=== PATIENT | female | born 1980 | race Caucasian/White ===

== ENCOUNTER → 2016-08-06 | Outpatient (CLI) | payer OTHER ==
[~2016-08-06] MED LIST: COLA100C3 PO; IBUP80TA PO; PERCOCET PO; PRENTAB40 PO; TYLE325T5 PO; TYLE500T78 PO; ZYRT10CA PO
[2016-08-06 13:10] LABS: BASO # 0.1 K/mm3 (0.0-0.2); BASO % 0.7 % (0.0-1.0); EOS # 0.2 K/mm3 (0.0-0.50); EOS % 1.9 % (0.0-3.0); LARGE UNSTAINED CELL # 0.1 K/mm3 (0.0-0.4); LARGE UNSTAINED CELL % 0.9 % (0.0-4.0); LYMPH # 1.8 K/mm3 (1.5-4.5); LYMPH % 19.6 % (24.0-44.0); MEAN CORPUSCULAR HEMOGLOBIN 29.7 pg (27.0-33.0); MEAN CORPUSCULAR HGB CONC 32.7 g/dl (32.0-36.5); MEAN CORPUSCULAR VOLUME 90.7 fl (80.0-96.0); MONO # 0.5 K/mm3 (0.0-0.8); MONO % 5.8 % (0.0-5.0); NEUTROPHILS # 6.1 K/mm3 (1.8-7.7); NEUTROPHILS % 71.2 % (36.0-66.0); PLATELET COUNT, AUTOMATED 348 k/mm3 (150-450); RED CELL DISTRIBUTION WIDTH 12.9 % (11.5-14.5); WHITE BLOOD COUNT 8.6 K/mm3 (4.0-10.0)
[2016-08-07 10:12] LABS: HBsAg Prenatal NEGATIVE (NEGATIVE)
== END ==
LOC: M WUC 08:24
PROVIDERS: ATTEND Specialist
DX: Z34.81 Encounter for supervision of other normal pregnancy, first trimester (principal)

== ENCOUNTER → 2016-10-30 | Outpatient (CLI) | payer OTHER ==
[~2016-10-30] MED LIST changes: -COLA100C3 PO; +COLA100C5 PO
--- NOTE | 2016-10-30 09:21 | REP ---
OBSTETRIC SONOGRAPHY: HISTORY: Supervision of for anatomy. Scanning through the gravid uterus demonstrates a viable single intrauterine gestation in a variable lie. motion is observed and heart rate is recorded at 144 beats per minute. An anterior grade 0 placenta is seen without evidence of previa. Amniotic fluid is subjectively normal. Closed cervical length is 5.1 cm measured transabdominally. No extrauterine abnormalities observed. No anomaly is seen. Cerebellum and posterior fossa, face and profile, four-chamber heart and outflow tract views are less than optimally seen due to position. The following additional anatomic structures are identified and felt to be sonographically unremarkable: cranium, choroid plexus, cavum, lungs, diaphragm, left-sided stomach, abdominal wall cord insertion, three-vessel umbilical cord, kidneys and bladder, spine, upper and lower extremities. Biometry Chart: BPD 4.9 cm = 20 weeks 6 days HC 18.8 cm = 21 weeks 1 day AC 16.0 cm = 21 weeks 1 day FL 3.5 cm = 21 weeks 1 day HL 3.3 cm = 21 weeks 0 days HC/AC ratio normal 1.18. Cephalic index normal 0.72. Estimated weight 398 grams, 0 pounds 14 ounces, 88th percentile for 20 weeks 0 days. IMPRESSION: Viable single intrauterine gestation at 21 weeks 0 days by today's composite criteria. DEVIN by today's sonography March 12, 2017. anatomic survey incomplete regarding visualization of face, heart and posterior fossa and cerebellum. Signed by Malick Lora MD 10/30/2016 10:48 A
== END ==
LOC: M RAD 07:12
PROVIDERS: ATTEND Specialist
DX: Z34.82 Encounter for supervision of other normal pregnancy, second trimester (principal)

== ENCOUNTER → 2016-10-30 | Outpatient (CLI) | payer OTHER ==
[2016-10-30 08:56] LABS: ALT/SGPT 12 U/L (12-78); AST/SGOT 7 U/L (15-37); BILIRUBIN,TOTAL 0.2 MG/DL (0.2-1.0); CREATININE FOR GFR 0.49 MG/DL (0.55-1.02); GLOMERULAR FILTRATION RATE > 60.0 (>60); URIC ACID 4.1 MG/DL (2.6-6.0)
== END ==
LOC: M LAB 06:40
PROVIDERS: ATTEND Advanced Practice Midwife
DX: O10.119 Pre-existing hypertensive heart disease complicating pregnancy, unspecified trimester (principal); O99.210 Obesity complicating pregnancy, unspecified trimester

== ENCOUNTER → 2016-11-04 | Outpatient (REF) | payer OTHER | LOC: M LAB REF 09:11 | PROVIDERS: ATTEND Advanced Practice Midwife | DX: O10.119 Pre-existing hypertensive heart disease complicating pregnancy, unspecified trimester (principal); O99.210 Obesity complicating pregnancy, unspecified trimester; Z36 Encounter for antenatal screening of mother; Z3A.00 Weeks of gestation of pregnancy not specified ==

== ENCOUNTER → 2016-11-14 | Outpatient (CLI) | payer OTHER | LOC: M LAB 07:00 | PROVIDERS: ATTEND Specialist | DX: Z36 Encounter for antenatal screening of mother (principal); Z3A.00 Weeks of gestation of pregnancy not specified ==

== ENCOUNTER → 2016-12-09 | Outpatient (CLI) | payer OTHER ==
[~2016-12-09] MED LIST changes: +INSUNSD SC; +INSURSD SC; +VITA200015 PO
--- NOTE | 2016-12-09 09:29 | REP ---
Obstetric sonography: History: Supervision of followup anatomy. Findings: Scanning through the gravid uterus demonstrates a viable single intrauterine gestation in a cephalic lie. motion is observed and heart rate is recorder 144 beats per minute. Placenta is anterior grade 1 without evidence of previa. Amniotic fluid is subjectively normal. Closed cervical length is 4.2 cm. No extrauterine abnormalities observed. There has been appropriate interval growth. No anomaly is seen. The following anatomic structures are identified today and felt to be sonographically unremarkable: cranium, choroid plexus, cavum, cerebellum posterior fossa, lungs, right ventricular outflow tract view, diaphragm, left-sided stomach, abdominal cord insertion, three-vessel cord, kidneys and bladder, spine, upper and lower extremities. Four-chamber heart and left ventricular outflow tract views still less than optimally seen. Facial profile still less than optimally seen. Biometry chart: BPD 6.6 cm 26 weeks 4 days head circumference 25.0 cm 27 weeks 1 day abdominal circumference 23.0 cm 27 weeks 3 days femur length 4.8 cm 26 weeks 1 day humeral length 4.6 cm 26 weeks 5 days HC/AC ratio normal 1.09 cephalic index normal 0.72 estimated weight 992 grams 2 pounds 2 ounces 75th percentile for 25 weeks 5 days. Impression: Viable single intrauterine gestation at the 26 weeks 6 days by today's composite sonographic criteria. Expected gestational age estimate based on prior sonography is 26 weeks 5 days. DEVIN by prior sonography March 12, 2017. Four-chamber heart and left ventricular outflow tract views still less than optimally seen. Signed by Malick Lora MD 12/09/2016 09:21 A
== END ==
LOC: M RAD 07:18
PROVIDERS: ATTEND Specialist
DX: O10.119 Pre-existing hypertensive heart disease complicating pregnancy, unspecified trimester (principal); Z3A.00 Weeks of gestation of pregnancy not specified

== ENCOUNTER → 2016-12-30 | Outpatient (CLI) | payer OTHER ==
[2016-12-30 08:50] LABS: MEAN CORPUSCULAR HEMOGLOBIN 29.6 pg (27.0-33.0); MEAN CORPUSCULAR HGB CONC 34.7 g/dl (32.0-36.5); MEAN CORPUSCULAR VOLUME 85.3 fl (80.0-96.0); RED CELL DISTRIBUTION WIDTH 14.8 % (11.5-14.5); WHITE BLOOD COUNT 8.8 K/mm3 (4.0-10.0)
== END ==
LOC: M LAB 08:01
PROVIDERS: ATTEND Specialist
DX: O10.119 Pre-existing hypertensive heart disease complicating pregnancy, unspecified trimester (principal); Z34.82 Encounter for supervision of other normal pregnancy, second trimester

== ENCOUNTER → 2016-12-30 | Outpatient (CLI) | payer OTHER ==
--- NOTE | 2016-12-30 11:00 | REP ---
Obstetric ultrasound for follow-up of anatomy. On prior studies the facial profile, four-chamber view of the heart and left cardiac ventricular outflow tracts were not optimally demonstrated. On the study today the facial profile, four-chamber view of the heart and cardiac left ventricular outflow tract are suboptimally demonstrated. There is again a single intrauterine gestation in a vertex presentation. There is motion and cardiac activity. heart rate is 163 beats per minute. The placenta is anterior. There is no placenta previa or abruptio. Placenta is grade 1. The amniotic fluid volume subjectively is normal. The cervix measures 5.0 cm length. The maternal adnexa and cul-de-sac are unremarkable. By the ultrasound today gestational age is 30 weeks 5 days with an DEVIN of 03/05/2017. Gestational age by the first ultrasound is 29 weeks 5 days and by LMP 28 weeks 5 days. weight is 1742 grams (3 pounds, 13 ounces). The gestational age is greater than 97th percentile for 28 weeks 5 days. Umbilical artery Doppler assessment: SD ratio 2.93. Resistive index 0.66. Diastolic flow velocity 13.9 cm/sec. These values are in their normal ranges Signed by Rusty Orona MD 12/30/2016 10:52 A
== END ==
LOC: M RAD 08:44
PROVIDERS: ATTEND Obstetrics & Gynecology
DX: Z36 Encounter for antenatal screening of mother (principal)

== ENCOUNTER → 2017-01-15 | Outpatient (CLI) | payer OTHER ==
--- NOTE | 2017-01-15 13:09 | REP ---
Obstetric sonography: History: Supervision of , growth study. Biophysical profile. 31 weeks. Findings: Scanning through the gravid uterus demonstrates a viable single intrauterine gestation in a cephalic lie. Placenta is anterior grade 1 without evidence of previa or abruption. Closed cervical length measured transabdominally is 4.6 cm. heart rate is recorded at 153 beats per minute. cranium, diaphragm, left-sided stomach, and urinary bladder are seen today and are felt to be unremarkable. JOAQUÍN is normal 13.1 cm. Biophysical profile score is 8 out of a possible 8. SD ratio in the umbilical cord artery by Doppler is 2.47 (2.50-3.50). Biometry chart: BPD 8.4 cm 33 weeks 6 days Head circumference 30.6 cm 34 weeks 0 days Abdominal circumference 31.2 cm 35 weeks 1 day Femur length 6.0 cm 31 weeks 1 day Humeral length 5.7 cm 32 weeks 6 days HC/AC ratio normal 1.0. Cephalic index normal 0.77. Estimated weight 2289 grams, 5 pounds 0 ounces, greater 97 percentile for 31 weeks 0 days. Impression: Viable single intrauterine gestation at 32 weeks 5 days by today's composite sonographic criteria. Expected gestational age estimate based on prior sonography is 31 weeks 0 days. DEVIN by prior sonography March 19, 2017. Signed by Malick Lora MD 01/15/2017 01:27 P
== END ==
LOC: M SMT 10:48
PROVIDERS: ATTEND Advanced Practice Midwife
DX: O10.119 Pre-existing hypertensive heart disease complicating pregnancy, unspecified trimester (principal); Z36.89 Encounter for other specified antenatal screening; Z3A.32 32 weeks gestation of pregnancy

== ENCOUNTER → 2017-01-23 | Outpatient (CLI) | payer OTHER ==
--- NOTE | 2017-01-23 09:38 | REP ---
OBSTETRIC SONOGRAPHY: HISTORY: Limited study for biophysical profile assessment. FINDINGS: Scanning demonstrates a single living intrauterine gestation in a cephalic lie. Close cervical length measured transabdominally is 4.6 cm. heart rate is recorder 147 beats per minute. An anterior grade 1 placenta is seen without evidence of previa. Amniotic fluid is subjectively normal. JOAQUÍN is normal at 7.9 cm. Biophysical profile score is 8 out of a possible 8. S/D ratio in the umbilical cord artery by Doppler is essentially normal at 2.41 (2.45-3.45). Signed by Malick Lora MD 01/23/2017 11:58 A
== END ==
LOC: M RAD 07:27
PROVIDERS: ATTEND Advanced Practice Midwife
DX: Z36.89 Encounter for other specified antenatal screening (principal); Z3A.00 Weeks of gestation of pregnancy not specified

== ENCOUNTER → 2017-01-30 | Outpatient (CLI) | payer OTHER ==
--- NOTE | 2017-01-31 05:30 | REP ---
Clinical: Additional diabetes Comparison: 01/23/2017 Findings: Examination demonstrates a single live intrauterine in cephalic presentation. motion is identified by technologist. Placenta is noted anteriorly and grade I without evidence for placenta previa or abruption. Amniotic fluid volume is normal. Cervix measures 4.8 cm in length and appears closed. No evidence for nuchal cord. Gestational age by first US 33 weeks 1 day with DEVIN 03/19/2017 . FHR equals 144 beats per minute. Biophysical profile score equals 8/8. Amniotic fluid index equals 9.6 cm (8.3 - 24.5) Impression: Advanced gestation in cephalic presentation. Biophysical profile score equals 8/8. Signed by Mina Reza MD 01/31/2017 05:21 A
== END ==
LOC: M SMT 08:48
PROVIDERS: ATTEND Advanced Practice Midwife
DX: O10.119 Pre-existing hypertensive heart disease complicating pregnancy, unspecified trimester (principal)

== ENCOUNTER → 2017-02-06 | Outpatient (CLI) | payer OTHER ==
--- NOTE | 2017-02-06 13:23 | REP ---
OB ULTRASOUND: Real-time sonographic evaluation of the gravid uterus is performed and demonstrates a single living intrauterine gestation. Estimated gestational age is 34 weeks 1 day, EDC 03/19/2017. Today's measurements indicate an estimated weight again over the 97th percentile as seen on prior study of 01/15/2017. BPD 92 mm = 37 weeks 1 days, 93rd percentile HC 322 mm = 36 weeks 2 days, 87th percentile AC 345 mm = 38 weeks 3 days, over 95th percentile Femur length 67 mm = 34 weeks 3 days, 55th percentile HC/AC ratio 0.93 is slightly below normal range of 0.94 to 1.13. Estimated weight 3127 grams over 97th percentile. heart rate 139 beats per minute. Amniotic fluid within normal limits, JOAQUÍN 14.6 within normal range of 8.1-24.8. Biophysical profile score is 8 out of 8. S/D ratio 2.43 within normal range and RI 0.59 within normal range. stomach, kidneys, and bladder are visualized and are grossly unremarkable. position is vertex. Placenta anterior and grade 1 with no previa or abruption. Signed by Rusty Limon MD 02/06/2017 02:39 P
== END ==
LOC: M SMT 11:42
PROVIDERS: ATTEND Advanced Practice Midwife
DX: O10.119 Pre-existing hypertensive heart disease complicating pregnancy, unspecified trimester (principal); Z36.89 Encounter for other specified antenatal screening; Z3A.34 34 weeks gestation of pregnancy

== ENCOUNTER → 2017-02-20 | Outpatient (CLI) | payer OTHER ==
--- NOTE | 2017-02-20 16:06 | REP ---
Obstetric sonography: Limited study. History: Supervision of , gestational diabetes and hypertension. For biophysical profile. Findings: Scanning through the gravid uterus demonstrates a viable single intrauterine gestation in a cephalic lie. Placenta is anterior, grade 1 without evidence of previa or abruption. Closed cervical length could not be measured due to head position. Amniotic fluid is subjectively normal. JOAQUÍN is normal at 12.9 cm. heart rate is recorded at 153 beats per minute. S/D ratio in the umbilical cord artery by Doppler is normal 2.47. Biophysical profile score is 8 out of a possible 8. Signed by Malick Lora MD 02/20/2017 05:23 P
== END ==
LOC: M SMT 08:29
PROVIDERS: ATTEND Advanced Practice Midwife
DX: O10.119 Pre-existing hypertensive heart disease complicating pregnancy, unspecified trimester (principal); Z3A.36 36 weeks gestation of pregnancy

== ENCOUNTER 2017-02-27 05:36 | Inpatient (IN) | payer OTHER ==
[~2017-02-27] VITALS: Ht 154.9 cm; Wt 148.5 kg
[2017-02-27] VITALS (8 sets, daily range): BP systolic 106–135; BP diastolic 50–80
[2017-02-27] MEDS ORDERED: LR 1,000 ML IV SCH ×2 (06:00→09:30)
[2017-02-27] MEDS ORDERED: LR 800 ML IV ONE (06:00)
[2017-02-27] MEDS ORDERED: BICITRA 30ML SOLN UDC PO ONE (06:00)
[2017-02-27 06:54] LABS: MEAN CORPUSCULAR HEMOGLOBIN 27.8 pg (27.0-33.0); MEAN CORPUSCULAR HGB CONC 32.8 g/dl (32.0-36.5); MEAN CORPUSCULAR VOLUME 84.7 fl (80.0-96.0); PLATELET COUNT, AUTOMATED 267 10^3/uL (150-450); RED CELL DISTRIBUTION WIDTH 14.5 % (11.5-14.5); WHITE BLOOD COUNT 7.9 10^3/uL (4.0-10.0)
[2017-02-27] MEDS ORDERED: ceFAZolin 2 GM/D5W 50 ML IV BAG (J0690 PER 500MG) As Ordered ONE (07:14)
[2017-02-27] MEDS ORDERED: ONDANSETRON 4MG/2ML VIAL (J2405) IV PRN ×3 (07:48→09:30)
[2017-02-27] MEDS ORDERED: METOCLOPRAMIDE INJ 10MG/2ML VIAL (J2765) IV PRN (07:48)
[2017-02-27] MEDS ORDERED: NALOXONE INJ 0.4 MG/1 ML VIAL (J2310) IV PRN ×2 (07:48)
[2017-02-27] MEDS ORDERED: dexameTHASONE 4 MG/ML 1ML VIAL (J1100) As Ordered ONE (08:11)
[2017-02-27] MEDS ORDERED: KETOROLAC 60 MG/2 ML VIAL (J1885) As Ordered ONE (08:11)
[2017-02-27] MEDS ORDERED: MORPHINE PRES-FREE INJ 10 MG/10 ML VIAL (J2274) As Ordered ONE (08:11)
[2017-02-27] MEDS ORDERED: ONDANSETRON 4MG/2ML VIAL (J2405) As Ordered ONE (08:11)
[2017-02-27] MEDS ORDERED: PHENYLephrine HCL 500 MCG/5 ML (100MCG/ML) SYRINGE (J2370) As Ordered ONE (08:11)
[2017-02-27] MEDS ORDERED: ePHEDrine SULFATE 25 MG/5 ML(5MG/ML) SYRINGE As Ordered ONE (08:11)
[2017-02-27] MEDS ORDERED: OXYTOCIN INJ 10 UNITS/ML VIAL (J2590) As Ordered ONE (08:11)
[2017-02-27] MEDS ORDERED: hydrALAZINE INJ 20 MG/ML VIAL As Ordered ONE (08:36)
[2017-02-27] MEDS ORDERED: RHOGAM 300 MCG (1500 IU) INJ (J2790) IM SCH (09:00)
[2017-02-27] MEDS ORDERED: PERCOCET 5MG/325MG TAB PO PRN ×2 (09:00)
[2017-02-27] MEDS ORDERED: LIDOCAINE 1% MDV INJ 50 ML VIAL INFIL ONE (09:00)
[2017-02-27] MEDS ORDERED: OXYTOCIN DRIP 30 UNITS in APPROPRIATE DILUENT 1 EA IV ONE (09:00)
[2017-02-27] MEDS ORDERED: DOCUSATE SODIUM 100 MG CAP PO PRN (09:00)
[2017-02-27] MEDS ORDERED: MEASLES,MUMPS,RUBELLA VACCINE INJ (MMR-II) (90707) SC SCH (09:00)
[2017-02-27] MEDS ORDERED: MORPHINE 2 MG/ML 1ML SYRINGE IV PRN (09:30)
[2017-02-27] MEDS ORDERED: fentaNYL 100 MCG/2 ML INJECTION (J3010) IV PRN (09:30)
[2017-02-27] MEDS ORDERED: NALBUPHINE HCL 10 MG/ML AMP (J2300) IV PRN (09:30)
[2017-02-27] MEDS ORDERED: MEPERIDINE INJ 25 MG/ML VIAL (J2175) IV PRN (09:30)
[2017-02-27] MEDS ORDERED: PERC5TAB12 PO (10:04)
[2017-02-27] MEDS: LR 1,000 ML IV SCH ×3 (11:30→20:18)
--- NOTE | 2017-02-27 11:58 | RO ---
DATE OF PROCEDURE: 02/27/2017 PREPROCEDURE DIAGNOSES: 37-1/17 weeks gestation. Prior . Gestational diabetes requiring insulin. Macrosomia. POSTPROCEDURE DIAGNOSES: 37-1/17 weeks gestation. Prior . Gestational diabetes requiring insulin. Macrosomia. PROCEDURE: Repeat low transverse section and bilateral tubal ligation SURGEON: Dr. Srini Ni. MECHANICAL DESIGNER: Dr. Devon Han. ANESTHESIA: Spinal. ESTIMATED BLOOD LOSS: 500 mL. URINE OUTPUT: 400 mL FLUID: 1900 mm lactated ringers. FINDINGS: 3820 grams or 8 pounds, 7 ounce female , Apgars 9 and 9. Normal uterus, fallopian tubes and ovaries. DESCRIPTION OF PROCEDURE: The patient was taken to the operating room where spinal anesthesia was induced. She was prepped and draped in a sterile fashion in the supine position. A Conteh catheter was placed. A Pfannenstiel skin incision was made with the scalpel and carried through to the fascia. The fascia was nicked and extended and the fascia dissected off the rectus muscles. The rectus muscles were divided. The peritoneal cavity was entered. A bladder flap was created. Curvilinear incision was made in the lower uterine segment until clear fluid was noted. This was extended manually. The infant delivered in the vertex position without difficulty. The infant cried spontaneously and was handed to the waiting nurses. The placenta was expressed. The uterus was exteriorized and cleared of clots and debris. The uterine incision was closed with 0 Vicryl in a running locked fashion. Second imbricating layer of 0 Vicryl was placed. The uterus placed back into the abdominal cavity. The peritoneum was closed with #2-0 Vicryl in a running fashion. The fascia was closed with 0 Vicryl in a running fashion. The deep layer was irrigated and closed with #3-0 chromic. Skin was closed with #4-0 Monocryl, subcuticular stitches. Sponge, instrument and needle counts were correct.
[2017-02-27] MEDS: CETIRIZINE (ZyrTEC) 10 MG TAB PO SCH (14:03)
[2017-02-27] MEDS: KETOROLAC 30 MG/ML VIAL (J1885) IV SCH ×2 (14:03→20:19)
[2017-02-27] MEDS: PRENATAL VITAMINS CHEWABLE TABLET PO SCH (14:04)
[2017-02-27] MEDS: NALBUPHINE HCL 10 MG/ML AMP (J2300) IV PRN (16:57)
[2017-02-28] VITALS (7 sets, daily range): BP systolic 99–126; BP diastolic 53–62
[2017-02-28] MEDS: NALBUPHINE HCL 10 MG/ML AMP (J2300) IV PRN (02:20)
[2017-02-28] MEDS: KETOROLAC 30 MG/ML VIAL (J1885) IV SCH (02:21)
[2017-02-28 07:16] LABS: MEAN CORPUSCULAR HEMOGLOBIN 27.5 pg (27.0-33.0); MEAN CORPUSCULAR HGB CONC 32.2 g/dl (32.0-36.5); MEAN CORPUSCULAR VOLUME 85.4 fl (80.0-96.0); PLATELET COUNT, AUTOMATED 276 10^3/uL (150-450); RED CELL DISTRIBUTION WIDTH 14.9 % (11.5-14.5)
[2017-02-28] MEDS: PRENATAL VITAMINS CHEWABLE TABLET PO SCH (09:41)
[2017-02-28] MEDS: IBUPROFEN 800 MG TAB PO SCH ×2 (09:42→17:32)
[2017-02-28] MEDS: CETIRIZINE (ZyrTEC) 10 MG TAB PO SCH (12:05)
[2017-03-01] MEDS: IBUPROFEN 800 MG TAB PO SCH ×2 (01:52→09:15)
[2017-03-01 05:45] VITALS: BP 131/65
[2017-03-01] MEDS ORDERED: NYSTATIN 100,000 UNITS/GM TOPICAL PWD 15 GM TOP SCH (09:00)
[2017-03-01] MEDS: CETIRIZINE (ZyrTEC) 10 MG TAB PO SCH (09:15)
[2017-03-01] MEDS: PRENATAL VITAMINS CHEWABLE TABLET PO SCH (09:15)
[2017-03-01] MEDS ORDERED: COLA100C5 PO (11:34)
[2017-03-01] MEDS ORDERED: PERCOCET PO (11:34)
[2017-03-01] MEDS ORDERED: MOTR200T44 PO (11:34)
--- NOTE | 2017-03-02 21:11 | DSES ---
DATE OF ADMISSION: 02/27/2017 DATE OF DISCHARGE: 03/01/2017 DISCHARGE DIAGNOSES: 1. Repeat section. 2. Gestational diabetes. 3. Satisfied parity with undesirable fertility. PROCEDURES PERFORMED WHILE IN HOSPITAL: 1. Repeat section with tubal ligation. 2. Spinal anesthesia. DISCHARGE CONDITION, HISTORY AND HOSPITAL COURSE: Mrs. Raman presented for scheduled section with request for tubal ligation, which was uncomplicated, productive of a live-born female infant, score of 9 and 9. Weight was 3820 grams, 8 pounds, 7 ounces. Estimated blood loss for operation was 1200 mL. She did well postoperatively. By postoperative day number two, had met all discharge criteria, so was discharged home in stable condition. PHYSICAL EXAMINATION ON DAY OF DISCHARGE: Her vital signs are stable. She is afebrile. General appearance is well-appearing. No acute distress. Her abdomen was soft, appropriately tender. Fundus was at umbilicus. Her incision was clean, dry and intact, well-approximated, non erythemic. Extremities negative for calf tenderness. DISCHARGE MEDICATION: - ibuprofen - Percocet DISCHARGE INSTRUCTIONS: 1. She was instructed to follow up in two weeks for incision check. 2. Report severe pain, vaginal bleeding, fever or incisional issues. 3. Remain on pelvic rest for six weeks.
== END 2017-03-01 12:36 | disposition home or self-care (01) | DRG 766 ==
LOC: M LDI 05:36 → M OBS 10:59
PROVIDERS: ADMIT Specialist; ATTEND Specialist
PROC: 0UB70ZZ Excision of Bilateral Fallopian Tubes, Open Approach (ICD-10-PCS; 2017-02-27)
PROC: 10D00Z1 Extraction of Products of Conception, Low, Open Approach (ICD-10-PCS; principal; 2017-02-27 07:30)
DX: O34.211 Maternal care for low transverse scar from previous cesarean delivery (principal); O24.424 Gestational diabetes mellitus in childbirth, insulin controlled; Z3A.37 37 weeks gestation of pregnancy; O36.63X0 Maternal care for excessive fetal growth, third trimester, not applicable or unspecified; Z37.0 Single live birth; Z30.2 Encounter for sterilization

== ENCOUNTER → 2017-06-03 | Outpatient (CLI) | payer OTHER ==
[2017-06-03 09:47] LABS: ALBUMIN 3.6 GM/DL (3.2-5.2); ALBUMIN/GLOBULIN RATIO 0.95 (1.00-1.93); ALKALINE PHOSPHATASE 101 U/L (45-117); ALT/SGPT 33 U/L (12-78); ANION GAP 5 MEQ/L (8-16); AST/SGOT 19 U/L (7-37); BILIRUBIN,TOTAL 0.4 MG/DL (0.2-1.0); BLOOD UREA NITROGEN 15 MG/DL (7-18); CALCIUM LEVEL 8.8 MG/DL (8.5-10.1); CARBON DIOXIDE LEVEL 32 MEQ/L (21-32); CHLORIDE LEVEL 104 MEQ/L (98-107); CREATININE FOR GFR 0.68 MG/DL (0.55-1.30); GLOMERULAR FILTRATION RATE > 60.0 (>60); GLUCOSE, FASTING 85 MG/DL (70-100); POTASSIUM SERUM 4.4 MEQ/L (3.5-5.1); SODIUM LEVEL 141 MEQ/L (136-145); TOTAL PROTEIN 7.4 GM/DL (6.4-8.2)
[2017-06-03 10:59] LABS: ESTIMATED AVERAGE GLUCOSE 120 MG/DL (60-110); HEMOGLOBIN A1c 5.8 %
== END ==
LOC: M WUC 08:19
DX: R73.9 Hyperglycemia, unspecified (principal)

== ENCOUNTER → 2017-09-12 | Outpatient (CLI) | payer OTHER ==
[2017-09-12 10:21] LABS: ESTIMATED AVERAGE GLUCOSE 105 MG/DL (60-110); HEMOGLOBIN A1c 5.3 %
== END ==
LOC: M WUC 08:19
DX: R73.9 Hyperglycemia, unspecified (principal)

== ENCOUNTER → 2018-11-20 | Outpatient (REF) | payer BC, OTHER ==
[~2018-11-20] MED LIST changes: +MOTR200T44 PO; +PERC5TAB12 PO
== END ==
LOC: M SFHCPLAZ 10:43
PROVIDERS: ATTEND Dermatology
DX: D23.60 Other benign neoplasm of skin of unspecified upper limb, including shoulder (principal); D22.5 Melanocytic nevi of trunk

== ENCOUNTER → 2018-12-31 | Outpatient (REF) | payer BC | LOC: M LAB REF 14:05 | PROVIDERS: ATTEND Physician Assistant | DX: R30.0 Dysuria (principal) ==

== ENCOUNTER → 2019-01-18 | Outpatient (CLI) | payer BC ==
[2019-01-18 14:51] LABS: FOLATE 10.8 NG/ML (>5.4); TOTAL 25(OH) VITAMIN D 39.8 NG/ML (30.0-100.0)
[2019-01-23 08:06] LABS: VITAMIN A, RETINOL LEVEL 34.1 ug/dL (18.9-57.3); VITAMIN B1 LEVEL WHOLE BLOOD 147.5 nmol/L (66.5-200.0); VITAMIN E(ALPHA TOCOPHEROL) 10.6 mg/L (5.9-19.4); VITAMIN E(GAMMA TOCOPHEROL) 0.4 mg/L (0.7-4.9)
== END ==
LOC: M LAB 13:17
PROVIDERS: ATTEND Nurse Practitioner Psychiatric/Mental Health
DX: Z68.42 Body mass index [BMI] 45.0-49.9, adult (principal); Z13.29 Encounter for screening for other suspected endocrine disorder

== ENCOUNTER → 2019-05-31 | Outpatient (CLI) | payer BC ==
[2019-05-31 09:18] LABS: FERRITIN 24 NG/ML (8-252)
[2019-05-31 11:05] LABS: PREALBUMIN 16.9 MG/DL (20.0-40.0); VITAMIN B12 LEVEL > 2000 PG/ML (247-911)
[2019-05-31 11:06] LABS: FOLATE 20.4 NG/ML (>5.4)
== END ==
LOC: M LAB 07:58
PROVIDERS: ATTEND Surgery
DX: Z98.84 Bariatric surgery status (principal)

== ENCOUNTER → 2019-07-05 | Outpatient (REF) | payer BC | LOC: M SFHCWAGY 13:09 | PROVIDERS: ATTEND Specialist | DX: Z01.419 Encounter for gynecological examination (general) (routine) without abnormal findings (principal) | CPT/HCPCS: 87624; G0123 ==

== ENCOUNTER → 2019-09-10 | Outpatient (CLI) | payer BC ==
[2019-09-10 09:21] LABS: ALBUMIN 3.4 GM/DL (3.2-5.2); FERRITIN 16 NG/ML (8-252)
[2019-09-10 10:34] LABS: TOTAL 25(OH) VITAMIN D 33.6 NG/ML (30.0-100.0); VITAMIN B12 LEVEL > 2000 PG/ML
[2019-09-10 11:18] LABS: FOLATE > 24.0 NG/ML
[2019-09-15 15:11] LABS: VITAMIN A, RETINOL LEVEL 37.9 ug/dL (18.9-57.3); VITAMIN B6,PYRIDOXAL PHOSPHATE 20.7 ug/L (2.0-32.8); VITAMIN E(ALPHA TOCOPHEROL) 11.9 mg/L (5.9-19.4); VITAMIN E(GAMMA TOCOPHEROL) 0.2 mg/L (0.7-4.9); VITAMIN K1 0.28 ng/mL (0.13-1.88)
== END ==
LOC: M LAB 09-09 16:13
PROVIDERS: ATTEND Surgery
DX: Z98.84 Bariatric surgery status (principal)

== ENCOUNTER → 2019-12-03 | Outpatient (CLI) | payer BC | LOC: M LABSMTC 14:18 | PROVIDERS: ATTEND Pediatrics | DX: Z20.828 Contact with and (suspected) exposure to other viral communicable diseases (principal) | CPT/HCPCS: C9803; U0002 ==

== ENCOUNTER → 2020-02-25 | Outpatient (CLI) | payer SELFPAY | LOC: M LABSMTC 13:39 | PROVIDERS: ATTEND Pediatrics | DX: Z20.828 Contact with and (suspected) exposure to other viral communicable diseases (principal) ==

== ENCOUNTER → 2020-04-25 | Outpatient (REF) | payer SELFPAY | LOC: M LABSMTC 04-24 08:35 → EDSTATUS 14:20 → M LABSMTC 14:20 | PROVIDERS: ATTEND Pediatrics | DX: Z20.828 Contact with and (suspected) exposure to other viral communicable diseases (principal) ==

== ENCOUNTER → 2020-05-25 | Outpatient (CLI) | payer BC ==
[2020-05-25 09:00] LABS: BASO # 0.1 10^3/uL (0.0-0.2); EOS # 0.2 10^3/uL (0.0-0.5); EOS % 2.8 % (0.0-3.0); HEMATOCRIT 36.1 % (36.0-47.0); HEMOGLOBIN 11.6 g/dl (12.0-15.5); LYMPH # 1.6 10^3/uL (1.5-5.0); LYMPH % 25.4 % (24.0-44.0); MEAN CORPUSCULAR HGB CONC 32.1 g/dl (32.0-36.5); MEAN CORPUSCULAR VOLUME 90.3 fl (80.0-96.0); MONO # 0.5 10^3/uL (0.0-0.8); MONO % 7.3 % (0.0-5.0); NEUTROPHILS # 3.9 10^3/uL (1.5-8.5); PLATELET COUNT, AUTOMATED 328 10^3/uL (150-450); WHITE BLOOD COUNT 6.1 10^3/uL (4.0-10.0)
[2020-05-25 09:24] LABS: ALBUMIN 3.7 GM/DL (3.2-5.2); ALT/SGPT 28 U/L (12-78); BILIRUBIN,TOTAL 0.3 MG/DL (0.2-1.0); BLOOD UREA NITROGEN 10 MG/DL (7-18); CALCIUM LEVEL 8.7 MG/DL (8.5-10.1); CARBON DIOXIDE LEVEL 30 MEQ/L (21-32); CHLORIDE LEVEL 105 MEQ/L (98-107); FERRITIN 7 NG/ML (8-252); GLOMERULAR FILTRATION RATE > 60.0 (>58); GLUCOSE, FASTING 80 MG/DL (70-100); IRON (FE) 50 UG/DL (50-170); PERCENT SATURATION 13.2 % (13.2-45.0); POTASSIUM SERUM 4.3 MEQ/L (3.5-5.1); SODIUM LEVEL 141 MEQ/L (136-145); TOTAL IRON BINDING CAPACITY 379 UG/DL (250-450); TOTAL PROTEIN 6.8 GM/DL (6.4-8.2)
[2020-05-25 09:29] LABS: TOTAL 25(OH) VITAMIN D 25.7 NG/ML (30.0-100.0); VITAMIN B12 LEVEL > 2000 PG/ML
[2020-05-25 09:30] LABS: FOLATE > 24.0 NG/ML
== END ==
LOC: M LAB 08:08
PROVIDERS: ATTEND Physician Assistant
DX: E66.9 Obesity, unspecified (principal)

== ENCOUNTER → 2020-12-07 | Outpatient (CLI) | payer BC ==
--- NOTE | 2020-12-07 11:20 | REP ---
INDICATION: LT WRIST RONALD COMPARISON: None. TECHNIQUE: AP, lateral, oblique views left wrist. FINDINGS: The carpal bones, surrounding osseous structures, soft tissues, and joint spaces are essentially normal and age-appropriate. Very minimal increased sclerosis along the radial surface with subtle radiocarpal joint space narrowing should be correlated clinically. There is no evidence for acute fracture or dislocation. No subcutaneous emphysema or radiodense foreign body. IMPRESSION: Essentially age-appropriate examination. Questionable early degenerative changes at the radiocarpal joint line. <Electronically signed by Mina Reza > 12/07/20 [id number]
== END ==
LOC: M SOG 10:54
PROVIDERS: ATTEND Orthopaedic Surgery
DX: M25.532 Pain in left wrist (principal)

== ENCOUNTER → 2020-12-07 | Outpatient (CLI) | payer BC ==
--- NOTE | 2020-12-07 09:16 | REPMRS ---
Patient History The patient states she has not had a clinical breast exam in over a year. Patient had first child at age 34. Family history of unknown cancer in maternal aunt, unknown cancer in paternal grandmother. Baseline No breast complaints today Patient signed the MRS sheet 1st covid vaccine in and the 2nd in Apr., both Moderna, not sure of dates or which arm. Patient Identification Verified Patient denied Digital Woman Screen Mammo: December 07, 2020 - Exam #: [id number] Bilateral CC and MLO view(s) were taken. Technologist: Janelle Thao, Technologist FINDINGS: There are scattered fibroglandular densities. The Volpara volumetric breast density category is: B. There is no evidence of dominant mass, architectural distortion, or grouped microcalcification typical of malignancy. 3-D tomosynthesis shows no additional findings. Assessment: BI-RADS/ACR category 1 mammogram. Negative Mammogram. Recommendation Routine screening mammogram of both breasts in 1 year (for women over age 40). This patient's [facility] Lifetime Breast Cancer RIsk is estimated at 15.2 %. This mammogram was interpreted with the aid of an FDA-approved computer-aided dectection system. Electronically Signed By: Dakota Lora MD 12/07/20 0916
== END ==
LOC: M WHC 08:24
PROVIDERS: ATTEND Physician Assistant
DX: Z12.31 Encounter for screening mammogram for malignant neoplasm of breast (principal)

== ENCOUNTER → 2020-12-12 | Outpatient (CLI) | payer BC ==
--- NOTE | 2020-12-13 06:26 | REP ---
INDICATION: N92.0 EXCESSIVE MENSES COMPARISON: None. TECHNIQUE: Transabdominal pelvic ultrasound followed by transvaginal examination for better evaluation of the endometrium and adnexa with color Doppler evaluation of the ovaries. FINDINGS: Bladder is unremarkable and measures 9.9 x 6.5 x 7.0 cm. Heterogeneous uterus measures 9.6 x 4.5 x 5.6 cm. The endometrial complex measures 11 mm excluding small amount of endocervical fluid thickness. 1.1 x 0.8 x 0.8 cm posterior intramural fibroid noted. Bilateral ovaries are normal in appearance and vascularity without evidence for torsion. Right ovary measures 2.3 x 1.6 x 2.6 cm; R I = 0.61. Left ovary measures 2.6 x 2.0 x 1.7 cm; R I = 0.49. No pelvic fluid or adnexal mass lesion. IMPRESSION: Small intramural fibroid. <Electronically signed by Mina Reza > 12/13/20 0623
== END ==
LOC: M WHC 14:00
PROVIDERS: ATTEND Specialist
DX: N92.0 Excessive and frequent menstruation with regular cycle (principal)

== ENCOUNTER → 2020-12-21 | Outpatient (CLI) | payer BC | LOC: M LAB 07:34 | PROVIDERS: ATTEND Surgery | DX: Z71.3 Dietary counseling and surveillance (principal); E55.9 Vitamin D deficiency, unspecified; Z98.84 Bariatric surgery status; K91.2 Postsurgical malabsorption, not elsewhere classified; E56.0 Deficiency of vitamin E; Z68.38 Body mass index [BMI] 38.0-38.9, adult ==

== ENCOUNTER 2021-01-16 10:45 | Outpatient (RCR) | payer BC ==
[2021-01-19] MEDS ORDERED: EFFE75CA2 PO (10:53)
[2021-01-19] MEDS ORDERED: VITA100020 PO (10:53)
[2021-01-19] MEDS ORDERED: VITA-243 PO (10:53)
[2021-01-19] MEDS ORDERED: ALLE180T33 PO (10:53)
[2021-01-19] MEDS ORDERED: CITRTAB19 PO (10:53)
[2021-01-19] MEDS ORDERED: OLOP0.1D OU (10:53)
[2021-01-19] MEDS ORDERED: D31000TA2 PO (10:53)
[2021-01-19] MEDS ORDERED: FLON1SPR (10:53)
[2021-01-19] MEDS ORDERED: FERR325T81 PO (10:53)
[2021-01-19] MEDS ORDERED: BIOT50004 PO (10:53)
[2021-01-19] MEDS ORDERED: VITMTA PO (10:53)
[2021-01-19] MEDS ORDERED: BETA5OI TOP (10:53)
== END 2021-02-11 ==
LOC: CANPRERCR → M PT 10:45
DX: M54.50 Low back pain, unspecified (principal); M25.559 Pain in unspecified hip

== ENCOUNTER → 2021-01-22 | Outpatient (CLI) | payer BC ==
[~2021-01-22] MED LIST changes: +ALLE180T33 PO; +BETA5OI TOP; +BIOT50004 PO; +CITRTAB19 PO; +D31000TA2 PO; +EFFE75CA2 PO; +FERR325T81 PO; +FLON1SPR; +OLOP0.1D OU; +VITA-243 PO; +VITA100020 PO; +VITMTA PO
== END ==
LOC: M LABSMTC 11:44
PROVIDERS: ATTEND Anesthesiology
DX: Z01.818 Encounter for other preprocedural examination (principal); Z11.52 Encounter for screening for COVID-19

== ENCOUNTER 2021-01-26 09:03 | Day surgery (SDC) | payer BC ==
[~2021-01-26] VITALS: Ht 154.9 cm; Wt 92.4 kg
[~2021-01-26 09:03] MED LIST changes: +LIDOCAINE 1% MDV 20ML VIAL SQ PRN; +LR 1,000 ML IV ONE
--- OUTSIDE RECORDS SUMMARY | 2021-01-26 09:09 | CCD | Continuity of Care Document ---
Author Author Marilee LEE DO Organization Unknown Address [address] [facility], [facility] [place] [address] Phone [phone] Care Team Providers Care Senior Sales Consultant Name Role Phone Eri Kuhn D.O. AUTM AUTM Unavailable Problems Active Problems Provider Date Obstructive sleep apnea syndrome CARRILLO Parrish Onset: 04/17/2020 Social History Type Date Description Comments Sex Unknown ETOH Use Sociable Recreational Drug Use Denies Drug Use Tobacco Use Start: Unknown End: Unknown Patient is a former smoker cigarettes 1/2 ppd 7 years Smoking Status Reviewed: 12/07/20 Patient is a former smoker ci garettes 1/2 ppd 7 years Allergies, Adverse Reactions, Alerts Active Allergies Criticality Reaction | Severity Comments Date PCN Unable to assess criticality ITP 04/19/2013 Zithromax Unable to assess criticality rash on face 04/19/2013 Seasonal Unable to assess criticality 06/02/2013 Medications Active Medications SIG Qnty Indications Ordering Provide r Date Effexor XR 75mg Caps ER 24HR 1 tab by mouth daily Unknown Flonase Sensimist 27 .5mcg/[place] Suspension 2 sprays per nostril twice daily Unknown Patanol 0.1% Solution as need ed Unknown Vitamin D3 25mcg (1000 Ut) Tablets 1 by mouth every day Unknown Vitamin E 400Unit Capsules 2 by mouth once daily Unknown Vitamin C 1000mg Tablets 1 by mouth every day Unknown Biotin 5000mcg Capsules 4000mcg daily by mouth Unknown Iron 325(65Fe) mg Tablets 1 tab by mouth every day with dinner Unknown History Medications No Active Medications Unknown - 12/07/2020 Immunizations CPT Code Status Date Vaccine Lot # [id number] Given 01/09/2017 Influenza Virus Split 3 Yrs And Above For Intramuscular Use [id number] Given 12/27/2016 Tetanus, Diphthe allison Toxoids/Acellular Pertussis Vaccine 7 Or > [id number] Given 09/29/2013 Tetanus, Diphthe allison Toxoids/Acellular Pertussis Vaccine 7 Or > Vital Signs Date Vital Result Comment 12/07/2020 10:25am Body Temperature 97.9 F 04/17/2020 1:32pm BP Systolic 116 mmHg BP Diastolic 76 mmHg Heart Rate 76 /min O2 % BldC Oximetry 99 % Body Temperature 97.4 F Height 61 inches 5'1" Weight 203.00 lb BMI (Body Mass Index) 38.4 kg/m2 [place] Body Weight 105 lb Weight 92.081 kg BSA (Body Surface Area) 1.90 m2 Results Description No Information Available Procedures Date Code Description Status 12/07/2020 80886 Office/Outpatient [facility] 30 -44 Minutes Completed Medical Devices Description No Information Available Encounters Type Date Location Provider Dx Diagnosis Office Visit 12/07/2020 10:30a [facility] Orthoped[facility] Felisa Lee DO S66.012A Strain long flexor musc/fasc/tend l thm at wrs/hnd lv, init M25.532 Pain in left wrist M24.832 Oth specific joint derangeme nts of left wrist, NEC Assessments Date Code Description Provider 12/21/2020 M25.532 Pain in left wrist Von Lee DO 12/07/2020 S66.012A Strain of long flexo r muscle, fascia and tendon of left thumb at wrist and hand level, initial encounter Farhat Lee DO 12/07/2020 M25.532 Pain in left wrist Von Lee DO 12/07/2020 M24.832 Other specific joint derangements of left wrist, not elsewhere classified Farhat Lee DO Plan of Treatment Future Appointment(s):* 04/17/2021 3:30 pm - CARRILLO Parrish at [facility] Pulmonary/Thoracic 12/21/2020 - Farhat Lee DO* M25.532 Pain in left wrist* Comments:* Follow-up as needed. Functional Status Description No Information Available Mental Status Description No Information Available Referrals Description No Information Available
--- OUTSIDE RECORDS SUMMARY | 2021-01-26 09:09 | CCD | Continuity of Care Document ---
Author Author Marilee KUHN Organization Unknown Address [address] [place] [address] Phone [phone] Care Team Providers Care Production Team Advisor Name Role Phone Eri Kuhn D.O. AUTM Problems Active Problems Provider Date Adult health examination Eri Kuhn D.O. Onset: 1 Adult health examination Eri Kuhn D.O. Onset: 1 Elevated blood-pressure reading without diagnosis of h ypertension Eri Griffith D.O. Onset: 01/13/2015 Morbid obesity Eri Kuhn D.O. Onset: 2014 Vitamin D deficiency Eri Kuhn D.O. Onset: 02/13 Obstructive sleep apnea syndrome Eri Kuhn D.O. Onset: 02/13/2015 Social History Type Date Description Comments Sex Unknown Tobacco Use Start: Unknown End: Unknown Quit 02/13 014 Smoking Status Reviewed: 10/01/19 Quit 02/2014 ETOH Use Occasionally consumes alcohol Tobacco Use Start: Unknown End: Unknown Patient is a former smoker Recreational Drug Use Denies Drug Use Exercise Type/Frequency Does not exercise Sun Exposure Uses sunscreen Seat Belt/Car Seat Always uses seat belt Allergies, Adverse Reactions, Alerts Active Allergies Criticality Reaction | Severity Comments Date Penicillin Unable to assess criticality 01/13/2015 Zithromax Unable to assess criticality 01/13/2015 Doxycycline Unable to assess criticality Urticaria 05/23/2016 Medications Active Medications SIG Qnty Indications Ordering Provide r Date Venlafaxine HCL ER 75mg Caps ER 24 HR 1 by mouth every day 90caps F41.1 Eri Kuhn D.O. 11/28 Vitamin C W/Vitamin E [id number] Capsules Ashwin MadrigalOAnt 06/01/[address] 1 by mouth every day 90caps R10.10 Ashwin Madrigal.O. 06/01 Vitamin D (Ergocalciferol) 1.25mg (16039 Ut) Capsules 1 capsule weekly for 12 weeks 12caps Ashwin Portillo.O. 05/28/2020 Liliya Allergy 60mg Tablets 1 by mouth every day 30tabs Nanci MadrigalO. 10/02 Multivitamin Adults Tablets Ashwin Madrigal.OAnt 10/02/2018 Patanol 0.1% Solution 1 drop daily in each eye as needed 1units Eri Kuhn D.O. 06/06 Fluticasone Propionate 50mcg/Act Suspension 2 spray each nostril once a day 32gm Ashwin Pinzon.OAnt 01/13/2015 Iron 325(65Fe) mg Tablets 1 by mouth every day Unknown Vitamin E 400Unit Capsules take four capsule by mouth once a day Unknown 00/0 Biotin 1mg Capsules 4 by mouth twice a day Unknown Calcium 500mg Tablets 1 by mouth twice a day Unknown History Medications Venlafaxine HCL ER 37.5mg Caps ER 24HR 1 by mouth every day 90caps F41.1 Ashwin Madrigal.O. - 11/28/2020 Immunizations CPT Code Status Date Vaccine Lot # [id number] Given 03/31/2019 Pneumococcal Con jugate Vaccine 13 Valent For Intramuscular Use [id number] U-Flu Given 02/09/2015 Influenza,Unspecified Vital Signs Date Vital Result Comment 11/28/2020 8:10am BP Systolic 110 mmHg BP Diastolic 64 mmHg Height 61.2 inches 5'1.20" Weight 204.00 lb BMI (Body Mass Index) 38.3 kg/m2 Heart Rate 62 /min Respiratory Rate 14 /min Body Temperature 98.1 F O2 % BldC Oximetry 98 % [place] Body Weight 105 lb 10/24/2020 8:01am BP Systolic 118 mmHg BP Diastolic 72 mmHg Height 61.2 inches 5'1.20" Weight 198.38 lb BMI (Body Mass Index) 37.2 kg/m2 Heart Rate 75 /min Respiratory Rate 18 /min Body Temperature 98.0 F O2 % BldC Oximetry 99 % [place] Body Weight 105 lb Results Test Acquired Date Facility Test Result H/L Range Note Laboratory test finding 12/21/2020 [facility] Outpatient T esting (Registration) [address] [place] [address] [phone] Ionized Calcium 4.6 mg/dL Normal 4.5-5.3 Total 25(Oh) Vitamin D 28.1 NG/ML Low 30.0-100.0 Vitamin A, Retinol Level 42.2 g/dL Normal 20.1-62.0 1 Vitamin E Level 12/21/2020 [facility] Outpatient Testi ng (Registration) [address] [place] [address] [phone] Vitamin E(Alpha Tocopherol) 11.9 mg/L Normal 7.0- 25.1 2 Vitamin E(Gamma Tocopherol) 0.1 mg/L Low 0.5-5.5 3 Laboratory test finding 12/21/2020 [facility] Outpatient T esting (Registration) [address] [place] [address] [phone] Selenium Level Blood 486 ug/L High 100-340 4 Copper Plasma 132 g/dL Normal 80-158 5 Zinc Plasma 81 g/dL Normal 44-115 6 1 Reference intervals for severiano min A determined from [facility] internal studies. Individuals with vitamin A less than 20 ug/dL are considered vitamin A deficient and those with serum concentrations less than 10 ug/dL are considered severely deficient. . This test was developed and its performance characteristics determined by [employer]. It has not been cleared or approved by the Food and Drug Administration. 2 This test was developed and its performance characteristics determined by [employer] [facility] It has not been cleared or approved by the Food and Drug Administration. 3 This test was developed and its performance characteristics determined by [employer] It has not been cleared or approved by the Food and Drug Administration. Reference intervals for alpha and gamma-tocopherol determined from National Health and Nutrition Examination Survey, 6089-3769. Individuals with alpha-tocopherol levels less than 5.0 mg/L are considered vitamin E deficient. 4 Results confirmed on dilution. This test was developed and its performance characteristics determined by [facility]. It has not been cleared or approved by the Food and Drug Administration. Detection Limit = 10 Performed at: [address] [id number] Outreach Representative: Boris Black MD, Phone: [phone] This test was developed and its performance characteristics determined by [employer]. It has not been cleared or approved by the Food and Drug Administration. Detection Limit = 5 6 This test was developed and its performance characteristics determined by [employer]. It has not been cleared or approved by the Food and Drug Administration. Detection Limit = 5 Procedures Date Code Description Status 12/07/2020 53940920 Mammogram Completed 11/28/2020 59033 Office/Outpatient Established Lo w MDM 20-29 Min Completed 10/24/2020 90210 Office/Outpatient Established Lo w MDM 20-29 Min Completed 09/25/2020 69467 Office/Outpatient Established Lo w MDM 20-29 Min Completed Medical Devices Description No Information Available Encounters Type Date Location Provider Dx Diagnosis Office Visit 11/28/2020 8:00a [facility] DAMIEN Mccall F41.1 Generalized anxiety disorder E55.9 Vitamin D deficiency, unspec ified Z98.84 Bariatric surgery status Z79.899 Other custodial (current) dr stephen lieberman Office Visit 10/24/2020 8:00a [facility] Eri Kuhn D.O. 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 stephen lieberman Z87.891 Personal history of nicotine dependence Z88.0 Allergy status to penicillin Z88.1 Allergy status to other anti biotic agents Z68.37 Body mass index [BMI] 37.0-3 7.9, adult Office Visit 09/25/2020 8:15a [facility] DAMIEN Mccall F41.1 Generalized anxiety disorder G47.33 Obstructive sleep apnea (filemon lt) (pediatric) Assessments Date Code Description Provider 11/28/2020 F41.1 Generalized anxiety disorder DAMIEN Velasquez 11/28/2020 E55.9 Vitamin D deficiency, unspecifie d DAMIEN Mccall 11/28/2020 Z98.84 Bariatric surgery status DAMIEN Mccall 11/28/2020 Z79.899 Other custodial (current) drug t herapy DAMIEN Mccall 10/24/2020 F41.1 Generalized anxiety disorder Lety Kuhn, D.O. 10/24/2020 G47.33 Obstructive sleep apnea (adult) (pediatric) Eri Griffith, D.O. 10/24/2020 Z98.84 Bariatric surgery status Eri Hyde, D.O. 10/24/2020 E55.9 Vitamin D deficiency, unspecifie d Eri Brooksber, D.O. 10/24/2020 E66.9 Obesity, unspecified Eri Pickett no-Nacho, D.O. 10/24/2020 Z79.899 Other custodial (current) drug t herapy Eri Brooksber, D.O. 10/24/2020 Z87.891 Personal history of nicotine dep endence Eri Kuhn, D.O. 10/24/2020 Z88.0 Allergy status to penicillin Lety Nash-Nacho, D.O. 10/24/2020 Z88.1 Allergy status to other antibiot ic agents Eri Kuhn, D.O. 10/24/2020 Z68.37 Body mass index [BMI] 37.0-37.9, adult Eri Kuhn, D.O. 09/25/2020 F41.1 Generalized anxiety disorder DAMIEN Velasquez 09/25/2020 G47.33 Obstructive sleep apnea (adult) (pediatric) DAMIEN Mccall Plan of Treatment Future Appointment(s):* 01/23/2021 8:00 am - DAMIEN Mccall at [facility] Functional Status Description No Information Available Mental Status Description No Information Available Referrals Description No Information Available
--- OUTSIDE RECORDS SUMMARY | 2021-01-26 09:09 | CCD ---
Author Author [facility] Organization [facility] Address Unknown Phone Unavailable Care Team Providers Care Cloud Consultant Name Role Phone Srini Ni Unavailable PROBLEMS Type Condition ICD9-CM Code [id number] Code Onset Dates Condition S tatus W/U Status Risk SNOMED Code Notes Problem Melanocytic nevi of face D22.30 Active confirmed 729089239 Problem Melanocytic nevi of left lower limb, including hip D22.72 Active confirmed 907042100 Problem Melanocytic nevi of right lower limb, including hip D22.71 Active confirmed 511558303 Problem Nevus of neck D22.4 Active confirmed 917081 00 Problem Excessive menses N92.0 Active confirmed 266 851616 Problem 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 Active confirmed 2384 42722 Problem Melanocytic nevi of left upper limb, including shoulder D22.62 Active confirmed 965061476 Problem Melanocytic nevi of right upper limb, including shoulder D22.61 Active confirmed 879444306 Problem Melanocytic nevi of trunk D22.5 Active confirmed 974137799 Problem Compound nevus of buttock D22.5 Active confirmed 47144283 ALLERGIES Allergen (clinical drug ingredient) Drug/Non Drug Allergy do cumented on EMR Reaction Allergy Type Onset Date Status NSAIDS due to ITP Non Drug Allergy Active azithromycin Zithromax(ND Code:[address]-07) Rash Drug Allerg y Active PCN ITP Non Drug Allergy Active doxycycline Doxycycline(ND Code:[address]-38) Rash Drug Aller gy Active ENCOUNTERS from 1980 to 2021-01-11 Encounter Location Date Provider Diagnosis [facility] [address] [place] [address] [place] [address] Dec, Srini Ni IMMUNIZATIONS No Information SOCIAL HISTORY Tobacco Use: Social History Observation Description Date Details (start date - stop date) Current Smoker Sex Assigned At : Social History Observation Description Sex Assigned At Unknown Language: Question Answer Notes Languages spoken: Trinidadian Sexual Hx: Question Answer Notes Had sex in the last 12 months (vaginal, oral, or anal)? Yes Have you ever had an STD? No with Men only Use protection? Yes How often? All of the time Alcohol Screening: Question Answer Notes Did you have a drink containing alcohol in the past year? Ye s Points 1 Interpretation Negative How often did you have six or more drinks on one occas ion in the past year? Never (0 points) How many drinks did you have on a typica l day when you were drinking in the past year? 1 or 2 (0 points) How often did you have a drink containing alcohol in t he past year? Monthly or less (1 point) Tobacco Use: Question Answer Notes Are you a: current smoker over 7 years cigaret sebastian, cigar off and on currently Are you interested in quitting? Not ready to quit REASON FOR REFERRAL No Information VITAL SIGNS No information MEDICATIONS Medication SIG (Take, Route, Frequency, Duration) Notes Start Da te End Date Status Fish Oil 1000 mg 1 tablet Orally once a day Not-Taking Vitamin E Complete - as directed Orally Active Ursodiol 250 MG 1 tablet with food Orally Twice a day for 30 day(s) Not-Taking Caltrate 600 1500 (600 Ca) MG as directed Orally Active Betamethasone Dipropionate Aug 0.05 % 1 application to affected area Externally BID to areas on body with GA type rash (not for face, groin, armpits) Dec, Active Omeprazole 10 MG 1 capsule 30 minutes before morning meal Orally Once a day for 30 day(s) Not-Taking Flonase 50 MCG/DOSE 2 sprays in each nostril Nasally qhs for 15 day(s) PRN Jun, Active Multivitamins otc 1 tablet Orally once a day Active Multivitamin Adult - as directed Orally Not-Taking Bariatric Multivitamins/Iron - as directed Orally Not-Taking Claritin 10 mg 1 tablet Orally Once a day Not-Taking Vitamin D 1000 UNIT 1 tab(s) p.o. Once a day for 30 day(s) Not-Taking Effexor XR 75 MG 1 capsule with food Orally Once a day for 30 day(s) Active Biotin 300 MCG 1 tablet Orally Once a day Active Sprintec 28 0.25-35 MG-MCG 1 tablet Orally Once a day at same time each day for 84 days Apr, Not-Taking Iron (Ferrous Sulfate) 142 (45 Fe) MG 1 tablet Orally Once a day Active PriLOSEC OTC 20 MG 1 tablet Orally Once a day for 30 day(s) Not-Taking Liliya-D 24 Hour 180-240 MG 1 tablet Orally Once a day for 30 day(s) Active Vitamin D 50 MCG (2000 UT) 1 capsule Orally Once a day for 30 day(s) Active Proventil HFA 108 (90 Base) MCG/ACT 2 puffs Inhalation as needed Not-Taking PROCEDURES No Information RESULTS No Results REASON FOR VISIT 01/26/21 SURG AUTH MEDICAL (GENERAL) HISTORY Type Description Date Medical History ITP, 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6, spontaneously re covered in 1 yr, 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 Medical History Chronic hypertension Medical History Gestational diabetic Medical History bariatric surgery Surgical History bariatric surgery 10/2018 Surgical History 2013 Surgical History 2016 Hospitalization History bariatric surgery 10/2018 Hospitalization History Childbirth Goals Section No Information Health Concerns No Information MEDICAL EQUIPMENT No Information MENTAL STATUS No Information FUNCTIONAL STATUS No Information ASSESSMENTS No Information PLAN OF TREATMENT Next Appt Details Provider Name:Srini Ni, 2021-01-15 11:45:00 AM, [address] [place], [place] [id number], [place], [address], Provider Name:Srini Ni 2021-01-26 11:15:00 AM, [address] [place] [address], [place], [address], Provider Name:Srini Ni 2021-02-09 03:45:00 PM, [address] [place], [place] [address], [place], [address], Provider Name:Robyn Doan, 08:15:00 AM, [address] [place] [address] , [place], [place], [facility] [phone] Insurance Providers Payer Name Payer Address Payer Phone Insured Name Patient Relati onship to Insured Coverage Start Date Coverage End Date BCBS OF [facility] [phone] [place] [id number] LINDA ALFONSO self
--- OUTSIDE RECORDS SUMMARY | 2021-01-26 09:09 | CCD ---
Continuity of Care Document (CCD) Created on: 12/27/2020 Marilee Hernandez External Reference #: [id number] : [id number] Sex: Female Author Author Marilee LEE DO Organization Unknown Address [address] [facility], [facility] [place] [address] Phone [phone] Care Team Providers Care Ssrs Report Developer Name Role Phone Eri Kuhn D.O. AUTM [...] by mouth daily Unknown Flonase Sensimist 27 .5mcg/[place] Suspension 2 sprays per nostril twice daily [...] CPT Code Status Date Vaccine Lot # [id number] Given 01/09/2017 Influenza Virus Split 3 Yrs And Above For Intramuscular Use 18660 Given 12/27/2016 Tetanus, Diphthe allison Toxoids/Acellular Pertussis Vaccine 7 Or > [id number] Given 09/29/2013 Tetanus, Diphthe allison Toxoids/Acellular Pertussis Vaccine 7 Or > Vital Signs Date Vital Result Comment 12/07/2020 10:25am Body Temperature 97.9 F 04/17/2020 1:32pm BP Systolic 116 mmHg BP Diastolic 76 mmHg Heart Rate 76 /min O2 % BldC Oximetry 99 % Body Temperature 97.4 F Height 61 inches 5'1" Weight 203.00 lb BMI (Body Mass Index) 38.4 kg/m2 [place] Body Weight 105 lb Weight 92.081 kg BSA (Body Surface Area) 1.90 m2 Results Description No Information Available Procedures Date Code Description Status 12/21/2020 56740 Office/Outpatient Established SF MDM 10-19 Min Completed 12/07/2020 06326 Office/Outpatient New Low MDM 30 -44 Minutes Completed Medical Devices Description No Information Available Encounters Type Date Location Provider Dx Diagnosis Office Visit 12/21/2020 9:00a [facility] Felisa Lee DO M25.532 Pain in left wrist Office Visit 12/07/2020 10:30a [facility] Felisa Lee DO S66.012A Strain long [...] Treatment Future Appointment(s):* 04/17/2021 3:30 pm - Lili Colon ANP at [facility] 12/21/2020 - Farhat Lee DO* M25.532 Pain in left wrist* Comments:* Follow-up as needed. Functional Status Description No Information Available Mental Status Description No Information Available Referrals Description No Information Available
--- OUTSIDE RECORDS SUMMARY | 2021-01-26 09:09 | CCD ---
Author Author [facility] Organization [facility] Address Unknown Phone Unavailable Care Team Providers Care Law Professor Name Role Phone Srini Ni Unavailable PROBLEMS Type Condition ICD9-CM Code [id number] Code Onset Dates Condition S tatus W/U Status Risk SNOMED Code Notes Problem Melanocytic nevi of face D22.30 Active confirmed 238445656 Problem Melanocytic nevi of left lower limb, including hip D22.72 Active confirmed 635657736 Problem Melanocytic nevi of right lower limb, including hip D22.71 Active confirmed 952826257 Problem Nevus of neck D22.4 Active confirmed 310390 00 Problem Excessive menses N92.0 Active confirmed 266 661495 Problem 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 Active confirmed 2380 09279 Problem Melanocytic nevi of left upper limb, including shoulder D22.62 Active confirmed 433625060 Problem Melanocytic nevi of right upper limb, including shoulder D22.61 Active confirmed 850595799 Problem Melanocytic nevi of trunk D22.5 Active confirmed 716178125 Problem Compound nevus of buttock D22.5 Active confirmed 84637877 ALLERGIES Allergen (clinical drug ingredient) Drug/Non Drug Allergy do cumented on EMR Reaction Allergy Type Onset Date Status NSAIDS due to ITP Non Drug Allergy Active azithromycin Zithromax(ND Code:[address]-75) Rash Drug Allerg y Active PCN ITP Non Drug Allergy Active doxycycline Doxycycline(ND Code:[address]-21) Rash Drug Aller gy Active ENCOUNTERS from 1980 to 2021-01-09 Encounter Location Date Provider Diagnosis [facility] [address] [place] [address] [place] [address] Dec, Srini Ni IMMUNIZATIONS No Information SOCIAL HISTORY Tobacco Use: Social History Observation Description Date Details (start date - stop date) Current Smoker Sex Assigned At : Social History Observation Description Sex Assigned At Unknown Language: Question Answer Notes Languages spoken: [place] Sexual Hx: Question Answer Notes Had sex [...] Information RESULTS No Results REASON FOR VISIT Ultrasound results MEDICAL (GENERAL) HISTORY Type Description Date Medical History ITP, 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6, spontaneously re covered in 1 yr, 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 Medical History Chronic hypertension Medical History Gestational diabetic Medical History bariatric surgery Surgical History bariatric surgery 10/2018 Surgical History 2013 Surgical History 2017 Hospitalization History bariatric surgery 10/2018 Hospitalization History Childbirth Goals Section No Information Health Concerns No Information MEDICAL EQUIPMENT No Information MENTAL STATUS No Information FUNCTIONAL STATUS No Information ASSESSMENTS No Information PLAN OF TREATMENT Next Appt Details Provider Name:Robyn Doan, 08:15:00 AM, [address] [place] [address], , [place], [address], Insurance Providers Payer Name Payer Address Payer Phone Insured Name Patient Relati onship to Insured Coverage Start Date Coverage End Date BCBS OF [facility] [phone] [facility] [id number] LINDA ALFONSO
--- OUTSIDE RECORDS SUMMARY | 2021-01-26 09:09 | CCD | Continuity of Care Document ---
Author Author Marilee SHAH Organization Unknown Address [address] [place] [address] [place] [address] Phone [phone] Care Team Providers Care Network Technology Instructor Name Role Phone Eri Kuhn DO AUTM [employer] AUTM [phone] Problems Description No Information Available Social History Type Date Description Comments Sex Unknown ETOH Use Occasionally consumes alcohol Tobacco Use Start: Unknown End: Unknown Patient is a former smoker quit 2012 Smoking Status Reviewed: 01/25/20 Patient is a former smoker qu it 2013 Allergies, Adverse Reactions, Alerts Active Allergies Criticality Reaction | Severity Comments Date Penicillins Unable to assess criticality Blood diseas e 12/08/2012 Zithromax Unable to assess criticality 07/13/2015 Medications Active Medications SIG Qnty Indications Ordering Provide r Date Flonase 50mcg/Act Suspension 1 spray per nostril bid/prn 1units Unknown Cetirizine HCL 10mg Tablets 1 po qd 30tabs Unknown Advil Cold & Sinus Liqui-Gels 30-200mg Capsules prn Unknown Unknown Ibuprofen 200mg Capsules 1 as needed Unknown Fish Oil + D3 Unknown Vitamin D3 Unknown Immunizations Description No Information Available Vital Signs Date Vital Result Comment 01/25/2020 9:17am BP Systolic 112 mmHg BP Diastolic 75 mmHg Heart Rate 52 /min Respiratory Rate 14 /min O2 % BldC Oximetry 99 % Weight 200.00 lb Height 61 inches 5'1" BMI (Body Mass Index) 37.8 kg/m2 Pain Level 2 01/08/2016 8:17am BP Systolic 116 mmHg BP Diastolic 74 mmHg Heart Rate 74 /min O2 % BldC Oximetry 97 % Body Temperature 98.6 F Weight 310.00 lb Height 61 inches 5'1" BMI (Body Mass Index) 58.6 kg/m2 Pain Level 4 Results Description No Information Available Procedures Description No Information Available Medical Devices Description No Information Available Encounters Description No Information Available Assessments Date Code Description Provider 12/17/2020 Z20.828 Contact with and (sinha spected) exposure to other viral communicable diseases DAMIEN Flores Plan of Treatment No Information Available Functional Status Description No Information Available Mental Status Description No Information Available Referrals Description No Information Available
--- OUTSIDE RECORDS SUMMARY | 2021-01-26 09:09 | CCD ---
Author Author [facility] Organization [facility] Address Unknown Phone Unavailable Care Team Providers Care Traffic I Manager Name Role Phone Srini Ni Unavailable PROBLEMS Type Condition ICD9-CM Code [id number] Code Onset Dates Condition S tatus W/U Status Risk SNOMED Code Notes Problem Melanocytic nevi of face D22.30 Active confirmed [id number] Problem Melanocytic nevi of left lower limb, including hip D22.72 Active confirmed 619985242 Problem Melanocytic nevi of right lower limb, including hip D22.71 Active confirmed 236690774 Problem Nevus of neck D22.4 Active confirmed 736939 00 Problem Excessive menses N92.0 Active confirmed 266 613835 Problem 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 Active confirmed 2388 22936 Problem Melanocytic nevi of left upper limb, including shoulder D22.62 Active confirmed 610614237 Problem Melanocytic nevi of right upper limb, including shoulder D22.61 Active confirmed 712123950 Problem Melanocytic nevi of trunk D22.5 Active confirmed 674215007 Problem Compound nevus of buttock D22.5 Active confirmed 65282677 ALLERGIES Allergen (clinical drug ingredient) Drug/Non Drug Allergy do cumented on EMR Reaction Allergy Type Onset Date Status Tolmetin NSAIDs due to ITP Drug Allergy Active azithromycin Zithromax(NDC Code:[address]-59) Rash Drug Allerg y Active PCN ITP Non Drug Allergy Active doxycycline Doxycycline(ND Code:[address]-10) Rash Drug Aller gy Active ENCOUNTERS from 1980 to 2021-01-21 Encounter Location Date Provider Diagnosis [facility] [address] [facility] [phone] [place] [address] Jan, Srini Ni Excessive menstruati on N92.0 IMMUNIZATIONS No Information SOCIAL HISTORY Tobacco Use: Social History Observation Description Date Details (start date - stop date) Former Smoker Sex Assigned At : Social History Observation Description Sex Assigned At Unknown Language: Question Answer Notes Languages spoken: Bangladeshi Sexual Hx: Question Answer Notes Had sex in the last 12 months (vaginal, oral, or anal)? Yes Have you ever had an STD? No with Men only Use protection? Yes How often? All of the time Alcohol Screening: Question Answer Notes Did you have a drink containing alcohol in the past year? Ye s Points 2 Interpretation Negative How often did you have six or more drinks on one occas ion in the past year? Never (0 points) How many drinks did you have on a typica l day when you were drinking in the past year? 1 or 2 (0 points) How often did you have a drink containing alcohol in t he past year? Two to four times a month (2 points) Tobacco Use: Question Answer Notes Are you a: former smoker How long has it been since you last smoked? 3-6 months REASON FOR REFERRAL No Information VITAL SIGNS Weight 206.8 lbs Jan, Height 61 in Jan, BMI 39.07 kg/m2 Jan, Blood pressure systolic 124 mm Hg Jan, Blood pressure diastolic 74 mm Hg Jan, MEDICATIONS Medication SIG (Take, Route, Frequency, Duration) Notes Start Da te End Date Status Biotin 300 MCG 1 tablet Orally Once a day Active Sprintec 28 0.25-35 MG-MCG 1 tablet Orally Once a day at same time each day for 84 days Apr, Not-Taking Betamethasone Dipropionate Aug 0.05 % 1 application to affected area Externally BID to areas on body with GA type rash (not for face, groin, armpits) Dec, Active Claritin 10 mg 1 tablet Orally Once a day Not-Taking Iron (Ferrous Sulfate) 142 (45 Fe) MG 1 tablet Orally Once a day Active Multivitamin Adult - as directed Orally Not-Taking Vitamin E Complete - as directed Orally Active PriLOSEC OTC 20 MG 1 tablet Orally Once a day for 30 day(s) Not-Taking Ursodiol 250 MG 1 tablet with food Orally Twice a day for 30 day(s) Not-Taking Proventil HFA 108 (90 Base) MCG/ACT 2 puffs Inhalation as needed Not-Taking Vitamin C 1000 MG 1 tablet Orally Once a day Active Vitamin D 1000 UNIT 1 tab(s) p.o. Once a day for 30 day(s) Not-Taking Bariatric Multivitamins/Iron - as directed Orally Not-Taking Caltrate 600 1500 (600 Ca) MG as directed Orally Active Flonase 50 MCG/DOSE 2 sprays in each nostril Nasally qhs for 15 day(s) PRN Jun, Active Omeprazole 10 MG 1 capsule 30 minutes before morning meal Orally Once a day for 30 day(s) Not-Taking Multivitamins otc 1 tablet Orally once a day Active Liliya-D 24 Hour 180-240 MG 1 tablet Orally Once a day for 30 day(s) Active Fish Oil 1000 mg 1 tablet Orally once a day Not-Taking Effexor XR 75 MG 1 capsule with food Orally Once a day for 30 day(s) Active Vitamin D 50 MCG (2000 UT) 1 capsule Orally Once a day for 30 day(s) Active PROCEDURES No Information RESULTS No Results REASON FOR VISIT PRE OP SURG 01/26/21 MEDICAL (GENERAL) HISTORY Type Description Date Medical [...] No Information FUNCTIONAL STATUS No Information ASSESSMENTS Encounter Date Diagnosis Assessment Notes Treatment Notes Treatm ent Clinical Notes Jan, Excessive menstruation (ICD-10 - N92.0) PLAN OF TREATMENT Next Appt Details Provider Name:Srini Ni 2021-01-26 11:15:00 AM, [address] [place] [address] , [place], [address], Provider Name:Srini Ni 2021-02-09 03:45:00 PM, [address] [place] [address] , [place], [address], Provider Name:Robyn Doan 08:15:00 AM, [facility], , [place], [address], Insurance Providers Payer Name Payer Address Payer Phone Insured Name Patient Relati onship to Insured Coverage Start Date Coverage End Date BCBS OF [facility] [phone] [place] [id number] LINDA ALFONSO self
--- OUTSIDE RECORDS SUMMARY | 2021-01-26 09:09 | CCD | Continuity of Care Document ---
Author Author Marilee KUHN Organization Unknown Address [address] [place] [address] Phone [phone] Care Team Providers Care Dinkey Engine Mechanic Name Role Phone Eri Kuhn D.O. AUTM [phone] Problems Active Problems Provider Date Adult health [...] Kuhn D.O. 11/28 Vitamin C W/Vitamin E [id number] Capsules Ashwin MadrigalOAnt 06/01/[address] 1 by mouth every day 90caps R10.10 Ashwin Madrigal.O. 06/01 Vitamin D (Ergocalciferol) 1.25mg (04039 Ut) Capsules 1 capsule weekly for 12 [...] CPT Code Status Date Vaccine Lot # [id number] Given 03/31/2019 Pneumococcal Con jugate Vaccine 13 Valent For Intramuscular Use [id number] U-Flu Given 02/09/2015 Influenza,Unspecified Vital Signs Date Vital Result Comment 11/28/2020 8:10am BP Systolic 110 mmHg BP Diastolic 64 mmHg Height 61.2 inches 5'1.20" Weight 204.00 lb BMI (Body Mass Index) 38.3 kg/m2 Heart Rate 62 /min Respiratory Rate 14 /min Body Temperature 98.1 F O2 % BldC Oximetry 98 % [place] Body Weight 105 lb 10/24/2020 8:01am BP Systolic 118 mmHg BP Diastolic 72 mmHg Height 61.2 inches 5'1.20" Weight 198.38 lb BMI (Body Mass Index) 37.2 kg/m2 Heart Rate 75 /min Respiratory Rate 18 /min Body Temperature 98.0 F O2 % BldC Oximetry 99 % [place] Body Weight 105 lb Results Test Acquired Date Facility Test Result H/L Range Note Laboratory test finding 12/21/2020 [facility] Outpatient T esting (Registration) [address] [place] [address] [phone] Ionized Calcium 4.6 mg/dL Normal 4.5-5.3 Procedures Date Code Description Status 12/07/2020 [id number] Mammogram Completed 11/28/2020 97760 Office/Outpatient Established Lo w MDM 20-29 Min Completed 10/24/2020 86912 Office/Outpatient Established Lo w MDM 20-29 Min Completed 09/25/2020 10611 Office/Outpatient Established Lo w MDM 20-29 Min Completed Medical Devices Description No Information Available Encounters Type Date Location Provider Dx Diagnosis Office Visit 11/28/2020 8:00a Family [facility] DAMIEN Mccall F41.1 Generalized anxiety disorder E55.9 Vitamin D deficiency, unspec ified Z98.84 Bariatric surgery status Z79.899 Other detention (current) dr stephen lieberman Office Visit 10/24/2020 8:00a [facility] Eri Kuhn D.O. 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) dr stephen lieberman Z87.891 Personal history of nicotine dependence Z88.0 Allergy status to penicillin Z88.1 Allergy status to other anti biotic agents Z68.37 Body mass index [BMI] 37.0-3 7.9, adult Office Visit 09/25/2020 8:15a Family [facility] DAMIEN Mccall F41.1 Generalized anxiety disorder G47.33 Obstructive sleep apnea (filemon lt) (pediatric) Assessments Date Code Description Provider 11/28/2020 F41.1 Generalized anxiety disorder DAMIEN Velasquez 11/28/2020 E55.9 Vitamin D deficiency, unspecifie d DAMIEN Mccall 11/28/2020 Z98.84 Bariatric surgery status DAMIEN Mccall 11/28/2020 Z79.899 Other detention (current) drug t herapy DAMIEN Mccall 10/24/2020 F41.1 Generalized anxiety disorder Lety Kuhn, D.O. 10/24/2020 G47.33 Obstructive sleep apnea (adult) (pediatric) Eri Griffith, D.O. 10/24/2020 Z98.84 Bariatric surgery status Eri Hyde, D.O. 10/24/2020 E55.9 Vitamin D deficiency, unspecifie d Eri Kuhn, D.O. 10/24/2020 E66.9 Obesity, unspecified Eri Pickett no-Nacho, D.O. 10/24/2020 Z79.899 Other detention (current) drug t herapy Eri Kuhn, D.O. 10/24/2020 Z87.891 Personal history of nicotine [...] 01/23/2021 8:00 am - DAMIEN Mccall at [facility] Functional Status Description No Information Available Mental Status Description No Information Available Referrals Description No Information Available
--- OUTSIDE RECORDS SUMMARY | 2021-01-26 09:09 | CCD | Continuity of Care Document ---
Author Author Marilee KUHN Organization Unknown Address [address] [place] [address] Phone [phone] Care Team Providers Care Schedule Clerk Name Role Phone Eri Kuhn D.O. AUTM [...] Kuhn D.O. 11/28 Vitamin C W/Vitamin E [id number] Capsules Ashwin MadrigalOAnt 06/01/[address] 1 by mouth every day 90caps R10.10 Ashwin Madrigal.O. 06/01 Vitamin D (Ergocalciferol) 1.25mg (62684 Ut) Capsules 1 capsule weekly for 12 [...] CPT Code Status Date Vaccine Lot # [id number] Given 03/31/2019 Pneumococcal Con jugate Vaccine 13 Valent For Intramuscular Use [id number] U-Flu Given 02/09/2015 Influenza,Unspecified Vital Signs Date Vital Result Comment 11/28/2020 8:10am BP Systolic 110 mmHg BP Diastolic 64 mmHg Height 61.2 inches 5'1.20" Weight 204.00 lb BMI (Body Mass Index) 38.3 kg/m2 Heart Rate 62 /min Respiratory Rate 14 /min Body Temperature 98.1 F O2 % BldC Oximetry 98 % [place] Body Weight 105 lb 10/24/2020 8:01am BP Systolic 118 mmHg BP Diastolic 72 mmHg Height 61.2 inches 5'1.20" Weight 198.38 lb BMI (Body Mass Index) 37.2 kg/m2 Heart Rate 75 /min Respiratory Rate 18 /min Body Temperature 98.0 F O2 % BldC Oximetry 99 % [place] Body Weight 105 lb Results Test Acquired Date Facility Test Result H/L Range Note Laboratory test finding 12/21/2020 [facility] Outpatient T esting (Registration) [address] [place] [address] [phone] Ionized Calcium 4.6 mg/dL Normal 4.5-5.3 Total 25(Oh) Vitamin D 28.1 NG/ML Low 30.0-100.0 Procedures Date Code Description Status 12/07/2020 [id number] Mammogram Completed 11/28/2020 98793 Office/Outpatient Established Lo w MDM 20-29 Min Completed 10/24/2020 55444 Office/Outpatient Established Lo w MDM 20-29 Min Completed 09/25/2020 51664 Office/Outpatient Established Lo w MDM 20-29 Min Completed Medical Devices Description No Information Available Encounters Type Date Location Provider Dx Diagnosis Office Visit 11/28/2020 8:00a Family [facility] DAMIEN Mccall F41.1 Generalized anxiety disorder E55.9 Vitamin D deficiency, unspec ified Z98.84 Bariatric surgery status Z79.899 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 F41.1 Generalized anxiety disorder G47.33 Obstructive sleep apnea (filemon lt) (pediatric) Z98.84 Bariatric surgery status E55.9 Vitamin D deficiency, unspec ified E66.9 Obesity, unspecified Z79.899 Other [facility] (current) dr stephen lieberman Z87.891 Personal history of nicotine dependence Z88.0 Allergy status to penicillin Z88.1 Allergy status to other anti biotic agents Z68.37 Body mass index [BMI] 37.0-3 7.9, adult Office Visit 09/25/2020 8:15a [facility] DAMIEN Mccall F41.1 Generalized anxiety disorder G47.33 Obstructive sleep apnea (filemon lt) (pediatric) Assessments Date Code Description Provider 11/28/2020 F41.1 Generalized anxiety disorder DAMIEN Velasquez 11/28/2020 E55.9 Vitamin D deficiency, unspecifie d DAMIEN Mccall 11/28/2020 Z98.84 Bariatric surgery status DAMIEN Mccall 11/28/2020 Z79.899 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 10/24/2020 G47.33 Obstructive sleep apnea (adult) (pediatric) Eri Griffith, D.O. 10/24/2020 Z98.84 Bariatric surgery status Eri Valladaresber, D.O. 10/24/2020 E55.9 Vitamin D deficiency, unspecifie d Eri Nash-Nacho, D.O. 10/24/2020 E66.9 Obesity, unspecified Eri Pickett no-Nacho, D.O. 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 10/24/2020 Z87.891 Personal history of nicotine dep endence Eri Brooksber, D.O. 10/24/2020 Z88.0 Allergy status to penicillin Lety Nash-Nacho, D.O. 10/24/2020 Z88.1 Allergy status to other antibiot ic agents Eri Kuhn, D.O. 10/24/2020 Z68.37 Body mass index [BMI] 37.0-37.9, adult Eri Brooksber, D.O. 09/25/2020 F41.1 Generalized anxiety disorder DAMIEN Velasquez 09/25/2020 G47.33 Obstructive sleep apnea (adult) (pediatric) DAMIEN Mccall Plan of Treatment Future Appointment(s):* 01/23/2021 8:00 am - DAMIEN Mccall at [facility] Functional Status Description No Information Available Mental Status Description No Information Available Referrals Description No Information Available
--- OUTSIDE RECORDS SUMMARY | 2021-01-26 09:10 | CCD | Continuity of Care Document ---
Author Author Marilee SHAH Organization Unknown Address [address] [place] [address] [place] [address] Phone [phone] Care Team Providers Care Flatbed Stitcher Name Role Phone Eri Kuhn DO AUTM [employer] AUTM [phone] Problems Description No Information Available Social History [...] Available Encounters Description No Information Available Assessments Description No Information Available Plan of Treatment No Information Available Functional Status Description No Information Available Mental Status Description No Information Available Referrals Description No Information Available
--- OUTSIDE RECORDS SUMMARY | 2021-01-26 09:10 | CCD | Summary of Care ---
Author Author [facility] Organization [facility] Address Unknown Phone Unavailable Care Team Providers Care Crew Clerk Name Role Phone Eri Kuhn PCP Reason for Visit * Reason Comments Obesity Encounter Details Care Team Description Date Type Department Cristobal Otero MD [address] [place] [id number] S/P biliopancreatic diversion with duode nal switch (Primary Dx); Dietary counseling and surveillance; Vitamin D deficiency; Iron deficiency; Postoperative malabsorption; Vitamin E deficiency; BMI 38.0-38.9,adult 11/30/2020 Telemedicine [facility] at [address] [address] Allergies Comments Active Allergy Reactions Severity Noted Date Penicillins Rash Low 11/26/2017 Azithromycin Rash Low 11/26/2017 documented as of this encounter (statuses as of 11/30/2020) Medications End Date Status Medication Sig Dispensed Refills Start Date Active fluticasone (FLONASE) 50 1 spray by 0 MCG/ACT nasal spray Nasal route daily as needed Active olopatadine (PATANOL) 0.1 Place 1 drop 0 % ophthalmic solution into both eyes Two times daily as needed Active fexofenadine (CLAY) Take 180 mg 0 180 MG tablet by mouth daily Active Ferrous Sulfate 325 (65 Take 325 mg 0 Fe) MG Oral Tablet by mouth daily with breakfast Active Vitamin E 100 UNIT Oral Take 360 0 Capsule Units by mouth Two Times Daily Active Calcium Citrate 950 MG Take 1 tablet 0 Oral Tablet (CALCITRATE) by mouth Two Times Daily Active Biotin 5000 MCG Oral Take 2 0 Capsule capsules by mouth Two Times Daily Active Betamethasone APPLY 0 04/04/202 Dipropionate Aug 0.05 % TOPICALLY TO 0 External Ointment THE AFFECTED (DIPROLENE-AF) AREAS ON BODY WITH GA TYPE RASH TWICE DAILY (NOT FOR FACE, GROIN OR ARMPITS) Active Bariatric Fusion Chew 1 tablet 0 Multi-ADEK Oral Tablet by Mouth Two Chewable (BARIATRIC times daily FUSION MULTI ADEK) with meals Bariatric advantage, tablet, nonchewable Active Venlafaxine HCl ER 37.5 Take 75 mg by 0 MG Oral Capsule Extended mouth daily 1 Release 24 Hour (EFFEXOR-XR) Active Vitamin D 50 MCG (2000 5,000 Units 0 UT) Oral Capsule Active Ascorbic Acid (VITAMIN C Take 1,000 mg 0 PO) by mouth daily Active Omeprazole 20 MG Oral Take 20 mg by 0 Capsule Delayed Release mouth every (PriLOSEC) other day documented as of this encounter (statuses as of 11/30/2020) Active Problems Problem Noted Date Vitamin D deficiency 11/30/2020 Vitamin E deficiency 11/30/2020 S/P biliopancreatic diversion with duodenal switch 0 11/02/2018 Postoperative malabsorption 11/02/2018 Asthma 10/20/2018 Morbid obesity 08/24/2018 Overview: Formatting of this note might be differ ent from the original. Added automatically from request for ernestine [email or web address] [id number] Morbid obesity due to excess calories 04/16/2018 Class 3 severe obesity due to excess calories with se rious comorbidity and 12/26/2017 body mass index (BMI) of 40.0 to 44.9 i n adult documented as of this encounter (statuses as of 11/30/2020) Resolved Problems Problem Noted Date Resolved Date DAVID (obstructive sleep apnea) 12/26/2017 05/14/19 20 Overview: Formatting of this note might be differ ent from the original. uses cpap documented as of this encounter (statuses as of 11/30/2020) Immunizations Name Administration Dates Next Due documented as of this encounter Social History Date Tobacco Use Types Packs/Day Years Used Quit: 04/14/2013 Former Smoker Cigarettes Smokeless Tobacco: Never Used Comments Alcohol Use Standard Drinks/Week occasionally, once a mn -4-5 drinks hard seltzer when pt does drink Yes 0 (1 standard drink = 0.6 o z pure alcohol) Alcohol Habits Answer Date Recorded How often do you have a drink containing alcohol? Never 06/09/2018 How many drinks containing alcohol do you have on No t asked a typical day when you are drinking? How often do you have six or more drinks on one Not asked occasion? Sex Assigned at Date Recorded Not on file documented as of this encounter Last Filed Vital Signs Reading Time Taken Comments Vital Sign - - Blood Pressure - - Pulse - - Temperature - - Respiratory Rate - - Oxygen Saturation - - Inhaled Oxygen Concentration 93 kg (205 lb) 11/30/2020 1:12 PM EDT Weight 154.9 cm (5' 1") 11/30/2020 1:12 PM EDT Height 38.73 11/30/2020 1:12 PM EDT Body Mass Index documented in this encounter Progress Notes * Cristobal Otero MD - 11/30/2020 1:30 PM EDT BARIATRIC SURGERY FOLLOW-UP CLINIC NOTE CHIEF COMPLAINT: 6 month follow-up HISTORY OF PRESENT ILLNESS: The patient is a 40 y.o. female who is status post L aparoscopic BPD-DS by Dr. Landers in September 2018. She was last seen in clinic via telemed by Dr. Lutz on 05/19/2020 and presents today for six month follow-up. Sh h as lost about 100 lbs since her BPD-DS. She has maintained her weight around 20 0-205 lbs. She reports that she still focuses on protein intake goals of >90g per day with protein shakes and powders. She reports loose stools after every meal that are worse particularly during her menstrual cycle. Also worse with c ertain lactose products. She takes Omeprazole 40mg every other day. She takes it mainly to help with water brash and thinks it makes her bowel movements not as frequent and loose. She had previously stopped it for about a year after complet ing the 6 month course after surgery but restarted it and thinks it has helped. She has been taking her MVI as well as vitamin supplementation as instructed ronald montano. Last RD visit 05/19/2019 (CG) Today's weight: 205 lbs Last weight: 193 lbs Pre-operative weight: 295 lbs Multivitamin/Labs: bariatric fusion ADEK, Calcium, Vit D 5000units daily, Vit E, iron -05/2020 labs reviewed - CBC (Hgb 11.6), CMP nl, Iron studies nl, Ferritin 8, Fo late nl, Vit B12 nl, Vit D 25.7 Patient Active Problem List Diagnosis Class 3 severe obesity due to excess calories with serious comorbidity an d body mass index (BMI) of 40.0 to 44.9 in adult Morbid obesity due to excess calories Morbid obesity Asthma S/P biliopancreatic diversion with duodenal switch Postoperative malabsorption Current Outpatient Medications: Bariatric Fusion Multi-ADEK Oral Tablet Chewable (BARIATRIC FUSION MULTI ADEK), Chew 1 tablet by Mouth Two times daily with meals Bariatric advantage, t ablet, nonchewable, Disp: , Rfl: Betamethasone Dipropionate Aug 0.05 % External Ointment (DIPROLENE-AF), APPLY TOPICALLY TO THE AFFECTED AREAS ON BODY WITH GA TYPE RASH TWICE DAILY (NOT FOR FACE, GROIN OR ARMPITS), Disp: , Rfl: Biotin 5000 MCG Oral Capsule, Take 1 capsule by mouth Two Times Daily, D isp: , Rfl: Calcium Citrate 950 MG Oral Tablet (CALCITRATE), Take 1 tablet by mouth Two Times Daily, Disp: , Rfl: Ferrous Sulfate 325 (65 Fe) MG Oral Tablet, Take 325 mg by mouth daily w ith breakfast, Disp: , Rfl: fexofenadine (CLAY) 180 MG tablet, Take 180 mg by mouth daily, Disp: , Rfl: fluticasone (FLONASE) 50 MCG/ACT nasal spray, 1 spray by Nasal route luis ly as needed , Disp: , Rfl: olopatadine (PATANOL) 0.1 % ophthalmic solution, Place 1 drop into both eyes Two times daily as needed , Disp: , Rfl: Vitamin E 100 UNIT Oral Capsule, Take 400 Units by mouth nightly , Disp: , Rfl: Past Medical History: Diagnosis Date Asthma Hypertension during Morbid obesity with BMI of 50.0-59.9, adult DAVID (obstructive sleep apnea) uses cpap Past Surgical History: Procedure Laterality Date SECTION 11/25,02/28 GASTROPLASTY duodenal switch 09-20-18 AL EGD TRANSORAL BIOPSY SINGLE/MULTIPLE N/A 04/01/2018 Procedure: UPPER GI ENDOSCOPY W/BX, SINGLE/MULTIPLE; Surgeon: Kayode Landers MD; Location: OR ; Service: Endoscopy; Laterality: N/A; AL ESOPHAGOGASTRODUODENOSCOPY TRANSORAL DIAGNOSTIC N/A 10/20/2018 Procedure: UPPER GI ENDOSCOPY; DX, W/WO SPECIMEN COLLECTION, BRUSHING/WASHING ( SEP PROC); Surgeon: Kayode Landers MD; Location: [facility]; Service: General; Laterality: N/A; TUBAL LIGATION Family History Problem Relation Age of Onset Obesity Mother Heart disease Mother Hypertension Mother Diabetes Father Hypertension Father Hyperlipidemia Father Social History Socioeconomic History Marital status: Spouse name: Not on file Number of children: Not on file Years of education: Not on file Highest education level: Not on file Occupational History Not on file Tobacco Use Smoking status: Former Smoker Types: Cigarettes Quit date: 04/14/2013 Years since quittin.6 Smokeless tobacco: Never Used Vaping Use Vaping Use: Never used Substance and Sexual Activity Alcohol use: No Drug use: No Sexual activity: Not on file Comment: BTL - 2017 Other Topics Concern Not on file Social History Narrative Not on file Social Determinants of Health Financial Resource Strain: Difficulty of Paying Living Expenses: Food Insecurity: Worried About Running Out of Food in the Last Year: Ran Out of Food in the Last Year: Transportation Needs: Lack of Transportation (Medical): Lack of Transportation (Non-Medical): Physical Activity: Days of Exercise per Week: Minutes of Exercise per Session: Stress: Feeling of Stress : Social Connections: Frequency of Communication with Friends and Family: Frequency of Social Gatherings with Friends and Family: Attends Gnosticist Services: Active Member of Clubs or Organizations: Attends Club or Organization Meetings: Marital Status: Intimate Partner Violence: Fear of Current or Ex-Partner: Emotionally Abused: Physically Abused: Sexually Abused: REVIEW OF SYSTEMS: [Option: Pertinent items are noted in HPI. ] GENERAL: Denies fevers, chills or malaise. SKIN: Denies new rashes, sores. HEAD: Denies new headache, migraine. EYES: Denies any vision change, diploplia. RESPIRATORY: Denies cough, sputum, hemoptysis. CARDIAC: Denies chest pain, palpitations, dyspnea, orthopnea. GI: Denies nausea, vomiting, vomiting of blood, change in bowel habits. URINARY: Denies polyuria, dysuria, nocturia, hesitancy. MS: Denies new back pain or other joint pain. PHYSICAL EXAMINATION: Visit Vitals Ht 1.549 m (5' 1") Wt 93 kg (205 lb) BMI 38.73 kg/m Body surface area is 2 meters squared. Last Recorded Weight 11/30/20 93 kg (205 lb) 05/19/20 87.5 kg (193 lb) 08/17/19 92.7 kg (204 lb 6.4 oz) Unable to perform complete physical exam due to telehealth visit ASSESSMENT: The patient is doing fairly well. They are presenting today for 6 month follow-u p after Lap BPD-DS in September [address] Landers. She has lost 100 lbs since her s urgery and has been able to maintain her weight around 200 lbs over the past 6 m ont. She continues to work on consuming >90g protein every day and >60-70oz water. She reports loose stools after every meal that has been stable since after her surgery. She has been following closely with her PCP with her labs including Vit D, B12, iron studies. -Bariatric nutrition labs ordered externally today - specifically Vit A, Vit D, Vit E, selenium, copper, zinc, ionized calcium. Pt aware to complete prior to RD and PCP appt (02/01) so they can be reviewed. Recommend to repeat every 6-12 mo nths. -RD referral for visit in 1 month to review labs and vitamin supplementation. -Follow-up in 6 months in bariatric clinic with DC Patient is encouraged to call the clinic with any questions or concerns. Patient demonstrates understanding, is amenable to the outlined plan, and there were no barriers to education today. This is a telephonic visit which was performed without the use of video technolo gy due to patient inability to connect with video. The patient was informed of t he risks including security breach, technological failure, inability to perform a physical exam which could delay or prevent an accurate diagnosis, and potentia l complications from treatment decisions rendered over a telephonic platform. Th e patient understands and consented to the use of a telephonic visit/telephone c all. Time spent on the telephonic visit today: 30 minutes CRISTOBAL OTERO MD Bariatric and Minimally Invasive Surgery [facility] [address] [place] [address], Physician's Office [facility], [address] [place], [place] [address] Pager: [phone] documented in this encounter Nursing Notes * Shea Cartagena, MORENO - 11/30/2020 1:30 PM EDT LV with Dr Lutz 05/19/20 CHIEF COMPLAINT:Follow-up s/p duodenal switch in October 2018. Diarrhea PLAN: The current diet and exercise regimens were reviewed in clinic, including protei n and average fluid intake. Recommendations for continued safe weight loss, health and nutrition were discussed in detail. The patient was encouraged to con tinue diversifying the diet and to maintain and expand the exercise program. Spe cifically: 1.Add PA daily 2.Continue MVI and calcium. 3.PCP for labs. 4. Increase protein intake 5. Add vitamin D3 5k daily ---- 11/30/2020: Marilee Hernandez Wt Readings from Last 3 Encounters: 11/30/20 93 kg (205 lb) 05/19/20 87.5 kg (193 lb) 08/17/19 92.7 kg (204 lb 6.4 oz) Vitals: 11/30/20 1312 Weight: 93 kg (205 lb) Height: 1.549 m (5' 1") Ongoing diarrhea since DS- last week was bad - r/t getting menstrual cycle.- hormonal related Pt had labs at pcp, I will look into [facility] and scan if I can locate. Unfortunate ly I can not locate labs in [facility] documented in this encounter Plan of Treatment Order Schedule Name Type Priority Associated Diag noses 1 Occurrences starting 11/30/2020 until 06/02/2021 Selenium Plasma Lab Routine S/P biliopancr eatic diversion with duodenal switch Dietary counseling and surveillance Vitamin D deficiency Iron deficiency Postoperative malabsorption Vitamin E deficiency BMI 38.0-38.9,adult 1 Occurrences starting 11/30/2020 until 06/02/2021 Copper, plasma Lab Routine S/P biliopancre atic diversion with duodenal switch Dietary counseling and surveillance Vitamin D deficiency Iron deficiency Postoperative malabsorption Vitamin E deficiency BMI 38.0-38.9,adult 1 Occurrences starting 11/30/2020 until 06/02/2021 Vitamin E Level Lab Routine S/P biliopancr eatic diversion with duodenal switch Dietary counseling and surveillance Vitamin D deficiency Iron deficiency Postoperative malabsorption Vitamin E deficiency BMI 38.0-38.9,adult 1 Occurrences starting 11/30/2020 until 06/02/2021 Vitamin A Level Lab Routine S/P biliopancr eatic diversion with duodenal switch Dietary counseling and surveillance Vitamin D deficiency Iron deficiency Postoperative malabsorption Vitamin E deficiency BMI 38.0-38.9,adult 1 Occurrences starting 11/30/2020 until 06/02/2021 Zinc, plasma Lab Routine S/P biliopancre atic diversion with duodenal switch Dietary counseling and surveillance Vitamin D deficiency Iron deficiency Postoperative malabsorption Vitamin E deficiency BMI 38.0-38.9,adult 1 Occurrences starting 11/30/2020 until 06/02/2021 Calcium, ionized Lab Routine S/P biliopanc reatic diversion with duodenal switch Dietary counseling and surveillance Vitamin D deficiency Iron deficiency Postoperative malabsorption Vitamin E deficiency BMI 38.0-38.9,adult 1 Occurrences starting 11/30/2020 until 06/02/2021 Vitamin D 25 Hydroxy, Lab Routine S/P bili opancreatic Total diversion with duodenal switch Dietary counseling and surveillance Vitamin D deficiency Health Maintenance Due Date Last Done Comments Pneumococcal Vaccine: 65+ 02/16/1986 Years (1 of 2 - PPSV23) Pneumococcal Vaccine: 02/16/1986 Pediatrics (0 to 5 Years) and At-Risk Patients (6 to 64 Years) (1 of 2 - PPSV23) DTaP,Tdap,and Td Vaccines 02/16/1987 (1 - Tdap) HIV Screening 02/16/1993 Cervical Cancer Screening 02/16/2001 5 years Varicella Vaccines (1 of 12/11/2013 2 - 2-dose childhood series) Influenza Vaccine 01/12/2021 MMR Vaccines Completed 11/13/2013 COVID-19 Vaccine Completed 05/08/2020, 04/10/2020 HIB Vaccines Aged Out No longer eligible based on patient's age to complete this topic Hepatitis A Vaccines Aged Out No longer eligibl e based on patient's age to complete this topic Hepatitis B Vaccines Aged Out No longer eligibl e based on patient's age to complete this topic IPV Vaccines Aged Out No longer eligible based on patient's age to complete this topic documented as of this encounter Implants Device Identifier Shelf Expiration Date Model / Serial / L ot Implanted Type Area Manufactur er 05/14/2021 [id number] / / [id number] Stapler Seam[employer] [place] 60 - GORE, [id number] JACKELIN Do Implanted: Qty: 4 on 10/20/2018 by + Kayode Landers MD at [facility] 05/14/2021 [id number] / / [id number] Stapler Se[employer] [place] 60 - N/A: Abdomen GORE, [id number] JACKELIN Do Implanted: Qty: 2 on 10/20/2018 by + Kayode Landers MD at [facility] documented as of this encounter Results Not on filedocumented in this encounter Visit Diagnoses Diagnosis S/P biliopancreatic diversion with duod enal switch - Primary Dietary counseling and surveillance Dietary surveillance and counseling Vitamin D deficiency Unspecified vitamin D deficiency Iron deficiency Iron deficiency anemia, unspecified Postoperative malabsorption Other and unspecified postsurgical anmol bsorption Vitamin E deficiency Deficiency of other vitamins BMI 38.0-38.9,adult Body Mass Index 38.0-38.9, adult documented in this encounter
--- OUTSIDE RECORDS SUMMARY | 2021-01-26 09:10 | CCD | Continuity of Care Document ---
Author Author Marilee LEE DO Organization Unknown Address [address] [facility] [place], [place], [facility] [place] [place] [address] Phone [phone] Care Team Providers Care Panel Machine Setter Name Role Phone Eri Kuhn D.O. AUTM [phone] AUTM Unavailable Problems Active Problems Provider Date Obstructive sleep apnea syndrome CARRILLO Parrish Onset: 04/17/2020 Social History Type Date Description Comments Sex Unknown ETOH Use Denies alcohol use Recreational Drug Use Denies Drug Use Tobacco [...] by mouth daily Unknown Flonase Sensimist 27 .5mcg/Elkins Suspension 2 sprays per nostril twice daily [...] CPT Code Status Date Vaccine Lot # [id number] Given 01/09/2017 Influenza Virus Split 3 Yrs And Above For Intramuscular Use [id number] Given 12/27/2016 Tetanus, Diphthe allison Toxoids/Acellular Pertussis Vaccine 7 Or > [id number] Given 09/29/2013 Tetanus, Diphthe allison Toxoids/Acellular Pertussis Vaccine 7 Or > Vital Signs Date Vital Result Comment 12/07/2020 10:25am Body Temperature 97.9 F 04/17/2020 1:32pm BP Systolic 116 mmHg BP Diastolic 76 mmHg Heart Rate 76 /min O2 % BldC Oximetry 99 % Body Temperature 97.4 F Height 61 inches 5'1" Weight 203.00 lb BMI (Body Mass Index) 38.4 kg/m2 [place] Body Weight 105 lb Weight 92.081 kg BSA (Body Surface Area) 1.90 m2 Results Description No Information Available Procedures Date Code Description Status 12/07/2020 [address] Office/Outpatient [facility] 30 -44 Minutes Completed Medical Devices Description No Information Available Encounters Type Date Location Provider Dx Diagnosis Office Visit 12/07/2020 10:30a [facility] Felisa Lee DO S66.012A Strain long flexor musc/fasc/tend l thm at wrs/hnd lv, init M25.532 Pain in left wrist M24.832 Oth specific joint derangeme nts of left wrist, NEC Assessments Date Code Description Provider 12/07/2020 S66.012A Strain of long flexo r muscle, fascia and tendon of left thumb at wrist and hand level, initial encounter Farhat Lee DO 12/07/2020 M25.532 Pain in left wrist Von Lee DO 12/07/2020 M24.832 Other specific joint derangements of left wrist, not elsewhere classified Farhat Lee DO Plan of Treatment Future Appointment(s):* 12/21/2020 9:00 am - Farhat Lee DO at [facility] * 04/17/2021 3:30 pm - CARRILLO Parrish at [facility] Pulmonary/Thoracic 12/07/2020 - Farhat Lee DO* S66.012A Strain of long flexor muscle, fascia and tendon of left thumb at wrist and hand level, initial encounter* Comments:* Wrist splint for immobilization. Decreased repetitive flexionFollow-up in 2 weeksTylenol for pain. Discussed topical Voltaren gel as an anti-inflammatory * M25.532 Pain in left wrist* New Xrays:* XR Wrist Complete Minimum 3 Views Left, Ordered: 12/07/20 * M24.832 Other specific joint derangements of left wrist, not elsewhere classified Functional Status Description No Information Available Mental Status Description No Information Available Referrals Description No Information Available
--- OUTSIDE RECORDS SUMMARY | 2021-01-26 09:10 | CCD ---
Author Author [facility] Organization [facility] Address Unknown Phone Unavailable Care Team Providers Care Warp Spooler Name Role Phone Garcia Coty LAWYERS Unavailable Unavailable Garcia, Coty LAWYERS Unavailable Unavailable Garcia, Coty LAWYERS Unavailable Unavailable Garcia, Coty LAWYERS Unavailable Unavailable Garcia, Coty LAWYERS Unavailable Unavailable Garcia, Coty LAWYERS Unavailable Unavailable Garcia, Coty LAWYERS Unavailable Unavailable Garcia, Coty LAWYERS Unavailable Unavailable Garcia, Coty LAWYERS Unavailable Unavailable Garcia, Coty LAWYERS Unavailable Unavailable Garcia, Coty LAWYERS Unavailable Unavailable Garcia, Coty LAWYERS Unavailable Unavailable Garcia, Coty LAWYERS Unavailable Unavailable Ana Lilia OTERO Unavailable Unavailable EUSEBIO-QUIN, ARTIE DO Unavailable Unavailable EUSEBIO-QUIN, ARTIE DO Unavailable Unavailable EUSEBIO-QUIN, ARTIE DO Unavailable Unavailable EUSEBIO-QUIN, ARTIE DO Unavailable Unavailable EUSEBIO-QUIN, ARTIE DO Unavailable Unavailable EUSEBIO-QUIN, ARTIE DO Unavailable Unavailable EUSEBIO-QUIN, ARTIE DO Unavailable Unavailable EUSEBIO-QUIN, ARTIE DO Unavailable Unavailable EUSEBIO-QUIN, ARTIE DO Unavailable Unavailable EUSEBIO-QUIN, ARTIE DO Unavailable Unavailable EUSEBIO-QUIN, ARTIE DO Unavailable Unavailable EUSEBIO-QUIN, ARTIE DO Unavailable Unavailable EUSEBIO-QUIN, ARTIE DO Unavailable Unavailable EUSEBIO-QUIN, ARTIE DO Unavailable Unavailable EUSEBIO-QUIN, ARTIE DO Unavailable Unavailable EUSEBIO-QUIN, ARTIE DO Unavailable Unavailable EUSEBIO-QUIN, ARTIE DO Unavailable Unavailable EUSEBIO-QUIN, ARTIE DO Unavailable Unavailable EUSEBIO-QUIN, ARTIE DO Unavailable Unavailable EUSEBIO-QUIN, ARTIE DO Unavailable Unavailable EUSEBIO-QUIN, ARTIE DO Unavailable Unavailable EUSEBIO-QUIN, ARTIE DO Unavailable Unavailable EUSEBIO-QUIN, ARTIE DO Unavailable Unavailable EUSEBIO-QUIN, ARTIE DO Unavailable Unavailable EUSEBOI-QUIN, ARTIE DO Unavailable Unavailable EUSEBIO-QUIN, ARTIE DO Unavailable Unavailable EUSEBIO-QUIN, ARTIE DO Unavailable Unavailable EUSEBIO-QUIN, ARTIE DO Unavailable Unavailable EUSEBIO-QUIN, ARTIE DO Unavailable Unavailable EUSEBIO-QUIN, ARTIE DO Unavailable Unavailable EUSEBIO-QUIN, ARTIE DO Unavailable Unavailable EUSEBIO-QUIN, ARTIE DO Unavailable Unavailable EUSEBIO-QUIN, ARTIE DO Unavailable Unavailable EUSEBIO-QUIN, ARTIE DO Unavailable Unavailable EUSEBIO-QUIN, ARTIE DO Unavailable Unavailable EUSEBIO-QUIN, ARTIE DO Unavailable Unavailable EUSEBIO-QUIN, ARTIE DO Unavailable Unavailable EUSEBIO-QUIN, ARTIE DO Unavailable Unavailable EUSEBIO-QUIN, ARTIE DO Unavailable Unavailable EUSEBIO-QUIN, ARTIE DO Unavailable Unavailable EUSEBIO-QUIN, ARTIE DO Unavailable Unavailable EUSEBIO-QUIN, ARTIE DO Unavailable Unavailable EUSEBIO-QUIN, ARTIE DO Unavailable Unavailable EUSEBIO-QUIN, ARTIE DO Unavailable Unavailable EUSEBIO-QUIN, ARTIE DO Unavailable Unavailable EUSEBIO-QUIN, ARTIE DO Unavailable Unavailable EUSEBIO-QUIN, ARTIE DO Unavailable Unavailable EUSEBIO-QUIN, ARTIE DO Unavailable Unavailable EUSEBIO-QUIN, ARTIE DO Unavailable Unavailable EUSEBIO-QUIN, ARTIE DO Unavailable Unavailable EUSEBIO-QUIN, ARTIE DO Unavailable Unavailable EUSEBIO-QUIN, ARTIE DO Unavailable Unavailable EUSEBIO-QUIN, ARTIE DO Unavailable Unavailable EUSEBIO-QUIN, ARTIE DO Unavailable Unavailable EUSEBIO-QUIN, ARTIE DO Unavailable Unavailable EUSEBIO-QUIN, ARTIE DO Unavailable Unavailable EUSEBIO-QUIN, ARTIE DO Unavailable Unavailable EUSEBIO-QUIN, ARTIE DO Unavailable Unavailable EUSEBIO-QUIN, ARTIE DO Unavailable Unavailable EUSEBIO-QUIN, ARTIE DO Unavailable Unavailable EUSEBIO-QUIN, ARTIE DO Unavailable Unavailable EUSEBIO-QUIN, ARTIE DO Unavailable Unavailable EUSEBIO-QUIN, ARTIE DO Unavailable Unavailable EUSEBIO-QUIN, ARTIE DO Unavailable Unavailable EUSEBIO-QUIN, ARTIE DO Unavailable Unavailable EUSEBIO-QUIN, ARTIE DO Unavailable Unavailable EUSEBIO-QUIN, ARTIE DO Unavailable Unavailable EUSEBIO-QUIN, ARTIE DO Unavailable Unavailable EUSEBIO-QUIN, ARTIE DO Unavailable Unavailable EUSEBIO-QUIN, ARTIE DO Unavailable Unavailable EUSEBIO-QUIN, ARTIE DO Unavailable Unavailable EUSEBIO-QUIN, RATIE DO Unavailable Unavailable EUSEBIO-QUIN, ARTIE DO Unavailable Unavailable EUSEBIO-QUIN, ARTIE DO Unavailable Unavailable EUSEBIO-QUIN, ARTIE DO Unavailable Unavailable EUSEBIO-QUIN, ARTIE DO Unavailable Unavailable EUSEBIO-QUIN, ARTIE DO Unavailable Unavailable EUSEBIO-QUIN, ARTIE DO Unavailable Unavailable EUSEBIO-QUIN, ARTIE DO Unavailable Unavailable EUSEBIO-QUIN, ARTIE DO Unavailable Unavailable EUSEBIO-QUIN, ARTIE DO Unavailable Unavailable EUSEBIO-QUIN, ARTIE DO Unavailable Unavailable EUSEBIO-QUIN, ARTIE DO Unavailable Unavailable EUSEBIO-QUIN, ARTIE DO Unavailable Unavailable RAÚL MCKEON MD Unavailable Unavailable RAÚL MCKEON MD Unavailable Unavailable Rabach, A Cristobal Unavailable + Rabach, A Cristobal Unavailable + Rabach, A Cristobal Unavailable + Rabach, A Cristobal Unavailable + Rabach, A Cristobal Unavailable + Rabach, A Cristobal Unavailable + Rabach, A Cristobal Unavailable + Rabach, A Cristobal Unavailable + Rabach, A Cristobal Unavailable + Rabach, A Cristobal Unavailable + Rabach, A Cristobal Unavailable + O'refugio, A Dario PA Unavailable Unavailable , A Dario PA Unavailable Unavailable , A Dario PA Unavailable Unavailable , A Dario PA Unavailable Unavailable , A Dario PA Unavailable Unavailable , A Dario PA Unavailable Unavailable , A Dario PA Unavailable Unavailable , A Dario PA Unavailable Unavailable , A Dario PA Unavailable Unavailable , A Dario PA Unavailable Unavailable , A Dario PA Unavailable Unavailable , A Dario PA Unavailable Unavailable , A Dario PA Unavailable Unavailable , A Dario PA Unavailable Unavailable , A Dario PA Unavailable Unavailable , A Dario PA Unavailable Unavailable , A Dario PA Unavailable Unavailable , A Dario PA Unavailable Unavailable , A Dario PA Unavailable Unavailable , A Dario PA Unavailable Unavailable , A Dario PA Unavailable Unavailable , A Dario PA Unavailable Unavailable , A Dario PA Unavailable Unavailable , A Dario PA Unavailable Unavailable , A Dario PA Unavailable Unavailable , A Dario PA Unavailable Unavailable , A Dario PA Unavailable Unavailable , A Dario PA Unavailable Unavailable , A Dario PA Unavailable Unavailable , A Dario PA Unavailable Unavailable , A Dario PA Unavailable Unavailable , A Dario PA Unavailable Unavailable , Ana Lilia QUEZADA Unavailable Unavailable Lutz, Stephy Unavailable Unavailable Lutz, Stephy Unavailable Unavailable Lutz, Stephy Unavailable Unavailable Lutz, Stephy Unavailable Unavailable Lutz, Stephy Unavailable Unavailable Lutz, Stephy Unavailable Unavailable Lutz, Stephy Unavailable Unavailable Lutz, Stephy Unavailable Unavailable Lutz, Stephy Unavailable Unavailable Lutz, Stephy Unavailable Unavailable Lutz, Stephy Unavailable Unavailable Lutz, Stephy Unavailable Unavailable Lutz, Stephy Unavailable Unavailable Lutz, Stephy Unavailable Unavailable Lutz, Stephy Unavailable Unavailable Lutz, Stephy Unavailable Unavailable Lutz, Stephy Unavailable Unavailable Lutz, Stephy Unavailable Unavailable Lutz, Stephy Unavailable Unavailable Lutz, Stephy Unavailable Unavailable Lutz, Stephy Unavailable Unavailable Lutz, Stephy Unavailable Unavailable Lutz, Stephy Unavailable Unavailable Lutz, Stephy Unavailable Unavailable Lutz, Stephy Unavailable Unavailable Lutz, Stephy Unavailable Unavailable Lutz, Stephy Unavailable Unavailable Lutz, Stephy Unavailable Unavailable Lutz, Stephy Unavailable Unavailable Lutz, Stephy Unavailable Unavailable Lutz, Stephy Unavailable Unavailable Lutz, Stephy Unavailable Unavailable Lutz, Stephy Unavailable Unavailable Lutz, Stephy Unavailable Unavailable Lutz, Stephy Unavailable Unavailable Lutz, Stephy Unavailable Unavailable Lutz, Stephy Unavailable Unavailable Re-disclosure Warning The records that you are about to access may contain information from federally-assisted alcohol or drug abuse programs. If such information is present, then the following federally mandated warning applies: This information has been disclosed to you from records protected by federal confidentiality rules (42 CFR part 2). The federal rules prohibit you from making any further disclosure of this information unless further disclosure is expressly permitted by the written consent of the person to whom it pertains or as otherwise permitted by 42 CFR part 2. A general authorization for the release of medical or other information is NOT sufficient for this purpose. The Federal rules restrict any use of the information to criminally investigate or prosecute any alcohol or drug abuse patient.The records that you are about to access may contain highly sensitive health information, the redisclosure of which is protected by Article 27-F of the [facility] Public Health law. If you continue you may have access to information: Regarding HIV / AIDS; Provided by facilities licensed or operated by the [facility] Office of Mental Health; or Provided by the [facility] Office for People With Developmental Disabilities. If such information is present, then the following [facility] mandated warning applies: This information has been disclosed to you from confidential records which are protected by state law. State law prohibits you from making any further disclosure of this information without the specific written consent of the person to whom it pertains, or as otherwise permitted by law. Any unauthorized further disclosure in violation of state law may result in a fine or fpc sentence or both. A general authorization for the release of medical or other information is NOT sufficient authorization for further disc losure. Family History Family Member Name Family Member Gender Family Member Status Date o f Status Description Data Source(s) Unknown Male Problem [facility] ([facility] Unknown Unknown Problem MEDENT ([facility] ) Unknown Female Problem MEDENT ([facility]) Unknown [facility] Problem [facility] ([facility] Unknown Unknown Problem [facility] ([facility]) Unknown Unknown Problem [facility] ([facility]) Unknown Unknown Problem MED[facility] ([facility]) Encounters Encounter Providers Location Date Indications Data Source(s ) ([facility] 15ESGYN) WCenter 15 min est test borer [address] [place] [address] 01/15/2021 12:00:00 AM EDT eCW1 ([facility]) Unknown [address] [facility] [address] 01/11/2021 12:00:00 AM EDT eCW1 ([facility]) Unknown [address] [facility] [address] 01/09/2021 12:00:00 AM EDT eCW1 ([facility]) Outpatient Attender: RAÚL Calderón/Peterson/Todd/ Juliet 12/21/2020 09:00:00 AM EDT MEDENT ([facility], ) Outpatient Attender: RAÚL Calderón/Peterson/Todd/ Reincandy 12/07/2020 10:30:00 AM EDT MEDENT ([facility] ([facility] 15ESGYN) WCenter 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 10/24/2020 08:00:00 AM EDT MEDENT ([facility]) Outpatient [address] [facility] [id number] 10/09/2020 12:00:00 AM EDT eCW1 ([facility]) Outpatient Attender: Dario QUEZADA [facility] 09/25/2020 08:15:00 AM EDT MEDENT ([facility]) Outpatient Attender: Dario QUEZADA [facility] 06/01/2020 07:40:00 AM EST MEDENT ([facility]) Outpatient Attender: Stephy Lutz [id number] 05/19/2020 12:00:00 AM [facility] Outpatient Attender: Dario QUEZADA [facility] 04/19/2020 02:40:00 PM EST MEDENT ([facility]) Outpatient Attender: Coty long 01/25/2020 08:50:00 AM EDT MEDENT [facility] Immunizations Vaccine Date Status Description Data Source(s) COVID-19 VACCINE Moderna 05/08/2020 12:00:00 AM EST completed [facility] Vaccine Series Complete: YESThis Data wa s Submitted to [facility] [employer]. COVID-19 VACCINE Moderna 04/10/2020 12:00:00 AM EST completed [facility] Vaccine Series Complete: NOThis Data was Submitted to [facility] [employer]. Medications Medication Brand Name Start Date Product Form Dose Route Admi nistrative Instructions Pharmacy Instructions Status Indications Reaction Description Data Source(s) No Active Medications 12/07/2020 12:00:00 AM EDT completed MEDENT ([facility] ) 24 HR venlafaxine 75 MG Extended Release Oral Capsule Venlaf axine HCL ER 11/28/2020 12:00:00 AM EDT ORAL active MEDENT ([facility]) 24 HR venlafaxine 37.5 MG Extended Relea se Oral Capsule Venlafaxine HCl ER 37.5 MG Oral Capsule Extended Release 24 Hour (EFFEXOR-XR) Venlafaxine HCl ER 37.5 MG Oral Capsule Extended Release 24 Hour (EFFEXOR-XR) 11/21/2020 12:00:00 AM EDT 75 mg Oral active Take 75 mg by mouth [facility] 24 HR venlafaxine 37.5 MG Extended Release Oral Capsule Venl afaxine HCL ER 09/25/2020 12:00:00 AM EDT ORAL completed MEDENT ([facility]) Ascorbic Acid 500 MG / Vitamin E 200 UNT Oral Capsule Vitamin C W/Vitamin E 06/01/2020 12:00:00 AM EST active MEDENT ([facility]) Omeprazole 20 MG Delayed Release Oral Capsule Omeprazole 06/01/2020 12:00:00 AM EST ORAL active MEDENT ([facility]) Ergocalciferol 43742 UNT Oral Capsule Vitamin D (Ergocalcife rol) 05/28/2020 12:00:00 AM EST active M EDENT ([facility]) Insurance Providers Payer name Policy type / Coverage type Policy ID Covered constitution party ID Covered constitution party's relationship to ruiz Policy Ruiz Plan Information [facility] Health Maintenance Organization (HMO) [id number] Self [id number] [facility] [id number] Self [id number] [facility] Health Maintenance Organization (HMO) [id number] Self [id number] [facility] Health Maintenance Organization (HMO) [id number] Self [id number] [facility] [facility] Health Maintenance Organization ([facility]) [id number] Self [id number] BCBS o Commercial [id number] Self [id number] [employer] [id number] SP [id number] [employer] [id number] SP [id number] [employer] [id number] SP [id number] [facility] U [id number] Self [id number] Commercial [id number] Self [id number] [facility] Commercial [id number] Self [id number] [facility] [address] U/W Commercial [id number] Self [id number] [facility] [id number] Self [id number] [facility] [address] U/W Commercial [id number] Self [id number] [employer] Commercial [id number] S elf [id number] [employer] Commercial [id number] S elf [id number] [facility] [id number] S elf [id number] [employer] Commercial [id number] S elf [id number] [employer] Commercial [id number] S elf [id number] [employer] Commercial [id number] S elf [id number] [employer] Medigap Part B [id number] [id number] Self [id number] [employer] PPO O [id number] S [id number] [employer] Medigap Part B [id number] 78.0 Self [id number] [employer] Medigap Part B [id number] 78.0 Self [id number] [employer] Medigap Part B [id number] 78.0 Self [id number] [employer] [id number] SP [id number] [employer] Commercial [id number] Self [employer] Commercial [id number] Self [employer] [place] 306/806 [id number] SP [id number] [employer] [place] PPO 302/307 [id number] SP [id number] [employer] [place] PPO 302/307 [id number] SP [id number] [employer] [place] PPO 302/307 [id number] SP [id number] [employer] [place] 306/806 [id number] SP [id number] SELF PAY ONLY [id number] SP [id number] [employer] [place] PPO 302/307 [id number] SP [id number] [employer] [place] 306/806 [id number] SP [id number] [employer] Medigap Part B [id number] Self [id number] [employer] Commercial [id number] Self [id number] r [facility] [id number] Self [id number] [employer] [facility] Part B [id number] [address] [id number] [facility] [id number] Self [id number] [facility] Part B [id number] [id number] [facility] [id number] [id number] Self [id number] [employer] Commercial [id number] [facility] [id number] 57.0 Self [id number] [employer] Commercial [id number] S elf [id number] Problems, Conditions, and Diagnoses Code Display Name Description Problem Type Effective Dates Data Source(s) E55.9 Vitamin D deficiency, unspecified Vitamin D defi ciency, unspecified Diagnosis 11/30/2020 08:09:29 AM [facility] Z71.3 Dietary counseling and surveillance Dietary coun seling and surveillance Diagnosis 11/30/2020 08:09:29 AM EDT [facility] N92.0 Excessive and frequent menstruation Excessive menses P raghulem 12/07/2020 12:00:00 AM EDT eCW1 ([facility]) 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 Problem 10/09/2020 12:00:00 AM EDT eCW1 ([facility]) G47.33 Obstructive sleep apnea syndrome Obstructive sle ep apnea syndrome Problem 04/17/2020 12:00:00 AM EST MEDENT [facility] Surgeries/Procedures Procedure Description Date Indications Data Source(s) OFFICE OUTPATIENT VISIT 10 MINUTES 12/21/2020 12:00:00 AM EDT MEDENT ([facility], ) OFFICE OUTPATIENT NEW 30 MINUTES 12/07/2020 12:00:00 A M EDT MEDENT ([facility]) Mammography (procedure) 12/07/2020 12:00:00 AM EDT MEDENT ([facility]) OFFICE OUTPATIENT VISIT 15 MINUTES 11/28/2020 12:00:00 AM EDT MEDENT ([facility]) OFFICE OUTPATIENT VISIT 15 MINUTES 10/24/2020 12:00:00 AM EDT MEDENT ([facility]) OFFICE OUTPATIENT VISIT 15 MINUTES 09/25/2020 12:00:00 AM EDT MEDENT ([facility]) OFFICE OUTPATIENT VISIT 25 MINUTES 06/01/2020 12:00:00 AM EST MEDENT ([facility]) Results ID Date Data Source [id number] 01/04/2021 12:00:00 AM EDT [facility] Name Value Range Interpretation Code Description Data Nery rce(s) Supporting Document(s) SARS-CoV2 Rapid Antigen Negative [facility] This lab was ordered by [facility] and reported by [facility]. ID Date Data Source [id number] 01/03/2021 12:00:00 AM EDT [facility] Name Value Range Interpretation Code Description Data Nery rce(s) Supporting Document(s) SARS-CoV2 Rapid Antigen Negative [facility] This lab was ordered by [facility] and reported by [facility]. ID Date Data Source [id number] 12/21/2020 07:54:00 AM EDT MEDENT ([facility]) Name Value Range Interpretation Code Description Data Nery rce(s) Supporting Document(s) Selenium [Mass/volume] in Blood 486 ug/L 100-340 Above high norm al [facility] ([facility]) Results confirmed on dilution. This test was developed and its performance characteristics determined by [facility]. It has not been cleared or approved by the Food and Drug Administration. Detection Limit = 10 Performed at: [facility] [address] [id number] Soundscriber Mechanic: Boris Black MD, Phone: [phone] Copper [Mass/volume] in Serum or Plasma 132 ug/dL 80-158 Normal (applies to non- numeric results) [facility] ([facility]) This test was developed and its performa nce characteristics determined by [facility] It has not been cleared or approved by the Food and Drug Administration. Detection Limit = 5 Zinc [Mass/volume] in Serum or Plasma 81 ug/dL 44-115 Normal (applies to non- numeric results) [facility] ([facility]) This test was developed and its performa nce characteristics determined by [employer]. It has not been cleared or approved by the Food and Drug Administration. Detection Limit = 5 ID Date Data Source [id number] 12/21/2020 07:54:00 AM EDT [facility] ([facility]) Name Value Range Interpretation Code Description Data Nery rce(s) Supporting Document(s) Vitamin E(Alpha Tocopherol) 11.9 mg/L 7.0-25.1 Norm al (applies to non-numeric results) [facility] ([facility]) This test was developed and its performa nce characteristics determined by [facility] It has not been cleared or approved by the Food and Drug Administration. Vitamin E(Gamma Tocopherol) 0.1 mg/L 0.5-5.5 Below low normal MEDENT ([facility]) This test was developed and its performa nce characteristics determined by [facility] It has not been cleared or approved by the Food and Drug Administration. Reference intervals for alpha and gamma-tocopherol determined from National Health and Nutrition Examination Survey, 0934-4098. Individuals with alpha-tocopherol levels less than 5.0 mg/L are considered vitamin E deficient. ID Date Data Source [id number] 12/21/2020 07:54:00 AM EDT [facility] ([facility]) Name Value Range Interpretation Code Description Data Nery rce(s) Supporting Document(s) Calcium.ionized [Mass/volume] in Serum o r Plasma by Ion-selective membrane electrode (ISE) 4.6 mg/dL 4.5-5.3 Normal (applies to non-numeric results ) [facility] ([facility]) Calcidiol [Mass/volume] in Serum or Plasma 28.1 ng/mL 30.0- 100.0 Below low normal [facility] ([facility]) Retinol [Mass/volume] in Serum or Plasma 42.2 ug/dL 20.1-62 .0 Normal (applies to non-numeric results) [facility] ([facility]) Reference intervals for vitamin A determ ined from [facility] internal studies. Individuals with vitamin A less than 20 ug/dL are considered vitamin A deficient and those with serum concentrations less than 10 ug/dL are considered severely deficient. . This test was developed and its performance characteristics determined by [facility]. It has not been cleared or approved by the Food and Drug Administration. ID Date Data Source [id number] 12/17/2020 12:00:00 AM EDT [facility] Name Value Range Interpretation Code Description Data Nery rce(s) Supporting Document(s) SARS-CoV2 Rapid Antigen Negative [facility] This lab was reported by [facility]. ID Date Data Source [id number] 11/30/2020 02:06:48 PM EDT [facility] Name Value Range Interpretation Code Description Data Nery rce(s) Supporting Document(s) Progress Note [facility] YEKVNn9zDbXUWyMy39/YLUjzUXIyv2AyRHsfGQe8OOfeIJXxT6SfAHU4tN0sCMM7BEkXTsZdFhWgQYN7 [facility] [file] h8tKy/uJYekEJfsOHRV436AlIwvk+LAWYERS+F29gbgTKfyokjUeS+WI42PVtud+sZPx9WeeymLs8esn/5gM/ oQk8gblc+A56seCX9nGzb19xpoMbp+VI3hqQ53uOb4 5kyZMfCV6bM+tO6xg5i57f1dsvwbyOzACpvY21liwXDCTV+xCYy59Do36eGZ3yjuwVfwo95gzJorI5UT +DefXjbtM42OYQ2QY8tR+HVlY8/kARFUm+64iG6ie0IpPxSaZdfbCiBg2Ph64znhvrApN27mJTGE49T1 Lz8rvhtB6roBKuX08aCJtdoLJp9tVIxw9u5GWvhqbG xLyZfd7BF3a9U35VxfMj3YxFzqVU38BEpr9oq5cZ1c4Ku6ySWuw4VuyCBh9PvaFi2XZ6SEFhkNr31KQf B/FxGJsv0rldc93dd5p0gif3Yn0XaQk/yrnvttKl9n8+3if0FhQt1hlBAQ8H/gX4pRQp2zTpq6rYAGlq zuZje5/OW3HAEAFbpxfEqrMO7NiSKIIFDYf1hsxBxd AIuY5vxLJSzzthGn+Q9cRQT6nEydIHHxaxdnHnA9tVsZG3LhiMXzKrOyxypHY4g2oFMo13J9u2nPOzFG qYWzs0OBQ1WZ93hp0xmMWohcglwfUch3wxwI8BC+/qcwZpqflTg6Rvv2wCpkB3dxuiLDCoIHGhAykB1K lFt4QwAQFEPeOctGWFw7DMyncqycoDhMf4ZgADwN37 ay1qgCB9kmBjutqLHnqDw83+YpUcyYqJv5jYjUeU3xlAFBMzWgtjnD04eL1R9PEZRkr9ZrIj8rY1uWjX 287Z+zLOLKfKKutDugQukeG9Q1+P0x4x6FvYc9T+z+SVWhUhKx33MnBwA3voPiw0uGA3YcmiUDf32lUw o58YkhBxGTuguXh4mZPRUIzJYB6AQ4FbvtdIGmc1XP WNFVYo2MmN+fZ2gjbjF1t9K3Gx3TSeCTWcnLv844SNFP8gPqH7r1yZLSH+1Ybmxw44akHXvL/h42XT1l N8EJ1Ww3VuiRIolAzlec4P0cP2eCsI+3v1bdUv+OpP5g2z7uxtTkYr4ArbFqeb+8k82G1Qii912u+continuous improvement coach [file] AgICAgICAgICAgICAgICAgICAgICAgICAgICAgICAgICAgICAgICAgICAgICAgICAgICAgICAgICAgIC AgICAgICAgICAgICAgICAgICAgICAgICAgICAgICAgICAgDQogICAgICAgICAgICAgICAgICAgICAgIC AgICAgICAgICAgICAgICAgICAgICAgICAgICAgICAg ICAgICAgICAgICAgICAgICAgICAgICAgICAgICAgICAgICAgICAgICAgICAgDQogICAgICAgICAgICAg ICAgICAgICAgICAgICAgICAgICAgICAgICAgICAgICAgICAgICAgICAgICAgICAgICAgICAgICAgICAg ICAgICAgICAgICAgICAgICAgICAgICAgICAgDQogIC AgICAgICAgICAgICAgICAgICAgICAgICAgICAgICAgICAgICAgICAgICAgICAgICAgICAgICAgICAgIC AgICAgICAgICAgICAgICAgICAgICAgICAgICAgICAgICAgICAgDQogICAgICAgICAgICAgICAgICAgIC AgICAgICAgICAgICAgICAgICAgICAgICAgICAgICAg ICAgICAgICAgICAgICAgICAgICAgICAgICAgICAgICAgICAgICAgICAgICAgICAgDQogICAgICAgICAg ICAgICAgICAgICAgICAgICAgICAgICAgICAgICAgICAgICAgICAgICAgICAgICAgICAgICAgICAgICAg ICAgICAgICAgICAgICAgICAgICAgICAgICAgICAgDQ ogICAgICAgICAgICAgICAgICAgICAgICAgICAgICAgICAgICAgICAgICAgICAgICAgICAgICAgICAgIC AgICAgICAgICAgICAgICAgICAgICAgICAgICAgICAgICAgICAgICAgDQogICAgICAgICAgICAgICAgIC AgICAgICAgICAgICAgICAgICAgICAgICAgICAgICAg ICAgICAgICAgICAgICAgICAgICAgICAgICAgICAgICAgICAgICAgICAgICAgICAgICAgDQogICAgICAg ICAgICAgICAgICAgICAgICAgICAgICAgICAgICAgICAgICAgICAgICAgICAgICAgICAgICAgICAgICAg ICAgICAgICAgICAgICAgICAgICAgICAgICAgICAgIC AgDQogICAgICAgICAgICAgICAgICAgICAgICAgICAgICAgICAgICAgICAgICAgICAgICAgICAgICAgIC PmAHUeISDbLXZnTHZePUTjJWSeYKYiFCYcPRNnGTGgOOKyYIFlMBKvGJGrUHc2T5ixWBXkBXEqVU3sJW d3Jz8+UXuURcUhUJW1xpJckB6AXB3zf8IgIMtaYPVo n5TsTAh0AV7WPBQsGWktQS6JPReixy6VMDCfLGBneSRWe9ijBsPnOXQ5BRAmUfykKV6THTCdQ8lpjaTe YJJiUFQTXVgaMCBYGTusTFFBDMEmOEMxTdFpBzPaTVBbZG2SGNZgY893krNeIY4ZZl7BKfUrJR2qij2B SmBxAZNbDmoUEqu7FHvrLY0MkCIgkNUqTSOuHOIARl WxF0pax9BjMvJmDDNCZXryXE1Fx6CltGFhNJr+Ih9GCW7ca3ScTOgoWUYdJB9izf0QTWoZNiRlX3CevJ yhAYWho0rjYHKpEG8gdWHbSWF8AGasjFRxphRTFNImZdJhoMfmFEDbWIVwFC7xZO1tFSFoCSWrZtSaQI URLJ3ABQKsXUOwpVFsETZmOGDQBX1CNHrfUIM8LQQd rhBtwXXoBHtdDJ7JXOOudtAtMoUkJKXQTUw+Go0TIY7xu1NdNNjrGwUiYM6ufw4NCMpBBzBwY9A5aUFb V8W3KAoqLk9QJBIcRNVjSjutPHVFKJesDD9HCH3zluF9DI4UdSQnEQHfTWWxpWQaJIi9L50dhTXkSQoz AR0MYQX+Matilda+Kw0KLWWzORYpSCNwIiVxAMHSKiLgL2 DqX3LMx1IfS8OyCF28zElexzQtJMhwLR9LVJ8jUUZcJPLUZJ7ElYCfeY6ftyTaFPVoTGWYBkHcQ37rlN AdXHBtRHV5WXHnYn1OTDWyA9FnkpIrqPgwnpRpYYZcUPEKAC5KWTgxdrHryUUejHafPT31wEkgVB1GIs 3RTsKmWL5ate2QwRJoIc0LHBUzIi4HTZNfDIUtMEAp DTR0MBTkXuPyGGrfHVDgTGYrCWL9QFPaLZSgKQ1SFmWbLOBjZCFtGFVcJMQuRNZhdw7EJYSmJER2Kwsr RSTtOZXlKQBcKOlwRYDkVTGrFVE9YMEdMHXxBJ0UXoSkIXZlYAL8NtEdYGTpRKKyxz8YMBYrOMYaIlk3 NRSlEKAtFZWxAIumXQPyMEC9TQH7TPFvAXEjGS3PHo GlBPYlZNv0YwgiWINlBNDaww3XHCYlWCDtNII0YzDoKTEgEFEcDXkvBPHeOQYpFwWpXLMyEEFzWG4DUx XyIGMwTMB9YoPvMWMuAMHkbg2XAEFpQJUuNgMgNiPfXUApJNLvCEuvOBPfMAU5HGq0IJMbXOGlNR1KDj NkFBBfQYG1NHSbUEKxFHZqvx6TFZKqMMMjLjT4OXFf YZUgWXHpLFzpRLItFZF4ELKvTLDkEHQfXQ8YKhLyTGRtEPN8EBKdZMHuTQNzwf2YOYKgFCRgSyolMcUj XCPgWKJnEPyjGUDiNNB7JHO5IRSpRXEqUE5MOdTpATDtJHrfNTMyRCObWOVpxu7IICWoXKT3YSG5SmIi IDCrBCMfGFzaHWYbDFZ0AwnzCTCfSEUuIL0JDyLjBH CoYAy4AKXgLLPbYIElyr5OJJTuQIB7WIqmBoJgSLAfAPThMEojJCVyLZZvIQWwHAQjWTWhYR5KOvMaFT ZtKMA9AWxdMFYoTBTvyq3WQVSgSEU4FRa7SICeTICnOHFlVIqkOLEsXZLcBGnpQKAhKMJjNQ6YOhMxWI AxLOM0ORPqGNMdOYFmbm5PIVVeTTZ0FPR6LNIfNQXj RPVpEXqbGEEtZJR6CCE2SLIaQXAuPM2HTvQkYAJdDDCiHyHbFEWxAOGbhd1AoGLmlNnjrb2MDYkDOt9W pUzpBSTcKAjsBv6mnNDaWhZrYVEYOo0ZplTkIRNjGLTWHXnhFESfGGYzPmWkMHRhLmf1TdLsNqAaUjQa TDO4FKwtBzOiXSExFjA5NMD6BQEfUFL6Ufk6QBJcPI RhJZQ2RSXuJYK4KCV7FlO+TU5dCCk+We3Lr9RtonL7sfQuARv6SHBhIZ9OTTPMF2QINt== ID Date Data Source [id number] 10/26/2020 12:00:00 AM EDT [facility] Name Value Range Interpretation Code Description Data Nery rce(s) Supporting Document(s) SARS-CoV2 Rapid Antigen Negative [facility] This lab was ordered by [facility] and reported by [facility]. ID Date Data Source [id number] 10/25/2020 12:00:00 AM EDT [facility] Name Value Range Interpretation Code Description Data Nery rce(s) Supporting Document(s) SARS-CoV2 Rapid Antigen Negative [facility] This lab was ordered by [facility] and reported by [facility]. ID Date Data Source [id number] 10/03/2020 12:00:00 AM EDT [facility] Name Value Range Interpretation Code Description Data Nery rce(s) Supporting Document(s) SARS-CoV2 Rapid Antigen Negative [facility] This lab was ordered by [facility] and reported by [facility]. ID Date Data Source [id number] 09/21/2020 12:00:00 AM EDT [facility] Name Value Range Interpretation Code Description Data Nery rce(s) Supporting Document(s) SARS coronavirus 2 Ag Negative [facility] This lab was ordered by [facility] and reported by [facility]. ID Date Data Source [id number] 09/21/2020 12:00:00 AM EDT [facility] Name Value Range Interpretation Code Description Data Nery rce(s) Supporting Document(s) SARS-CoV2 Rapid Antigen Negative [facility] This lab was ordered by [facility] and reported by [facility]. ID Date Data Source [id number] 09/20/2020 12:00:00 AM EDT [facility] Name Value Range Interpretation Code Description Data Nery rce(s) Supporting Document(s) SARS-CoV2 Rapid Antigen Negative [facility] This lab was ordered by [facility] and reported by [facility]. ID Date Data Source [id number] 09/18/2020 12:00:00 AM EDT [facility] Name Value Range Interpretation Code Description Data Nery rce(s) Supporting Document(s) SARS-CoV2 Rapid Antigen Negative [facility] This lab was ordered by [facility] and reported by [facility]. ID Date Data Source [id number] 08/30/2020 12:00:00 AM EDT [facility] Name Value Range Interpretation Code Description Data Nery rce(s) Supporting Document(s) SARS-CoV2 Rapid Antigen Negative [facility] This lab was ordered by [facility] and reported by [facility]. ID Date Data Source [id number] 08/29/2020 12:00:00 AM EDT [facility] Name Value Range Interpretation Code Description Data Nery rce(s) Supporting Document(s) SARS-CoV2 Rapid Antigen Negative [facility] This lab was ordered by [facility] and reported by [facility]. ID Date Data Source [id number] 05/25/2020 08:16:00 AM EST [facility]) Name Value Range Interpretation Code Description Data Nery rce(s) Supporting Document(s) Pyridoxine [Mass/volume] in Serum or Plasma 22.9 ug/L 2.0- 32.8 Normal (applies to non-numeric results) [facility] ([facility]) Performed at: [address] [id number] Mechanic: Boris Black MD, Phone: [phone] ID Date Data Source [id number] 05/25/2020 08:16:00 AM EST [facility] ([facility]) Name Value Range Interpretation Code Description Data Nery rce(s) Supporting Document(s) Vitamin E(Alpha Tocopherol) 12.9 mg/L 7.0-25.1 Norm al (applies to non-numeric results) [facility] ([facility]) Vitamin E(Gamma Tocopherol) 0.2 mg/L 0.5-5.5 Below low normal [facility] ([facility]) Reference intervals for alpha and gamma- tocopherol determined from National Health and Nutrition Examination Survey, 4068-4649. Individuals with alpha-tocopherol levels less than 5.0 mg/L are considered vitamin E deficient. ID Date Data Source [id number] 05/25/2020 08:16:00 AM EST [facility] ([facility]) Name Value Range Interpretation Code Description Data Nery rce(s) Supporting Document(s) Calcidiol [Mass/volume] in Serum or Plasma 25.7 ng/mL 30.0- 100.0 Below low normal [facility] ([facility]) ID Date Data Source [id number] 05/25/2020 08:16:00 AM EST [facility] ([facility]) Name Value Range Interpretation Code Description Data Nery rce(s) Supporting Document(s) Vitamin B12 Level Laboratory test result Normal (applies to non-numeric results) [facility]) VITAMIN B12 NORMAL RANGE NORMAL 247 - 911 PG/ML INDETERMINATE 211 - 246 PG/ML DEFICIENT LESS THAN 211 PG/ML Folate Laboratory test result Normal (applies to non-n umeric results) [facility] ([facility]) FOLATE NORMAL RANGE NORMAL GREATER THAN 5.4 NG/ML INDETERMINATE 3.4-5.4 NG/ML DEFICIENT LESS THAN 3.4 NG/ML ID Date Data Source [id number] 05/25/2020 08:16:00 AM EST [facility] ([facility]) Name Value Range Interpretation Code Description Data Nery rce(s) Supporting Document(s) Iron (Fe) 50 ug/dL 50-170 Normal (applies to non-numeric resul ts) [facility] ([facility]) Percent Saturation 13.2 % 13.2-45.0 Normal (applies to non-numer ic results) [facility] ([facility]) Total Iron Binding Capacity 379 ug/dL 250-450 Norm al (applies to non-numeric results) [facility] ([facility]) ID Date Data Source [id number] 05/25/2020 08:16:00 AM EST [facility] ([facility]) Name Value Range Interpretation Code Description Data Nery rce(s) Supporting Document(s) Ferritin [Mass/volume] in Serum or Plasma 7 ng/mL 8-252 Below low normal [facility] ([facility]) ID Date Data Source [id number] 05/25/2020 08:16:00 AM EST [facility] ([facility]) Name Value Range Interpretation Code Description Data Nery rce(s) Supporting Document(s) Glucose, Fasting 80 mg/dL 70-100 Normal (applies to non-numeric results) [facility] ([facility]) Blood Urea Nitrogen 10 mg/dL 7-18 Normal (applies to non-nume kat results) [facility] ([facility]) Creatinine For GFR 0.60 mg/dL 0.55-1.30 Normal (applies to non -numeric results) [facility] ([facility]) Glomerular Filtration Rate Laboratory test result Normal (applies to non- numeric results) [facility] ([facility]) <content>Units are mL/min/1.73 m2</content>
<content></content>
<content>Chronic Kidney Disease Staging per NKF:</content>
<content></content>
<content>Stage I & II GFR >=60 Normal to Mildly Decreased</content>
<content>Stage III GFR 30- 59 Moderately Decreased</content>
<content>Stage IV GFR 15-29 Severely Decreased</content>
<content>Stage V GFR <15 Very Little GFR Left</content>
<content>ESRD GFR <15 on BUSINESS TRANSFORMATION CONSULTANT</content>
<content></content> Chloride Level 105 meq/L 98-107 Normal (applies to non-numeric r esults) [facility] ([facility]) Potassium Serum 4.3 meq/L 3.5-5.1 Normal (applies to non-numeric results) [facility] ([facility]) Sodium Level 141 meq/L 136-145 Normal (applies to non-numeric res ults) [facility] ([facility]) Anion Gap 6 meq/L 8-16 Below low normal [facility] ( [facility]) Carbon Dioxide Level 30 meq/L 21-32 Normal (applies to non-num mojgan results) [facility] ([facility]) Ast/Sgot 11 U/L 7-37 Normal (applies to non-numeric resul ts) [facility] ([facility]) Calcium Level 8.7 mg/dL 8.5-10.1 Normal (applies to non-numeric re sults) [facility] ([facility]) Alt/SGPT 28 U/L 12-78 Normal (applies to non-numeric resul ts) [facility] ([facility]) Alkaline Phosphatase 104 U/L 45-117 Normal (applies to non-num mojgan results) [facility] ([facility]) Albumin 3.7 GM/DL 3.2-5.2 Normal (applies to non-numeric resul ts) [facility] ([facility]) Bilirubin,Total 0.3 mg/dL 0.2-1.0 Normal (applies to non-numeric results) [facility] ([facility]) Total Protein 6.8 GM/DL 6.4-8.2 Normal (applies to non-numeric re sults) [facility] ([facility]) Albumin/Globulin Ratio 1.2 1.2-2.2 Normal (applies to non-n umeric results) [facility] ([facility]) ID Date Data Source [id number] 05/25/2020 08:16:00 AM EST [facility] ([facility]) Name Value Range Interpretation Code Description Data Nery rce(s) Supporting Document(s) White Blood Count 6.1 10 4.0-10.0 Normal (applies to non-numeri c results) [facility] ([facility]) Red Blood Count 4.00 10 4.00-5.40 Normal (applies to non-numeric results) [facility] ([facility]) Hemoglobin 11.6 g/dL 12.0-15.5 Below low normal [facility] ( [facility]) Mean Corpuscular Volume 90.3 fl 80.0-96.0 Normal ( applies to non-numeric results) [facility] ([facility]) Hematocrit 36.1 % 36.0-47.0 Normal (applies to non-numeric resul ts) [facility] ([facility]) Mean Corpuscular HGB Conc 32.1 g/dL 32.0-36.5 Normal (applies to non-numeric results) [facility] ([facility]) Mean Corpuscular Hemoglobin 29.0 pg 27.0-33.0 Norm al (applies to non-numeric results) [facility] ([facility]) Red Cell Distribution Width 12.0 % 11.5-14.5 Norm al (applies to non-numeric results) [facility] ([facility]) Neutrophils % 63.0 % 36.0-66.0 Normal (applies to non-numeric re sults) [facility] ([facility]) Platelet Count, Automated 328 10 150-450 Normal (applies to non-numeric results) [facility] ([facility]) Cole % 7.3 % 0.0-5.0 Above high normal [facility] ([facility]) Lymph % 25.4 % 24.0-44.0 Normal (applies to non-numeric resul ts) [facility] ([facility]) Eos % 2.8 % 0.0-3.0 Normal (applies to non-numeric resul ts) [facility] ([facility]) Baso % 1.0 % 0.0-1.0 Normal (applies to non-numeric resul ts) [facility] ([facility]) Immature Granulocyte % 0.5 % 0-3.0 Normal (applies to non-n umeric results) [facility] ([facility]) Neutrophils # 3.9 10 1.5-8.5 Normal (applies to non-numeric re sults) [facility] ([facility]) Nucleated Red Blood Cell % 0.0 % 0-0 Normal (applies to n on-numeric results) [facility] ([facility]) Lymph # 1.6 10 1.5-5.0 Normal (applies to non-numeric resul ts) [facility] ([facility]) Eos # 0.2 10 0.0-0.5 Normal (applies to non-numeric resul ts) [facility] ([facility]) Cole # 0.5 10 0.0-0.8 Normal (applies to non-numeric resul ts) [facility] ([facility]) Baso # 0.1 10 0.0-0.2 Normal (applies to non-numeric resul ts) [facility] ([facility]) ID Date Data Source [id number] 05/19/2020 09:33:31 AM EST [facility] Name Value Range Interpretation Code Description Data Nery rce(s) Supporting Document(s) Progress Note [facility] NAAFGi3qHkOGXdXv09/SVUksEHNxm7DeCEfiLQi3QBnlPOWeO6NaMQK2yJ9sSAK5VDlIYzQmLkWcAaQ5 [facility] [file] ICAgICAgICAgICAgICAgICAgICAgICAgICAgICAgIC AgICAgICAgICAgICAgICAgICAgICAgICAgDQogICAgICAgICAgICAgICAgICAgICAgICAgICAgICAgIC AgICAgICAgICAgICAgICAgICAgICAgICAgICAgICAgICAgICAgICAgICAgICAgICAgICAgICAgICAgIC AgICAgICAgDQogICAgICAgICAgICAgICAgICAgICAg ICAgICAgICAgICAgICAgICAgICAgICAgICAgICAgICAgICAgICAgICAgICAgICAgICAgICAgICAgICAg ICAgICAgICAgICAgICAgICAgDQogICAgICAgICAgICAgICAgICAgICAgICAgICAgICAgICAgICAgICAg ICAgICAgICAgICAgICAgICAgICAgICAgICAgICAgIC AgICAgICAgICAgICAgICAgICAgICAgICAgICAgDQogICAgICAgICAgICAgICAgICAgICAgICAgICAgIC AgICAgICAgICAgICAgICAgICAgICAgICAgICAgICAgICAgICAgICAgICAgICAgICAgICAgICAgICAgIC AgICAgICAgICAgDQogICAgICAgICAgICAgICAgICAg ICAgICAgICAgICAgICAgICAgICAgICAgICAgICAgICAgICAgICAgICAgICAgICAgICAgICAgICAgICAg ICAgICAgICAgICAgICAgICAgICAgDQogICAgICAgICAgICAgICAgICAgICAgICAgICAgICAgICAgICAg ICAgICAgICAgICAgICAgICAgICAgICAgICAgICAgIC AgICAgICAgICAgICAgICAgICAgICAgICAgICAgICAgDQogICAgICAgICAgICAgICAgICAgICAgICAgIC AgICAgICAgICAgICAgICAgICAgICAgICAgICAgICAgICAgICAgICAgICAgICAgICAgICAgICAgICAgIC AgICAgICAgICAgICAgDQogICAgICAgICAgICAgICAg ICAgICAgICAgICAgICAgICAgICAgICAgICAgICAgICAgICAgICAgICAgICAgICAgICAgICAgICAgICAg ICAgICAgICAgICAgICAgICAgICAgICAgDQogICAgICAgICAgICAgICAgICAgICAgICAgICAgICAgICAg ICAgICAgICAgICAgICAgICAgICAgICAgICAgICAgIC PmIBWaGLKoRUMfATHoZNEjYLFgZLHlWKDnEQByWTKrVRYzULk1R4wuTUWhTMAnWL8hQTk3Cw4+DQoNCm KfXNO4vxTucQ3HXP4da9McQBbkGFNuy2MoLAs2AR3BSYMeSIchHK6FNVgbas9MERZpMDAwiMBYx9vhPm GlSNS3YDKsFhifLO9DQCHcJ3izfbSeXWWbMDGLDFht TFOUZJtnPCMCUVXzPYCaInKxBcYoEXBcOC7OPKYcM758lcKeAA4FBr4CYyYwAD7xax9KFwCvZVNaDbkL Sto2AIgkWD7YgXWwpAJnLSBaXGAUVpIrU6pga7NzCuWsLDYVEKbiYB5Pf1MkbOPdGWz+Xe6TUJ0ii9Ex DPoaSSZaLA2rfk1DZOjRUtKrP2XayVpdSEEev2koAJ MsPZ3brGXhSBJ8SEAlBGNeMGXQCYGieS8zMN5JQYL9ZMDtLR3pZGEsVRJ1JpEoBKDSJY3WKVOcNSYgfT FjRSZaDZYYVT4RWLprWDY7XNHqnyQqdTCqVXyqPH3FHXUiiuNlTxYjXFPUCOp+Uh9HMD7tm2QzGGfjWs UgCG6rez2LWBmELhQhZ4W0lFCtA2O1FDwrCt6BKCGp OUIuNfdbSDGQLTaoDD9SKL0plvA2XL8EwAKrXLXfJMNikSBkGCq6G99ezMIzQNouLN1TKVP+Matilda+Pg0K VYLzRHTjVRGzQcKaSOFXBaFrZ4LbW3QFz0LmB6IdIB20gDeeinWhVSajQO8CDX3fZWLpHCVQLS3TkKUs bN2dfuRlBMDhNLVWJwDsO97xsQBoUDWlJIH9PORxQt 4RAMWaN7MfeaPrbGorqeSoECHyFUKQGA6DJThpknEmnGBayKymEF82eRspNT7EGv2QGpRjXI5obh2XsD BmWz1JXGVxHg5KRQHnPWVgWDVpTUF0DWHnRuLvXBeoZOPgUIDoKJN0BJQoPGLbVF9HCmOxGQLlRLN5LU VmVUCsFSHccw0KUKZyCDV0DfQ0LUYtYVCkNARhIPss JJRePWTiGBY7MOTsRVBqXG4EDiXoGHKfPHP5LPQwDIPwFLKqff1QLQVuOKVvRHZwRHZmHRRxODTdWIfo YSEhQGQ4KMSbETDfPAGwCT3VYyJsVRJaPTb2YwKiFHPvQZMvze5JIKZrMIUvZQF6CSEeOVYpLAPmXZpx BPDaSNTrOlpuKNXyIYZrXK7CHbXcQHUtBLEsZkHsIH NgXFJqgq2TKXEdVMZiPyE3XGNjESHgMQUtMIuqTFGxHFSgATO9EWWvHGKtTL0BTxTpXZRcJYKxMxApMD HtJSYvxk6AHFLjTAYtZES4EyIdKGQlEAAeYEhiZNPmOXJ0RcprBECzZUSpKH7MYxTpMWLiAME9ToFtSX NjDKDnja4RHQReXPRwEtDmKrNrPBTkQCKiKBurLPQc NLW7XaY7SRLdHJLlJQ9DEeCmLLRuRRC5GCMbEIObHFHfsg8CKGYbCIX0Jfv4BbKvXZQgHAGqJFmmFTJm REL0FXJcUUHoQDZkEB7PRdPvYAFyLKr4AeLdACYsDRFbyv8YWSOsUKO6AOEkBjSjJTZcJJWkHWwjQTFa CFY9COtaQWNqZDIjHF6JCeNwVCMgOSJ7MzXpWNYwOD Udwd8ZYHPaUBA6IZpnLDLcOGMyWFDkCFohLFPlUZYzQCbvHEGnXLHlSZ7TWjCjKQJbSNEmMYgaTADyAB Njog9BDSJgCDK9Bzr3JdAwKYWxLLVfPQaiTGIbFWAuCCW9JBChUBBoLM8EVhDmWDVhYFN4WOKjXJQsHC Xvrn1TzIQdhIctko0FOEcLJx1NrMtqHAPwVFgdWq5t uISqMxUmGQFWBw5ZpsGhKXOaMNROPHfsDSPnEWygYLU4W0EpHXFqCDDfWyT4TMBkOEY2JzSjKxNoZcf2 SiT2L8YlCKJ5E8I7XXNsOyK9GSDySPLiYwQyCBEcOYIjUCo+LO2iHBn+Uf5Sh1JxlaS9ijNoJKq2UxMs [id number]== ID Date Data Source [id number] 04/25/2020 02:20:00 PM EST [facility]) Name Value Range Interpretation Code Description Data Nery rce(s) Supporting Document(s) Coronavirus 2019 Nasopharygeal Laboratory test result [facility] ([facility]) This nucleic acid amplification test was developed and its performance characteristics determined by [employer]. Nucleic acid amplification tests include PCR and TMA. This test has not been FDA cleared or approved. This test has been authorized by FDA under an Emergency Use Authorization (EUA). This test is only authorized for the duration of time the declaration that circumstances exist justifying the authorization of the emergency use of in vitro diagnostic tests for detection of SARS-CoV-2 virus and/or diagnosis of COVID-19 infection under section 564(b)(1) of the Act, 21 U.S.C. 360bbb-3 (b) (1), unless the authorization is terminated or revoked sooner. When diagnostic testing is negative, the possibility of a false negative result should be considered in the context of a patient's recent exposures and the presence of clinical signs and symptoms consistent with COVID-19. An individual without symptoms of COVID-19 and who is not shedding SARS-CoV-2 virus would expect to have a negative (not detected) result in this assay. Performed at: [facility] [address], [place], [place] [id number] [employer] Mechanic: Kat Schultz PhD, Phone: [phone] Not Detected ID Date Data Source [id number] 04/25/2020 02:20:00 PM EST [facility] Name Value Range Interpretation Code Description Data Nery rce(s) Supporting Document(s) SARS coronavirus 2 RNA Not Detected [facility] This lab was ordered by [facility] and reported by [facility]. ID Date Data Source [id number] 02/25/2020 01:35:00 PM EST [facility] ([facility]) Name Value Range Interpretation Code Description Data Nery rce(s) Supporting Document(s) Laboratory test finding (navigational concept) Laboratory test result [facility] ([facility]) Test: COVID-19 Nasal/Naspharynx Result: NOT DETECTED Reference Units: Not detected Note: Please consider re-collection of a new specimen, if clinically indicated. Note: The COVID-19 assay is under Emergency Use Authorization(EUA) by the U.S. Food and Drug Administration. [facility] is designated as a high complexity laboratory by the Clinical Laboratory Improvement Amendments of 1988(CLIA) and is qualified to perform this test. ASSAY INFORMATION: Real Time RT-PCR Patient samples for this assay have been pooled. All positive samples have been individually repeated for confirmation. The pooling protocol is pending FDA review. ID Date Data Source [id number] 02/25/2020 12:00:00 AM EST GENE Name Value Range Interpretation Code Description Data Nery rce(s) Supporting Document(s) 2019-nCoV RNA XXX SLIM+probe-Imp [place] This lab was ordered by [facility] and reported by [employer]. ID Date Data Source [id number] 12/03/2019 02:15:00 PM EDT [facility] ([facility]) Name Value Range Interpretation Code Description Data Nery rce(s) Supporting Document(s) Laboratory test finding (navigational concept) Laboratory test r esult Normal (applies to non-numeric results) [facility] ([facility]) A false negative result may occur if a s pecimen is improperly collected, transported or handled. False negative results may also occur if inadequate numbers of organisms are present in the specimen. As with any molecular test, mutations within the target regions of Xpert Xpress SARS-CoV-2 could affect primer and/or probe binding resulting in failure to detect the presence of virus. This test cannot rule out diseases caused by other bacterial or viral pathogens. DISCLAIMER: Testing was performed using the [employer] SARS-CoV-2 test. This test was developed and its performance characteristics determined by [employer]. This test has not been FDA cleared or approved. This test has been authorized by FDA under an Emergency Use Authorization (EUA). This test is only authorized for the duration of time the declaration that circumstances exist justifying the authorization of the emergency use of in vitro diagnostic tests for detection of SARS-CoV-2 virus and/or diagnosis of COVID-19 infection under section 564(b)(1) of the Act, 21 U.S.C. 360bbb-3(b)(1), unless the authorization is terminated or revoked sooner. ID Date Data Source [id number] 12/03/2019 02:15:00 PM EDT [facility] ([facility]) Name Value Range Interpretation Code Description Data Nery rce(s) Supporting Document(s) Coronavirus 2019 Nasopharygeal Laboratory test result [facility] ([facility]) Comments: *[facility]* Laboratory test finding (navigational concept) Laboratory test result [facility] ([facility]) Laboratory test finding (navigational concept) Laboratory test r esult Normal (applies to non-numeric results) [facility] ([facility]) A false negative result may occur if a s pecimen is improperly collected, transported or handled. False negative results may also occur if inadequate numbers of organisms are present in the specimen. As with any molecular test, mutations within the target regions of Xpert Xpress SARS-CoV-2 could affect primer and/or probe binding resulting in failure to detect the presence of virus. This test cannot rule out diseases caused by other bacterial or viral pathogens. DISCLAIMER: Testing was performed using the [employer] SARS-CoV-2 test. This test was developed and its performance characteristics determined by [facility]. This test has not been FDA cleared or approved. This test has been authorized by FDA under an Emergency Use Authorization (EUA). This test is only authorized for the duration of time the declaration that circumstances exist justifying the authorization of the emergency use of in vitro diagnostic tests for detection of SARS-CoV-2 virus and/or diagnosis of COVID-19 infection under section 564(b)(1) of the Act, 21 U.S.C. 360bbb-3(b)(1), unless the authorization is terminated or revoked sooner. Laboratory test finding (navigational concept) Laboratory test result [facility] ([facility]) Laboratory test finding (navigational concept) Laboratory test result [facility] ([facility]) Laboratory test finding (navigational concept) Laboratory test result [facility] ([facility]) Laboratory test finding (navigational concept) Laboratory test result [facility] ([facility]) Laboratory test finding (navigational concept) Laboratory test result [facility] ([facility]) Laboratory test finding (navigational concept) Laboratory test result [facility] ([facility]) Laboratory test finding (navigational concept) Laboratory test result [facility] ([facility]) Laboratory test finding (navigational concept) Laboratory test result [facility] ([facility]) Laboratory test finding (navigational concept) Laboratory test result [facility] ([facility]) Laboratory test finding (navigational concept) Laboratory test result [facility] ([facility]) Laboratory test finding (navigational concept) Laboratory test result [facility] ([facility]) Laboratory test finding (navigational concept) Laboratory test result [facility] ([facility]) Laboratory test finding (navigational concept) Laboratory test result [facility] ([facility]) Laboratory test finding (navigational concept) Laboratory test result [facility] ([facility]) Laboratory test finding (navigational concept) Laboratory test result [facility] ([facility]) Laboratory test finding (navigational concept) Laboratory test result [facility] ([facility]) Laboratory test finding (navigational concept) Laboratory test result [facility] ([facility]) Laboratory test finding (navigational concept) Laboratory test result [facility] ([facility]) Laboratory test finding (navigational concept) Laboratory test result [facility] ([facility]) Laboratory test finding (navigational concept) Laboratory test result [facility] ([facility]) Laboratory test finding (navigational concept) Laboratory test result [facility] ([facility]) Laboratory test finding (navigational concept) Laboratory test result [facility] ([facility]) Procedure Social History Code Duration Value Status Description Data Source(s ) Smoking 01/20/2021 12:00:00 AM EDT Former Smoker completed Former Smoker eCW1 ([facility]) Smoking 01/11/2021 12:00:00 AM EDT Current Smoker completed Curre nt Smoker eCW1 ([facility]) Smoking 12/07/2020 12:00:00 AM EDT Current Smoker completed Curre nt Smoker eCW1 ([facility]) Smoking 12/07/2020 12:00:00 AM EDT Patient is a former smoker completed Patient is a former smoker BENJA ([facility]) Smoking 12/07/2020 12:00:00 AM EDT Current Smoker completed Curre nt Smoker eCW1 ([facility]) Alcohol intake 11/30/2020 12:00:00 AM EDT Current drinker of al cohol (finding) completed Current drinker of alcohol (finding) [facility] Tobacco use and exposure 11/30/2020 12:00:00 AM EDT Never used co mpleted Never used [facility] Smoking 11/30/2020 12:00:00 AM EDT Former smoker completed Former smoker [facility] Smoking 10/09/2020 12:00:00 AM EDT Former Smoker completed Former Smoker eCW1 ([facility]) Alcohol intake 05/19/2020 12:00:00 AM EST Current non-d mk of alcohol (finding) completed Current non-drinker of alcohol (finding) [facility] Smoking 01/25/2020 12:00:00 AM EDT Patient is a former smoker completed Patient is a former smoker [facility] ([facility]) Vital Signs ID Date Data Source UNK Name Value Range Interpretation Code Description Data Source(s) Body mass index (BMI) [Ratio] 39.07 kg/m2 39.07 kg/m2 eCW1 ([facility]) Body weight 206.8 [lb_av] 206.8 [lb_av] eCW1 ([facility]) Body height 61 [in_i] 61 [in_i] eCW1 ([facility]) Systolic blood pressure 124 mm[Hg] 124 mm[Hg] e CW1 ([facility]) Diastolic blood pressure 74 mm[Hg] 74 mm[Hg] eCW1 ([facility]) Body temperature 97.9 [degF] 97.9 [degF] [facility] ([facility] ) Body weight 201.6 [lb_av] 201.6 [lb_av] eCW1 ([facility]) Body height 61 [in_i] 61 [in_i] eCW1 ([facility]) Body mass index (BMI) [Ratio] 38.09 kg/m2 38.09 kg/m2 eCW1 ([facility]) Systolic blood pressure 118 mm[Hg] 118 mm[Hg] e CW1 ([facility]) Diastolic blood pressure 74 mm[Hg] 74 mm[Hg] eCW1 ([facility]) Heart rate 62 /min 62 /min [facility] ([facility]) Respiratory rate 14 /min 14 /min [facility] ( [facility]) Systolic blood pressure 110 mm[Hg] 110 mm[Hg] M EDENT ([facility]) Diastolic blood pressure 64 mm[Hg] 64 mm[Hg] [facility] ([facility]) Body height 61.2 [in_i] 61.2 [in_i] [facility]) 5'20" Body weight 204.00 [lb_av] 204.00 [lb_av] [facility] T ([facility]) Body mass index (BMI) [Ratio] 38.3 kg/m2 38.3 k g[facility]m2 [facility] Body temperature 98.1 [degF] 98.1 [degF] [facility] ([facility]) Oxygen saturation in Arterial blood by Pulse oximetry 98 % 98 % [facility] ([facility]) Almo body weight 105 [lb_av] 105 [lb_av] [facility] T ([facility]) Body mass index (BMI) [Ratio] 37.2 kg/m2 37.2 k g/m2 [facility] Body height 61.2 [in_i] 61.2 [in_i] [facility]) 5'.20" Body weight 198.38 [lb_av] 198.38 [lb_av] [facility] T ([facility]) Heart rate 75 /min 75 /min [facility] ([facility]) Respiratory rate 18 /min 18 /min [facility] ( [facility]) Body temperature 98.0 [degF] 98.0 [degF] [facility] ([facility]) Oxygen saturation in Arterial blood by Pulse oximetry 99 % 99 % [facility] ([facility]) Almo body weight 105 [lb_av] 105 [lb_av] [facility] T ([facility]) Systolic blood pressure 118 mm[Hg] 118 mm[Hg] M EDENT ([facility]) Diastolic blood pressure 72 mm[Hg] 72 mm[Hg] [facility] ([facility]) Body weight 200 [lb_av] 200 [lb_av] eCW1 ([facility]) Body mass index (BMI) [Ratio] 37.79 kg/m2 37.79 kg/m2 eCW1 ([facility]) Body height 61 [in_i] 61 [in_i] eCW1 ([facility]) Systolic blood pressure 122 mm[Hg] 122 mm[Hg] e CW1 ([facility]) Diastolic blood pressure 76 mm[Hg] 76 mm[Hg] eCW1 ([facility]) Respiratory rate 16 /min 16 /min [facility] ( [facility]) Body temperature 97.3 [degF] 97.3 [degF] [facility] ([facility]) Oxygen saturation in Arterial blood by Pulse oximetry 99 % 99 % [facility] ([facility]) Almo body weight 105 [lb_av] 105 [lb_av] [facility] T ([facility]) Systolic blood pressure 110 mm[Hg] 110 mm[Hg] M EDENT ([facility]) Diastolic blood pressure 76 mm[Hg] 76 mm[Hg] [facility] ([facility]) Body height 61.2 [in_i] 61.2 [in_i] [facility] ([facility]) 5'1.20" Body weight 203.00 [lb_av] 203.00 [lb_av] [facility] T ([facility]) Body mass index (BMI) [Ratio] 38.1 kg/m2 38.1 k g/m2 [facility] ([facility]) Heart rate 73 /min 73 /min [facility] ([facility]) Body temperature 98.3 [degF] 98.3 [degF] [facility] ([facility]) Oxygen saturation in Arterial blood by Pulse oximetry 99 % 99 % [facility] ([facility]) Systolic blood pressure 114 mm[Hg] 114 mm[Hg] M EDENT ([facility]) Diastolic blood pressure 78 mm[Hg] 78 mm[Hg] [facility] ([facility]) Body height 61.2 [in_i] 61.2 [in_i] [facility] ([facility]) 20" Body weight 199.00 [lb_av] 199.00 [lb_av] [facility] T ([facility]) Body mass index (BMI) [Ratio] 37.4 kg/m2 37.4 k g/m2 [facility] ([facility]) Heart rate 48 /min 48 /min [facility] ([facility]) Respiratory rate 18 /min 18 /min [facility] ( [facility]) Almo body weight 105 [lb_av] 105 [lb_av] [facility] T ([facility]) Body weight 205.00 [lb_av] 205.00 [lb_av] [facility] T ([facility]) Body mass index (BMI) [Ratio] 38.5 kg/m2 38.5 k g/m2 [facility] ([facility]) Heart rate 71 /min 71 /min [facility] ([facility]) Respiratory rate 18 /min 18 /min [facility] ( [facility]) Body temperature 98.4 [degF] 98.4 [degF] [facility] ([facility]) Systolic blood pressure 118 mm[Hg] 118 mm[Hg] [facility] ([facility]) Diastolic blood pressure 70 mm[Hg] 70 mm[Hg] [facility] ([facility]) Body height 61.2 [in_i] 61.2 [in_i] [facility] ([facility]) " Oxygen saturation in Arterial blood by Pulse oximetry 98 % 98 % [facility] ([facility]) Almo body weight 105 [lb_av] 105 [lb_av] [facility] T ([facility]) Body temperature 97.4 [degF] 97.4 [degF] [facility] ([facility], ) Systolic blood pressure 116 mm[Hg] 116 mm[Hg] [facility], ) Body height 61 [in_i] 61 [in_i] [facility] 5'1" Heart rate 76 /min 76 /min [facility] ([facility], ) Oxygen saturation in Arterial blood by Pulse oximetry 99 % 99 % [facility]) Body weight 203.00 [lb_av] 203.00 [lb_av] [facility] T ([facility]) Body mass index (BMI) [Ratio] 38.4 kg/m2 38.4 k g/m2 [facility] ([facility]) Almo body weight 105 [lb_av] 105 [lb_av] [facility] T ([facility]) Body weight 92.081 kg 92.081 kg [facility]) Body surface area Derived from formula 1.90 m2 1.90 m2 [facility] ([facility]) Diastolic blood pressure 76 mm[Hg] 76 mm[Hg] [facility] ([facility]) Body weight 200.00 [lb_av] 200.00 [lb_av] [facility] T ([facility]) Systolic blood pressure 112 mm[Hg] 112 mm[Hg] [facility]) Diastolic blood pressure 75 mm[Hg] 75 mm[Hg] [facility] ([facility]) Heart rate 52 /min 52 /min [facility] ([facility]) Respiratory rate 14 /min 14 /min [facility] ( [facility]) Oxygen saturation in Arterial blood by Pulse oximetry 99 % 99 % [facility] ([facility]) Body mass index (BMI) [Ratio] 37.8 kg/m2 37.8 k g/m2 [facility] ([facility]) Body height 61 [in_i] 61 [in_i] [facility] ([facility]) 5'1" ID Date Data Source [id number] 05/19/2020 09:33:31 AM [facility] Name Value Range Interpretation Code Description Data Source(s) WEIGHT RECORDED 193 lb 193 lb [facility] Patient Treatment Plan of Care Planned Activity Planned Date Details Description Data Source (s) 24 HR venlafaxine 37.5 MG Extended Release Oral Capsul e 11/21/2020 12:00:00 AM [facility]ital
--- OUTSIDE RECORDS SUMMARY | 2021-01-26 09:10 | CCD | Continuity of Care Document ---
Author Author Marilee GARYSON PA Organization [place] [address] Phone [phone] Care Team Providers Care Cyber Systems Administrator Name Role Phone Eri Kuhn D.O. AUTM [...] Kuhn D.O. 11/28 Vitamin C W/Vitamin E [id number] Capsules Ashwin MadrigalOAnt 06/01/[address] 1 by mouth every day 90caps R10.10 Ashwin Madrigal.O. 06/01 Vitamin D (Ergocalciferol) 1.25mg (62495 Ut) Capsules 1 capsule weekly for 12 weeks 12caps Ashwin Portillo.O. 05/28/2020 Liliya Allergy 60mg Tablets 1 by mouth every day 30tabs Ashwin Madrigal.O. 10/02 Multivitamin Adults Tablets Ashwin Madrigal.O. 10/02/2018 Patanol 0.1% Solution 1 drop daily in each eye as needed 1units Eri Kuhn D.O. 06/06 Fluticasone Propionate 50mcg/Act Suspension 2 spray each nostril once a day 32gm Eri Olvera D.OAnt 01/13/2015 Iron 325(65Fe) mg Tablets 1 by [...] CPT Code Status Date Vaccine Lot # [id number] Given 03/31/2019 Pneumococcal Con jugate Vaccine 13 Valent For Intramuscular Use [id number] U-Flu Given 02/09/2015 Influenza,Unspecified Vital Signs Date Vital Result Comment 11/28/2020 8:10am BP Systolic 110 mmHg BP Diastolic 64 mmHg Height 61.2 inches 5'1.20" Weight 204.00 lb BMI (Body Mass Index) 38.3 kg/m2 Heart Rate 62 /min Respiratory Rate 14 /min Body Temperature 98.1 F O2 % BldC Oximetry 98 % Yoder Body Weight 105 lb 10/24/2020 8:01am BP Systolic 118 mmHg BP Diastolic 72 mmHg Height 61.2 inches 5'1.20" Weight 198.38 lb BMI (Body Mass Index) 37.2 kg/m2 Heart Rate 75 /min Respiratory Rate 18 /min Body Temperature 98.0 F O2 % BldC Oximetry 99 % Yoder Body Weight 105 lb Results Description No Information Available Procedures Date Code Description Status 11/28/2020 78317 Office/Outpatient Established Lo w MDM 20-29 Min Completed 10/24/2020 91278 Office/Outpatient Established Lo w MDM 20-29 Min Completed 09/25/2020 38027 Office/Outpatient Established Lo w MDM 20-29 Min Completed Medical Devices Description No Information Available Encounters Type Date Location Provider Dx Diagnosis Office Visit 11/28/2020 8:00a [facility] DAMIEN Mccall F41.1 Generalized anxiety disorder E55.9 Vitamin D deficiency, unspec ified Z98.84 Bariatric surgery status Z79.899 Other fdc (current) dr stephen lieberman Office Visit 10/24/2020 8:00a [facility] Eri Kuhn D.O. F41.1 Generalized anxiety disorder G47.33 Obstructive sleep apnea (filemon lt) (pediatric) Z98.84 Bariatric surgery status E55.9 Vitamin D deficiency, unspec ified E66.9 Obesity, unspecified Z79.899 Other fdc (current) dr stephen lieberman Z87.891 Personal history of nicotine dependence Z88.0 Allergy status to penicillin Z88.1 Allergy status to other anti biotic agents Z68.37 Body mass index [BMI] 37.0-3 7.9, adult Office Visit 09/25/2020 8:15a [facility] DAMIEN Mccall F41.1 Generalized anxiety disorder G47.33 Obstructive sleep apnea (filemon lt) (pediatric) Assessments Date Code Description Provider 11/28/2020 F41.1 Generalized anxiety disorder DAMIEN Velasquez 11/28/2020 E55.9 Vitamin D deficiency, unspecifie d DAMIEN Mccall 11/28/2020 Z98.84 Bariatric surgery status DAMIEN Mccall 11/28/2020 Z79.899 Other fdc (current) drug t herapy DAMIEN Mccall 10/24/2020 F41.1 Generalized anxiety disorder Lety l Bam, D.O. 10/24/2020 G47.33 Obstructive sleep apnea (adult) (pediatric) Eri Griffith, D.O. 10/24/2020 Z98.84 Bariatric surgery status Eri Lyndsay Naomie, D.O. 10/24/2020 E55.9 Vitamin D deficiency, unspecifie d Eri Kuhn, D.O. 10/24/2020 E66.9 Obesity, unspecified Eri Borrego, D.O. 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 10/24/2020 Z87.891 Personal history of nicotine dep endence Eri Kuhn, D.O. 10/24/2020 Z88.0 Allergy status to penicillin Lety l Bam, D.O. 10/24/2020 Z88.1 Allergy status to other antibiot ic agents Eri Kuhn, D.O. 10/24/2020 Z68.37 Body mass index [BMI] 37.0-37.9, adult Eri Kuhn, D.O. 09/25/2020 F41.1 Generalized anxiety disorder DAMIEN Velasquez 09/25/2020 G47.33 Obstructive sleep apnea (adult) (pediatric) DAMIEN Mccall Plan of Treatment Future Appointment(s):* 01/23/2021 8:00 am - DAMIEN Mccall at [facility] Functional Status Description No Information Available Mental Status Description No Information Available Referrals Description No Information Available
--- OUTSIDE RECORDS SUMMARY | 2021-01-26 09:10 | CCD | Continuity of Care Document ---
Author Author Marilee GRAYSON PA Organization [place] [address] Phone [phone] Care Team Providers Care Rock Worker Name Role Phone Eri Kuhn D.O. AUTM [...] Kuhn D.O. 11/28 Vitamin C W/Vitamin E [id number] Capsules Ashwin MadrigalOAnt 06/01/[address] 1 by mouth every day 90caps R10.10 Ashwin Madrigal.O. 06/01 Vitamin D (Ergocalciferol) 1.25mg (09332 Ut) Capsules 1 capsule weekly for 12 [...] CPT Code Status Date Vaccine Lot # [id number] Given 03/31/2019 Pneumococcal Con jugate Vaccine 13 Valent For Intramuscular Use [id number] U-Flu Given 02/09/2015 Influenza,Unspecified Vital Signs Date Vital Result Comment 11/28/2020 8:10am BP Systolic 110 mmHg BP Diastolic 64 mmHg Height 61.2 inches 5'1.20" Weight 204.00 lb BMI (Body Mass Index) 38.3 kg/m2 Heart Rate 62 /min Respiratory Rate 14 /min Body Temperature 98.1 F O2 % BldC Oximetry 98 % [place] Body Weight 105 lb 10/24/2020 8:01am BP Systolic 118 mmHg BP Diastolic 72 mmHg Height 61.2 inches 5'1.20" Weight 198.38 lb BMI (Body Mass Index) 37.2 kg/m2 Heart Rate 75 /min Respiratory Rate 18 /min Body Temperature 98.0 F O2 % BldC Oximetry 99 % [place] Body Weight 105 lb Results Description No Information Available Procedures Date Code Description Status 11/28/2020 11494 Office/Outpatient Established Lo w MDM 20-29 Min Completed 10/24/2020 75958 Office/Outpatient Established Lo w MDM 20-29 Min Completed 09/25/2020 77534 Office/Outpatient Established Lo w MDM 20-29 Min Completed 06/01/2020 94556 Office/Outpatient Established Mo d MDM 30-39 Min Completed Medical Devices Description No Information Available Encounters Type Date Location Provider Dx Diagnosis Office Visit 11/28/2020 8:00a [facility] DAMIEN Mccall F41.1 Generalized anxiety disorder E55.9 Vitamin D deficiency, unspec ified Z98.84 Bariatric surgery status Z79.899 Other intermediate (current) dr stephen lieberman Office Visit 10/24/2020 8:00a [facility] Eri Kuhn D.O. 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 Z87.891 Personal history of nicotine dependence Z88.0 Allergy status to penicillin Z88.1 Allergy status to other anti biotic agents Z68.37 Body mass index [BMI] 37.0-3 7.9, adult Office Visit 09/25/2020 8:15a [facility] DAMIEN Mccall F41.1 Generalized anxiety disorder G47.33 Obstructive sleep apnea (filemon lt) (pediatric) Office Visit 06/01/2020 8:40a [facility] DAMIEN Mccall R10.10 Upper abdominal pain, unspec ified Assessments Date Code Description Provider 11/28/2020 F41.1 Generalized anxiety disorder DAMIEN Velasquez 11/28/2020 E55.9 Vitamin D deficiency, unspecifie d DAMIEN Mccall 11/28/2020 Z98.84 Bariatric surgery status DAMIEN Mccall 11/28/2020 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 10/24/2020 G47.33 Obstructive sleep apnea (adult) (pediatric) Eri Griffith D.O. 10/24/2020 Z98.84 Bariatric surgery status Eri Hyde, D.O. 10/24/2020 E55.9 Vitamin D deficiency, unspecifie d Eri Kuhn, D.O. 10/24/2020 E66.9 Obesity, unspecified Eri Borreog, D.O. 10/24/2020 Z79.899 Other intermediate (current) drug t herapy Eri Kuhn, D.O. 10/24/2020 Z87.891 Personal history of nicotine dep endence Eri Kuhn, D.O. 10/24/2020 Z88.0 Allergy status to penicillin Lety Kuhn, D.O. 10/24/2020 Z88.1 Allergy status to other antibiot ic agents Eri Kuhn, D.O. 10/24/2020 Z68.37 Body mass index [BMI] 37.0-37.9, adult Eri Kuhn, D.O. 09/25/2020 F41.1 Generalized anxiety disorder Akira DAMIEN Meraz 09/25/2020 G47.33 Obstructive sleep apnea (adult) (pediatric) DAMIEN Mccall 06/01/2020 R10.10 Upper abdominal pain, unspecifie d DAMIEN Mccall Plan of Treatment Future Appointment(s):* 01/23/2021 8:00 am - DAMIEN Mccall at [facility] 11/28/2020 - DAMIEN Mcclal* F41.1 Generalized anxiety disorder* New Medication:* Venlafaxine HCL ER 75 mg - 1 by mouth every day * Comments:* Increase your Venlafaxine from 37.5 mg to 75 mg to help with your anxiety and recent frustration * Follow up:* January * E55.9 Vitamin D deficiency, unspecified* Comments:* Continue with a daily Vitamin D3 2,000 IU supplement. * Z98.84 Bariatric surgery status* Comments:* continue with current supplements. 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
--- OUTSIDE RECORDS SUMMARY | 2021-01-26 09:10 | CCD | Continuity of Care Document ---
Author Author Marilee LEE DO Organization Unknown Address [address] [facility], [facility] [place] [address] Phone [phone] Care Team Providers Care Mica Patcher Name Role Phone Eri Kuhn D.O. AUTM [...] by mouth daily Unknown Flonase Sensimist 27 .5mcg/[place] Suspension 2 sprays per nostril twice daily [...] CPT Code Status Date Vaccine Lot # [id number] Given 01/09/2017 Influenza Virus Split 3 Yrs And Above For Intramuscular Use 27946 Given 12/27/2016 Tetanus, Diphthe allison Toxoids/Acellular Pertussis Vaccine 7 Or > 85077 Given 09/29/2013 Tetanus, Diphthe allison Toxoids/Acellular Pertussis Vaccine 7 Or > Vital Signs Date Vital Result Comment 12/07/2020 10:25am Body Temperature 97.9 F 04/17/2020 1:32pm BP Systolic 116 mmHg BP Diastolic 76 mmHg Heart Rate 76 /min O2 % BldC Oximetry 99 % Body Temperature 97.4 F Height 61 inches 5'1" Weight 203.00 lb BMI (Body Mass Index) 38.4 kg/m2 [place] Body Weight 105 lb Weight 92.081 kg BSA (Body Surface Area) 1.90 m2 Results Description No Information Available Procedures Description No Information Available Medical Devices Description No Information Available Encounters Description No Information Available Assessments Description No Information Available Plan of Treatment Future Appointment(s):* 12/21/2020 9:00 am - Farhat Lee DO at [facility] * 04/17/2021 3:30 pm - CARRILLO Parrish at [facility] Pulmonary/Thoracic Functional Status Description No Information Available Mental Status Description No Information Available Referrals Description No Information Available
--- OUTSIDE RECORDS SUMMARY | 2021-01-26 09:10 | CCD ---
Author Author [facility] Organization [facility] Address Unknown Phone Unavailable Care Team Providers Care Operator Automated Process Name Role Phone Srini Ni Unavailable PROBLEMS Type Condition ICD9-CM Code CSH58-VU Code Onset Dates Condition S tatus W/U Status Risk SNOMED Code Notes Problem Melanocytic nevi of face D22.30 Active confirmed 416897378 Problem Melanocytic nevi of left lower limb, including hip D22.72 Active confirmed 787992433 Problem Melanocytic nevi of right lower limb, including hip D22.71 Active confirmed 711160604 Problem Nevus of neck D22.4 Active confirmed 535675 00 Problem Excessive menses N92.0 Active confirmed 266 340977 Problem 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 Active confirmed 2385 59252 Problem Melanocytic nevi of left upper limb, including shoulder D22.62 Active confirmed 281709433 Problem Melanocytic nevi of right upper limb, including shoulder D22.61 Active confirmed 433186002 Problem Melanocytic nevi of trunk D22.5 Active confirmed 031728197 Problem Compound nevus of buttock D22.5 Active confirmed 28180439 ALLERGIES Allergen (clinical drug ingredient) Drug/Non Drug Allergy do cumented on EMR Reaction Allergy Type Onset Date Status NSAIDS due to ITP Non Drug Allergy Active azithromycin Zithromax(ND Code:[address]-64) Rash Drug Allerg y Active PCN ITP Non Drug Allergy Active doxycycline Doxycycline(ND Code:[address]-03) Rash Drug Aller gy Active ENCOUNTERS from 1980 to 2020-12-14 Encounter Location Date Provider Diagnosis [facility] [phone] [place] [address] Nov, Srini Ni Excessive menses N92 .0 and Wrist pain, acute M25.539 IMMUNIZATIONS No Information SOCIAL HISTORY Tobacco Use: Social History Observation Description Date Details (start date - stop date) Current Smoker Sex Assigned At : Social History Observation Description Sex Assigned At Unknown Language: Question Answer Notes Languages spoken: Belarusian Sexual Hx: Question Answer Notes Had sex [...] FOR REFERRAL No Information VITAL SIGNS Weight 201.6 lbs Nov, Height 61 in Nov, BMI 38.09 kg/m2 Nov, Blood pressure systolic 118 mm Hg Nov, Blood pressure diastolic 74 mm Hg Nov, MEDICATIONS Medication SIG (Take, Route, Frequency, Duration) [...] Information RESULTS No Results REASON FOR VISIT DISCUSS ABLATION MEDICAL (GENERAL) HISTORY Type Description Date Medical [...] Notes Treatment Notes Treatm ent Clinical Notes Nov, Excessive menses (ICD-10 - N92.0) Nov, Wrist pain, acute (ICD-10 - M25.539) PLAN OF TREATMENT Treatment Notes Test Name Order Date PLZ PELVIC NON OB COMPLETE 2020-12-07 PLZ WRIST (AP/LAT) 2020-12-07 Next Appt Details Provider Name:Robyn Do Franki, 08:15:00 AM, [address] [facility], , [place], [address], Insurance Providers Payer Name Payer Address Payer Phone Insured Name Patient Relati onship to Insured Coverage Start Date Coverage End Date [employer] OF [facility] [id number] [facility] [id number] LINDA ALFONSO self
[2021-01-26 09:42] LABS: HEMATOCRIT 35.5 % (36.0-47.0); HEMOGLOBIN 12.1 g/dl (12.0-15.5); MEAN CORPUSCULAR HEMOGLOBIN 30.3 pg (27.0-33.0); MEAN CORPUSCULAR HGB CONC 34.1 g/dl (32.0-36.5); PLATELET COUNT, AUTOMATED 320 10^3/uL (150-450); RED BLOOD COUNT 3.99 10^6/uL (4.00-5.40); WHITE BLOOD COUNT 6.6 10^3/uL (4.0-10.0)
[2021-01-26] MEDS ORDERED: propofoL 200 MG/20 ML VIAL As Ordered ONE (09:49)
[2021-01-26] MEDS ORDERED: dexameTHASONE 4 MG/ML 1ML VIAL (J1100 PER 1MG) As Ordered ONE (09:49)
[2021-01-26] MEDS ORDERED: ONDANSETRON 4MG/2ML VIAL As Ordered ONE (09:49)
[2021-01-26] MEDS ORDERED: KETOROLAC 60MG 2ML VIAL As Ordered ONE (09:49)
[2021-01-26] MEDS ORDERED: LIDOCAINE 2% 100MG/5ML SDV (FOR ANES.) As Ordered ONE (09:49)
[2021-01-26] MEDS ORDERED: MIDAZOLAM INJ 2MG/2ML VIAL (J2250 PER 1MG) As Ordered ONE (09:50)
[2021-01-26] MEDS ORDERED: fentaNYL 100 MCG/2 ML INJECTION (J3010) As Ordered ONE (09:50)
--- NOTE | 2021-01-26 10:39 | ROOPDOC ---
[facility] Report Of Operation Report of Operation DATE OF PROCEDURE: 01/26/21 PREPROCEDURE DIAGNOSES: menorrhagia POSTPROCEDURE DIAGNOSES: Same. PROCEDURE PERFORMED: hysteroscopy, D&C, NovaSure endometrial ablation SURGEON: Tracey Benedict MD ANESTHESIA: GETA. ESTIMATED BLOOD LOSS: Approximately 10 mL. COMPLICATIONS: none. FINDINGS: Normal endometrial cavity. SPECIMENS REMOVED: endometrial curettings PROCEDURE NOTE: A speculum was placed in the vagina. The anterior lip of the cervix was grasped with a tenaculum. The cervix was dilated with tapered dilators. Diagnostic hysteroscope using normal saline as the distention media was placed through the internal os. Visualization of the endometrial cavity revealed the findings noted above. The hysteroscope was removed. Sharp curettage was performed. The NovaSure device was assembled and found to be in working order. The device was inserted through the internal os and opened. Total cavity length was 4.0 cm. Total cavity width was 4.0 cm. Power setting was 88 W. A successful cavity assessment was performed. The device was activated. Total coagulation time was 2 minutes. The device was removed. The hysteroscope was placed back through the internal os. An excellent coagulation effect was noted throughout the endometrium. All instruments were removed. Sponge, instrument, and needle counts correct. TRACEY BENEDICT MD Jan 26, 2021 10:39
[2021-01-26] MEDS ORDERED: METOCLOPRAMIDE INJ 10MG/2ML VIAL (J2765 PER 1) As Ordered ONE (10:40)
[2021-01-26] MEDS ORDERED: ACETAMINOPHEN 1000MG 100ML IV BTL (OFIRMEV) (J0131 PER 10MG) As Ordered ONE (10:41)
[2021-01-26] MEDS ORDERED: oxyCODONE 5MG TAB PO PRN ×2 (11:35→11:40)
[2021-01-26] MEDS ORDERED: HYDROMORPHONE HCL 0.5 MG/ 0.5 ML SYRINGE (J1170 PER 1) IV PRN (11:35)
[2021-01-26] MEDS ORDERED: fentaNYL 100 MCG/2 ML INJECTION (J3010) IV PRN (11:35)
[2021-01-26] MEDS ORDERED: ONDANSETRON 4MG/2ML VIAL IV PRN (11:35)
[2021-01-26] MEDS ORDERED: LR 1,000 ML IV SCH ×2 (11:35→11:40)
[2021-01-26 12:54] VITALS: BP 128/66
== END 2021-01-26 12:54 | disposition home or self-care (01) ==
LOC: M SDC 09:03
PROVIDERS: ATTEND Specialist
DX: N85.8 Other specified noninflammatory disorders of uterus (principal); N92.0 Excessive and frequent menstruation with regular cycle; L40.9 Psoriasis, unspecified; F32.9 Major depressive disorder, single episode, unspecified; J45.909 Unspecified asthma, uncomplicated; G47.30 Sleep apnea, unspecified; R06.83 Snoring; Z72.0 Tobacco use; Z88.1 Allergy status to other antibiotic agents; Z88.0 Allergy status to penicillin; Z79.899 Other long term (current) drug therapy; Z98.84 Bariatric surgery status
CPT/HCPCS: 36415; 58563; 81025; 85027; 88305; J0131; J1100; J1885; J2250; J2405; J2765; J3010

== ENCOUNTER → 2021-03-01 | Outpatient (REF) ==
[~2021-03-01] MED LIST changes: -LIDOCAINE 1% MDV 20ML VIAL SQ PRN; -LR 1,000 ML IV ONE
== END ==
LOC: M EMP 09:56
PROVIDERS: ATTEND Family Medicine
DX: Z11.52 Encounter for screening for COVID-19 (principal)

== ENCOUNTER → 2021-03-06 | Outpatient (REF) | LOC: M EMP 07:35 | PROVIDERS: ATTEND Family Medicine | DX: Z11.52 Encounter for screening for COVID-19 (principal) ==

== ENCOUNTER → 2021-07-04 | Outpatient (REF) ==
[~2021-07-04] MED LIST changes: -D31000TA2 PO; -OLOP0.1D OU; +OLOP5DRO16 OU; +VITA100093 PO
== END ==
LOC: M EMP 07:56
PROVIDERS: ATTEND Family Medicine
DX: Z11.52 Encounter for screening for COVID-19 (principal)

== ENCOUNTER → 2021-07-30 | Outpatient (CLI) | payer BC ==
[2021-07-30 11:07] LABS: HEMOGLOBIN A1c 4.6 %
[2021-07-30 11:26] LABS: ALBUMIN 3.8 GM/DL (3.2-5.2); ALT/SGPT 34 U/L (12-78); BILIRUBIN,TOTAL 0.4 MG/DL (0.2-1.0); BLOOD UREA NITROGEN 9 MG/DL (7-18); CALCIUM LEVEL 8.7 MG/DL (8.5-10.1); CARBON DIOXIDE LEVEL 29 MEQ/L (21-32); CHLORIDE LEVEL 107 MEQ/L (98-107); CHOLESTEROL LEVEL 154 MG/DL (<200); CHOLESTEROL RISK RATIO 2.333 (<5); CREATININE FOR GFR 0.53 MG/DL (0.55-1.30); FERRITIN 66 NG/ML (8-252); FOLATE 20.5 NG/ML (>5.4); GLOMERULAR FILTRATION RATE > 60.0 (>58); GLUCOSE, FASTING 69 MG/DL (70-100); HDL CHOLESTEROL 66 MG/DL (>40); IRON (FE) 109 UG/DL (50-170); LDL CHOLESTEROL 69 MG/DL (<100); NON-HDL-C 88 MG/DL; PERCENT SATURATION 32.3 % (13.2-45.0); POTASSIUM SERUM 4.6 MEQ/L (3.5-5.1); PREALBUMIN 19.9 MG/DL (20.0-40.0); SODIUM LEVEL 139 MEQ/L (136-145); TOTAL 25(OH) VITAMIN D 19.6 NG/ML (30.0-100.0); TOTAL IRON BINDING CAPACITY 337 UG/DL (250-450); TOTAL PROTEIN 7.1 GM/DL (6.4-8.2); TRIGLYCERIDES LEVEL 97 MG/DL (<150)
== END ==
LOC: M PLALAB 08:13
PROVIDERS: ATTEND Registered Nurse
DX: E55.9 Vitamin D deficiency, unspecified (principal)

== ENCOUNTER → 2021-07-30 | Outpatient (CLI) | payer BC | LOC: M WHC 08:34 | PROVIDERS: ATTEND Registered Nurse | DX: E66.01 Morbid (severe) obesity due to excess calories (principal); E56.0 Deficiency of vitamin E; E53.8 Deficiency of other specified B group vitamins; K91.2 Postsurgical malabsorption, not elsewhere classified ==

== ENCOUNTER → 2021-08-14 | Outpatient (REF) | LOC: M EMP 15:05 | PROVIDERS: ATTEND Family Medicine | DX: Z11.52 Encounter for screening for COVID-19 (principal) ==

== ENCOUNTER → 2021-08-15 | Outpatient (REF) | LOC: M EMP 08:18 | PROVIDERS: ATTEND Family Medicine | DX: Z11.52 Encounter for screening for COVID-19 (principal) ==

== ENCOUNTER → 2021-10-10 | Outpatient (REF) | payer BC | LOC: M SFHCDERM 14:44 | PROVIDERS: ATTEND Physician Assistant | DX: D22.5 Melanocytic nevi of trunk (principal) ==

== ENCOUNTER 2021-10-20 06:07 | Emergency (ER) | payer BC ==
[~2021-10-20] VITALS: Ht 154.9 cm; Wt 99.1 kg
[2021-10-20] MEDS ORDERED: VITMTA PO (06:23)
[2021-10-20] MEDS ORDERED: NS 1,000 ML IV ONE (06:50)
[2021-10-20 07:46] LABS: BASO # 0.1 10^3/uL (0.0-0.2); BASO % 0.4 % (0.0-1.0); EOS % 0.1 % (0.0-3.0); HEMATOCRIT 39.7 % (36.0-47.0); HEMOGLOBIN 13.2 g/dl (12.0-15.5); LYMPH # 0.8 10^3/uL (1.5-5.0); LYMPH % 7.2 % (24.0-44.0); MEAN CORPUSCULAR HEMOGLOBIN 30.6 pg (27.0-33.0); MEAN CORPUSCULAR HGB CONC 33.2 g/dl (32.0-36.5); MEAN CORPUSCULAR VOLUME 91.9 fl (80.0-96.0); MONO # 0.5 10^3/uL (0.0-0.8); MONO % 4.7 % (2.0-8.0); NEUTROPHILS # 10.1 10^3/uL (1.5-8.5); NEUTROPHILS % 87.1 % (36.0-66.0); PLATELET COUNT, AUTOMATED 325 10^3/uL (150-450); RED BLOOD COUNT 4.32 10^6/uL (4.00-5.40); WHITE BLOOD COUNT 11.6 10^3/uL (4.0-10.0)
[2021-10-20] MEDS ORDERED: KETOROLAC 30 MG/ML 1ML VIAL IV ONE (08:00)
[2021-10-20] MEDS ORDERED: ONDANSETRON 4MG 2ML VIAL IV ONE (08:00)
[2021-10-20 08:05] LABS: ALBUMIN 3.6 GM/DL (3.2-5.2); BILIRUBIN,DIRECT 0.2 MG/DL (0.0-0.2); BILIRUBIN,TOTAL 0.3 MG/DL (0.2-1.0); TOTAL PROTEIN 7.2 GM/DL (6.4-8.2)
[2021-10-20] MEDS ORDERED: ISOVUE-370 76% 100ML VIAL As Ordered ONE (08:24)
[2021-10-20 09:55] VITALS: BP 125/73
== END 2021-10-20 10:01 | disposition home or self-care (01) ==
LOC: M ED 06:07
DX: N13.30 Unspecified hydronephrosis (principal); J45.909 Unspecified asthma, uncomplicated; F17.200 Nicotine dependence, unspecified, uncomplicated; Z79.899 Other long term (current) drug therapy; Z88.0 Allergy status to penicillin; Z88.1 Allergy status to other antibiotic agents; Z98.890 Other specified postprocedural states; Z98.84 Bariatric surgery status
CPT/HCPCS: 74177; 80047; 80076; 81001; 82150; 83605; 83690; 85025; 93041; 96361; 96374; 96375; 99284; J1885; J2405; Q9967

== ENCOUNTER → 2021-11-08 | Outpatient (CLI) | payer BC | LOC: M SOG 09:33 | PROVIDERS: ATTEND Physician Assistant | DX: M25.571 Pain in right ankle and joints of right foot (principal) ==

== ENCOUNTER → 2021-12-11 | Outpatient (CLI) | payer BC | LOC: M SOG 13:46 | PROVIDERS: ATTEND Orthopaedic Surgery Hand Surgery | DX: S92.041A Displaced other fracture of tuberosity of right calcaneus, initial encounter for closed fracture (principal); W18.30XA Fall on same level, unspecified, initial encounter; Y92.009 Unspecified place in unspecified non-institutional (private) residence as the place of occurrence of the external cause ==

== ENCOUNTER → 2022-01-02 | Outpatient (REF) | LOC: M EMP 07:20 | PROVIDERS: ATTEND Family Medicine | DX: Z11.52 Encounter for screening for COVID-19 (principal) ==

== ENCOUNTER → 2022-07-16 | Outpatient (CLI) | payer BC ==
[2022-07-16 09:33] LABS: BASO # 0.1 10^3/uL (0.0-0.2); BASO % 1.2 % (0.0-1.0); EOS # 0.2 10^3/uL (0.0-0.5); EOS % 2.6 % (0.0-3.0); HEMATOCRIT 40.2 % (36.0-47.0); HEMOGLOBIN 13.2 g/dl (12.0-15.5); LYMPH # 1.6 10^3/uL (1.5-5.0); LYMPH % 23.6 % (24.0-44.0); MEAN CORPUSCULAR HEMOGLOBIN 30.6 pg (27.0-33.0); MEAN CORPUSCULAR HGB CONC 32.8 g/dl (32.0-36.5); MEAN CORPUSCULAR VOLUME 93.3 fl (80.0-96.0); MONO # 0.5 10^3/uL (0.0-0.8); MONO % 7.8 % (2.0-8.0); NEUTROPHILS # 4.5 10^3/uL (1.5-8.5); NEUTROPHILS % 64.2 % (36.0-66.0); PLATELET COUNT, AUTOMATED 312 10^3/uL (150-450); RED BLOOD COUNT 4.31 10^6/uL (4.00-5.40); WHITE BLOOD COUNT 6.9 10^3/uL (4.0-10.0)
[2022-07-16 09:36] LABS: IRON (FE) 77 UG/DL (50-170)
[2022-07-16 09:37] LABS: ALBUMIN 3.6 G/DL (3.2-5.2); ALKALINE PHOSPHATASE 96 U/L (46-116); ALT/SGPT 25 U/L (7.0-40); AST/SGOT 16 U/L (<34); BILIRUBIN,TOTAL 0.4 MG/DL (0.3-1.2); BLOOD UREA NITROGEN 12 MG/DL (9-23); CALCIUM LEVEL 8.7 MG/DL (8.5-10.1); CARBON DIOXIDE LEVEL 28 MMOL/L (20-31); CHLORIDE LEVEL 106 MMOL/L (98-107); CHOLESTEROL LEVEL 170 MG/DL (<200); CHOLESTEROL RISK RATIO 2.72 (<5); CREATININE FOR GFR 0.53 MG/DL (0.55-1.30); GLOMERULAR FILTRATION RATE > 60.0 (>58); GLUCOSE, FASTING 75 MG/DL (60-100); HDL CHOLESTEROL 62.4 MG/DL (>40); LDL CHOLESTEROL 85.4 MG/DL (<100); NON-HDL-C 107.6 MG/DL; PERCENT SATURATION 24.6 % (13.2-45.0); POTASSIUM SERUM 4.4 MMOL/L (3.5-5.1); SODIUM LEVEL 139 MMOL/L (136-145); TOTAL IRON BINDING CAPACITY 313 UG/DL (250-425); TOTAL PROTEIN 6.5 G/DL (5.7-8.2); TRIGLYCERIDES LEVEL 111 MG/DL (<150)
[2022-07-16 09:38] LABS: FERRITIN 102.2 NG/ML (7.3-270.7)
[2022-07-16 09:39] LABS: FOLATE 17.3 NG/ML (>5.4); TOTAL 25(OH) VITAMIN D 27.3 NG/ML (20.0-100.0)
[2022-07-16 09:45] LABS: VITAMIN B12 LEVEL > 2000 PG/ML (211-911)
[2022-07-19 04:07] LABS: COPPER PLASMA 98 ug/dL (80-158); SELENIUM LEVEL BLOOD 274 ug/L (100-340); VITAMIN B1 LEVEL WHOLE BLOOD 219.2 nmol/L (66.5-200.0); VITAMIN E(ALPHA TOCOPHEROL) 13.4 mg/L (7.0-25.1); VITAMIN E(GAMMA TOCOPHEROL) 0.3 mg/L (0.5-5.5); VITAMIN K1 <0.10 ng/mL (0.10-2.20); ZINC PLASMA 60 ug/dL (44-115)
== END ==
LOC: M LAB 08:08
PROVIDERS: ATTEND Registered Nurse
DX: Z98.84 Bariatric surgery status (principal); E56.0 Deficiency of vitamin E; E55.9 Vitamin D deficiency, unspecified; K91.2 Postsurgical malabsorption, not elsewhere classified

== ENCOUNTER → 2022-07-29 | Outpatient (REF) ==
[~2022-07-29] MED LIST changes: -OLOP5DRO16 OU; +OLOP5DRO17 OU
== END ==
LOC: M EMP 08:35
PROVIDERS: ATTEND Family Medicine
DX: Z11.52 Encounter for screening for COVID-19 (principal)

== ENCOUNTER → 2022-09-02 | Outpatient (CLI) | payer BC | LOC: M WUC 12:50 | PROVIDERS: ATTEND Student in an Organized Health Care Education/Training Program | DX: J34.89 Other specified disorders of nose and nasal sinuses (principal) ==

== ENCOUNTER → 2022-10-04 | Outpatient (CLI) | payer BC | LOC: M WHC 09:07 | PROVIDERS: ATTEND Family Medicine | DX: Z12.31 Encounter for screening mammogram for malignant neoplasm of breast (principal) ==

== ENCOUNTER → 2022-12-18 | Outpatient (REF) | LOC: M EMP 08:29 | PROVIDERS: ATTEND Family Medicine | DX: Z11.52 Encounter for screening for COVID-19 (principal) ==

== ENCOUNTER → 2023-01-27 | Outpatient (CLI) | payer BC ==
[2023-01-27 08:24] LABS: IONIZED CALCIUM 4.8 MG/DL (4.5-5.3)
[2023-01-27 08:47] LABS: HEMATOCRIT 38.4 % (36.0-47.0); HEMOGLOBIN 13.1 g/dl (12.0-15.5); MEAN CORPUSCULAR HEMOGLOBIN 31.5 pg (27.0-33.0); MEAN CORPUSCULAR HGB CONC 34.1 g/dl (32.0-36.5); MEAN CORPUSCULAR VOLUME 92.3 fl (80.0-96.0); PLATELET COUNT, AUTOMATED 359 10^3/uL (150-450); RED BLOOD COUNT 4.16 10^6/uL (4.00-5.40); WHITE BLOOD COUNT 6.3 10^3/uL (4.0-10.0)
[2023-01-27 09:20] LABS: ALBUMIN 3.6 G/DL (3.2-5.2); ALKALINE PHOSPHATASE 105 U/L (46-116); ALT/SGPT 33 U/L (7.0-40); AST/SGOT 21 U/L (<34); BILIRUBIN,TOTAL 0.4 MG/DL (0.3-1.2); BLOOD UREA NITROGEN 10 MG/DL (9-23); CALCIUM LEVEL 8.6 MG/DL (8.5-10.1); CARBON DIOXIDE LEVEL 30 MMOL/L (20-31); CHLORIDE LEVEL 106 MMOL/L (98-107); CHOLESTEROL LEVEL 151 MG/DL (<200); CHOLESTEROL RISK RATIO 2.81 (<5); CREATININE FOR GFR 0.59 MG/DL (0.55-1.30); GLOMERULAR FILTRATION RATE > 60.0 (>58); GLUCOSE, FASTING 77 MG/DL (60-100); HDL CHOLESTEROL 53.6 MG/DL (>40); IRON (FE) 74 UG/DL (50-170); LDL CHOLESTEROL 77.8 MG/DL (<100); NON-HDL-C 97.4 MG/DL; PERCENT SATURATION 25.6 % (13.2-45.0); POTASSIUM SERUM 4.3 MMOL/L (3.5-5.1); SODIUM LEVEL 141 MMOL/L (136-145); TOTAL IRON BINDING CAPACITY 289 UG/DL (250-425); TOTAL PROTEIN 6.6 G/DL (5.7-8.2); TRIGLYCERIDES LEVEL 98 MG/DL (<150)
[2023-01-27 09:21] LABS: FERRITIN 174.8 NG/ML (7.3-270.7)
[2023-01-27 09:22] LABS: FOLATE 19.08 NG/ML (>5.4); TOTAL 25(OH) VITAMIN D 31.1 NG/ML (20.0-100.0)
[2023-01-27 09:32] LABS: VITAMIN B12 LEVEL > 2000 PG/ML (211-911)
== END ==
LOC: M LAB 08:00
PROVIDERS: ATTEND Registered Nurse
DX: Z98.84 Bariatric surgery status (principal)

== ENCOUNTER → 2023-05-22 | Outpatient (REF) ==
[~2023-05-22] MED LIST changes: -BIOT50004 PO; +BIOT5CAP8 PO; +INSU100V19 SC; -INSURSD SC
== END ==
LOC: M EMP 07:52
PROVIDERS: ATTEND Family Medicine
DX: Z11.52 Encounter for screening for COVID-19 (principal)

== ENCOUNTER → 2023-09-18 | Outpatient (REF) | LOC: M EMP 09:43 | PROVIDERS: ATTEND Family Medicine | DX: Z11.52 Encounter for screening for COVID-19 (principal) ==

== ENCOUNTER → 2023-11-03 | Outpatient (CLI) | payer BC | LOC: M PLAIMG 08:40 | PROVIDERS: ATTEND Family Medicine | DX: R01.1 Cardiac murmur, unspecified (principal); I27.20 Pulmonary hypertension, unspecified; I08.1 Rheumatic disorders of both mitral and tricuspid valves ==

== ENCOUNTER → 2023-11-04 | Outpatient (CLI) | payer BC ==
[2023-11-04 09:27] LABS: BASO # 0.1 10^3/uL (0.0-0.2); EOS # 0.2 10^3/uL (0.0-0.5); HEMATOCRIT 37.6 % (36.0-47.0); HEMOGLOBIN 13.2 g/dl (12.0-15.5); LYMPH # 1.4 10^3/uL (1.5-5.0); LYMPH % 23.3 % (24.0-44.0); MEAN CORPUSCULAR HEMOGLOBIN 32.5 pg (27.0-33.0); MEAN CORPUSCULAR HGB CONC 35.1 g/dl (32.0-36.5); MEAN CORPUSCULAR VOLUME 92.6 fl (80.0-96.0); MONO # 0.4 10^3/uL (0.0-0.8); MONO % 6.9 % (2.0-8.0); NEUTROPHILS % 65.3 % (36.0-66.0); PLATELET COUNT, AUTOMATED 319 10^3/uL (150-450); RED BLOOD COUNT 4.06 10^6/uL (4.00-5.40); WHITE BLOOD COUNT 6.1 10^3/uL (4.0-10.0)
[2023-11-04 09:28] LABS: HEMATOCRIT 37.4 % (36.0-47.0)
[2023-11-04 09:47] LABS: TOTAL IRON BINDING CAPACITY 311 UG/DL (250-425)
[2023-11-04 09:48] LABS: ALBUMIN 3.8 G/DL (3.2-5.2); ALKALINE PHOSPHATASE 124 U/L (46-116); ALT/SGPT 46 U/L (7.0-40); AST/SGOT 26 U/L (<34); BILIRUBIN,TOTAL 0.4 MG/DL (0.3-1.2); BLOOD UREA NITROGEN 12 MG/DL (9-23); CALCIUM LEVEL 8.8 MG/DL (8.5-10.1); CARBON DIOXIDE LEVEL 28 MMOL/L (20-31); CHLORIDE LEVEL 105 MMOL/L (98-107); CHOLESTEROL LEVEL 158 MG/DL (<200); CHOLESTEROL RISK RATIO 2.85 (<5); CREATININE FOR GFR 0.53 MG/DL (0.55-1.30); GLOMERULAR FILTRATION RATE > 60.0 (>58); GLUCOSE, FASTING 75 MG/DL (60-100); HDL CHOLESTEROL 55.3 MG/DL (>40); IRON (FE) 78 UG/DL (50-170); LDL CHOLESTEROL 82.5 MG/DL (<100); MAGNESIUM LEVEL 1.9 MG/DL (1.8-2.4); NON-HDL-C 102.7 MG/DL; PERCENT SATURATION 25.1 % (13.2-45.0); POTASSIUM SERUM 4.4 MMOL/L (3.5-5.1); SODIUM LEVEL 139 MMOL/L (136-145); TOTAL PROTEIN 6.6 G/DL (5.7-8.2); TRIGLYCERIDES LEVEL 101 MG/DL (<150)
[2023-11-04 09:51] LABS: VITAMIN B12 LEVEL 1838 PG/ML (211-911)
[2023-11-04 09:52] LABS: FOLATE 19.9 NG/ML (>5.4); THYROID STIMULATING HORMONE 1.692 uIU/ML (0.55-4.78)
[2023-11-04 09:53] LABS: FERRITIN 230.4 NG/ML (7.3-270.7)
== END ==
LOC: M LAB 08:21
PROVIDERS: ATTEND Family Medicine
DX: E55.9 Vitamin D deficiency, unspecified (principal); Z98.84 Bariatric surgery status

== ENCOUNTER → 2023-11-12 | Outpatient (REF) | payer BC | LOC: M SFHCDERM 07:54 | PROVIDERS: ATTEND Physician Assistant | DX: D22.5 Melanocytic nevi of trunk (principal) ==

== ENCOUNTER → 2023-11-20 | Outpatient (REF) | LOC: M EMP 08:35 | PROVIDERS: ATTEND Family Medicine | DX: Z11.52 Encounter for screening for COVID-19 (principal) ==

== ENCOUNTER → 2023-12-17 | Outpatient (REF) | payer BC ==
[2023-12-20 11:57] LABS: HPV APTIMA Not Detected (Not Detected)
== END ==
LOC: M SFHCWAGY 10:36
PROVIDERS: ATTEND Specialist
DX: Z01.419 Encounter for gynecological examination (general) (routine) without abnormal findings (principal)

== ENCOUNTER → 2023-12-17 | Outpatient (CLI) | payer BC | LOC: M WHC 08:10 | PROVIDERS: ATTEND Specialist | DX: Z12.31 Encounter for screening mammogram for malignant neoplasm of breast (principal) ==

== ENCOUNTER → 2024-02-04 | Outpatient (REF) | LOC: M EMP 08:41 | PROVIDERS: ATTEND Family Medicine | DX: Z11.52 Encounter for screening for COVID-19 (principal) ==

== ENCOUNTER → 2024-03-01 | Outpatient (REF) | LOC: M EMP 11:41 | PROVIDERS: ATTEND Family Medicine | DX: Z11.52 Encounter for screening for COVID-19 (principal) ==

== ENCOUNTER → 2024-05-17 | Outpatient (REF) | LOC: M EMP 09:04 | PROVIDERS: ATTEND Family Medicine | DX: Z11.52 Encounter for screening for COVID-19 (principal) ==

== ENCOUNTER → 2024-07-19 | Outpatient (REF) | LOC: M EMP 10:18 | PROVIDERS: ATTEND Family Medicine | DX: Z11.52 Encounter for screening for COVID-19 (principal) ==

== ENCOUNTER → 2024-07-28 | Outpatient (CLI) | payer BC ==
[2024-07-28 07:49] LABS: IONIZED CALCIUM 4.8 MG/DL (4.5-5.3)
[2024-07-28 08:01] LABS: HEMATOCRIT 39.7 % (36.0-47.0); HEMOGLOBIN 13.6 g/dl (12.0-15.5); MEAN CORPUSCULAR HEMOGLOBIN 31.3 pg (27.0-33.0); MEAN CORPUSCULAR HGB CONC 34.3 g/dl (32.0-36.5); MEAN CORPUSCULAR VOLUME 91.5 fl (80.0-96.0); PLATELET COUNT, AUTOMATED 404 10^3/uL (150-450); RED BLOOD COUNT 4.34 10^6/uL (4.00-5.40); WHITE BLOOD COUNT 6.6 10^3/uL (4.0-10.0)
[2024-07-28 08:18] LABS: ALBUMIN 3.8 G/DL (3.2-5.2); ALKALINE PHOSPHATASE 112 U/L (35-104); ALT/SGPT 32 U/L (7.0-40); AST/SGOT 18 U/L (<34); BILIRUBIN,TOTAL 0.4 MG/DL (0.3-1.2); BLOOD UREA NITROGEN 11 MG/DL (9-23); CALCIUM LEVEL 8.8 MG/DL (8.5-10.1); CARBON DIOXIDE LEVEL 29 MMOL/L (20-31); CHLORIDE LEVEL 103 MMOL/L (98-107); CHOLESTEROL LEVEL 158 MG/DL (<200); CHOLESTEROL RISK RATIO 2.76 (<5); CREATININE FOR GFR 0.64 MG/DL (0.55-1.30); GLOMERULAR FILTRATION RATE > 90.0 (>58); GLUCOSE, FASTING 77 MG/DL (60-100); HDL CHOLESTEROL 57.2 MG/DL (>40); IRON (FE) 101 UG/DL (50-170); LDL CHOLESTEROL 79.6 MG/DL (<100); NON-HDL-C 100.8 MG/DL; PERCENT SATURATION 35.8 % (13.2-45.0); POTASSIUM SERUM 4.6 MMOL/L (3.5-5.1); SODIUM LEVEL 138 MMOL/L (136-145); TOTAL IRON BINDING CAPACITY 282 UG/DL (250-425); TOTAL PROTEIN 6.9 G/DL (5.7-8.2); TRIGLYCERIDES LEVEL 106 MG/DL (<150)
[2024-07-28 08:19] LABS: FERRITIN 304.6 NG/ML (7.3-270.7); FOLATE 17.01 NG/ML (>5.4)
[2024-07-28 08:20] LABS: TOTAL 25(OH) VITAMIN D 41.6 NG/ML (20.0-100.0)
[2024-07-28 08:23] LABS: VITAMIN B12 LEVEL > 2000 PG/ML (211-911)
[2024-07-28 09:19] LABS: HEMOGLOBIN A1c 4.1 % (4.0-6.0)
== END ==
LOC: M LAB 07:19
PROVIDERS: ATTEND Physician Assistant
DX: E44.0 Moderate protein-calorie malnutrition (principal)

== ENCOUNTER → 2025-03-29 | Outpatient (CLI) | payer BC ==
[~2025-03-29] MED LIST changes: +ALL10TAB3 PO; +BARI1CAP PO; -INSU100V19 SC; +INSURSDRX SC; +QC F0.52 PO; +TIRZ15PE3; +VITA1CAP20 PO
[2025-03-29 11:37] LABS: BASO # 0.1 10^3/uL (0.0-0.2); BASO % 1.3 % (0.0-1.0); EOS # 0.2 10^3/uL (0.0-0.5); EOS % 2.7 % (0.0-3.0); LYMPH # 1.8 10^3/uL (1.5-5.0); LYMPH % 30.6 % (24.0-44.0); MONO # 0.5 10^3/uL (0.0-0.8); MONO % 8.1 % (2.0-8.0); NEUTROPHILS # 3.4 10^3/uL (1.5-8.5); NEUTROPHILS % 57.0 % (36.0-66.0); PLATELET COUNT, AUTOMATED 330 10^3/uL (150-450)
[2025-03-29 12:14] LABS: ESTIMATED AVERAGE GLUCOSE 82.0 MG/DL (60-110)
[2025-03-29 12:15] LABS: ALT/SGPT 35 U/L (7.0-40); AST/SGOT 26 U/L (<34); CALCIUM LEVEL 8.6 MG/DL (8.5-10.1); CARBON DIOXIDE LEVEL 30 MMOL/L (20-31); CHLORIDE LEVEL 102 MMOL/L (98-107); CHOLESTEROL LEVEL 149 MG/DL (<200); CHOLESTEROL RISK RATIO 2.46 (<5); CREATININE FOR GFR 0.55 MG/DL (0.55-1.30); FREE T4 0.93 NG/DL (0.89-1.76); GLOMERULAR FILTRATION RATE > 90.0 (>58); IRON (FE) 77 UG/DL (50-170); LDL CHOLESTEROL 78.6 MG/DL (<100); MAGNESIUM LEVEL 2.1 MG/DL (1.8-2.4); NON-HDL-C 88.6 MG/DL; PERCENT SATURATION 29.2 % (13.2-45.0); POTASSIUM SERUM 4.5 MMOL/L (3.5-5.1); SODIUM LEVEL 139 MMOL/L (136-145); TOTAL 25(OH) VITAMIN D 50.1 NG/ML (20.0-100.0); TRIGLYCERIDES LEVEL 50 MG/DL (<150)
[2025-03-29 12:16] LABS: VITAMIN B12 LEVEL > 2000 PG/ML (211-911)
== END ==
LOC: M LAB 10:24
PROVIDERS: ATTEND Family Medicine
DX: E55.9 Vitamin D deficiency, unspecified (principal); Z98.84 Bariatric surgery status

== ENCOUNTER 2025-03-30 06:57 | Day surgery (SDC) | payer BC ==
[~2025-03-30] VITALS: Ht 154.9 cm; Wt 91.8 kg
[~2025-03-30 06:57] MED LIST changes: +SIMETHICONE 40MG/0.6ML DROPS 30ML As Ordered ONE
[2025-03-30 08:14] VITALS: TEMP 96.9
[2025-03-30 08:24] VITALS: BP 128/65; O2SAT 97
== END 2025-03-30 08:30 | disposition home or self-care (01) ==
LOC: M OPP 06:57
PROVIDERS: ATTEND Surgery
DX: Z12.11 Encounter for screening for malignant neoplasm of colon (principal); D12.3 Benign neoplasm of transverse colon; G47.30 Sleep apnea, unspecified; Z88.0 Allergy status to penicillin; Z88.1 Allergy status to other antibiotic agents; Z79.51 Long term (current) use of inhaled steroids; Z79.85 Long-term (current) use of injectable non-insulin antidiabetic drugs; Z79.899 Other long term (current) drug therapy; J45.909 Unspecified asthma, uncomplicated; Z98.84 Bariatric surgery status

== ENCOUNTER → 2025-04-01 | Outpatient (CLI) | payer BC ==
[~2025-04-01] MED LIST changes: -SIMETHICONE 40MG/0.6ML DROPS 30ML As Ordered ONE
== END ==
LOC: M WHC 10:00
PROVIDERS: ATTEND Family Medicine
DX: Z12.31 Encounter for screening mammogram for malignant neoplasm of breast (principal); R92.323 Mammographic fibroglandular density, bilateral breasts